=== PATIENT | female | born 1955 | race Caucasian/White ===

== ENCOUNTER → 2020-05-25 | Outpatient (CLI) | payer BC, MEDICARE | END | disposition home or self-care (01) | LOC: LABWHC1 13:52 | PROVIDERS: ATTEND Family Medicine | DX: R05 Cough (principal) | CPT/HCPCS: U0003; C9803 ==

== ENCOUNTER 2023-05-28 12:13 | Inpatient (IN) | payer MEDICARE ==
--- NOTE | 2023-05-28 13:55 | ED ---
SOB HPI - General Chief Complaint: Shortness of Breath Stated Complaint: SOB Time Seen by Provider: 05/28/23 13:01 Source: patient, family, RN notes reviewed Mode of arrival: ambulatory Limitations: no limitations - History of Present Illness Initial Comments: 67-year-old female presents emergency department tingling shortness of breath. Patient states started on Saturday has progressively worsened. She states it's worse when she lays down or she has some exertion. Patient denies any fever, chills or productive cough. She has had mild nasal congestion for 3 weeks. Patient denies any history of CHF denies any leg pain or leg swelling no history of DVT or PE. Patient has a history of diabetes, hypertension hyperlipidemia patient states that she does have some relief if she sits up. - Related Data Allergies Allergy/AdvReac Type Severity Reaction Status Date / Time No Known Allergies Allergy Verified 05/28/23 13:13 Review of Systems ROS Statement: Those systems with pertinent positive or pertinent negative responses have been documented in the HPI. ROS Other: All systems not noted in ROS Statement are negative. Past Medical History Past Medical History: Diabetes Mellitus, Hyperlipidemia, Hypertension History of Any Multi-Drug Resistant Organisms: None Reported Past Surgical History: Cholecystectomy Past Psychological History: No Psychological Hx Reported Smoking Status: Never smoker Past Alcohol Use History: None Reported Past Drug Use History: None Reported General Exam Limitations: no limitations General appearance: alert, in no apparent distress Head exam: Present: atraumatic, normocephalic, normal inspection Eye exam: Present: normal appearance, PERRL, EOMI. Absent: scleral icterus, conjunctival injection, periorbital swelling ENT exam: Present: normal exam, normal oropharynx, mucous membranes moist, TM's normal bilaterally Neck exam: Present: normal inspection, full ROM. Absent: tenderness, meningismus, lymphadenopathy Respiratory exam: Present: rales, decreased breath sounds. Absent: normal lung sounds bilaterally, respiratory distress, wheezes, rhonchi, stridor Cardiovascular Exam: Present: regular rate, normal rhythm, normal heart sounds. Absent: systolic murmur, diastolic murmur, rubs, gallop, clicks Course Vital Signs 05/28/23 05/28/23 13:06 14:15 Temperature 99.1 F Pulse Rate 53 L Respiratory 22 18 Rate Blood Pressure 163/69 O2 Sat by Pulse 85 L Oximetry Medical Decision Making - Medical Decision Making Was pt. sent in by a medical professional or institution (GILLES Marti, CONTENT DEVELOPMENT SPECIALIST, urgent care, hospital, or alf...) When possible be specific @ -No Did you speak to anyone other than the patient for history (EMS, parent, family, police, friend...)? What history was obtained from this source @ -No Did you review nursing and triage notes (agree or disagree)? Why? @ -I reviewed and agree with nursing and triage notes Were old charts reviewed (outside hosp., previous admission, EMS record, old EKG, old radiological studies, urgent care reports/EKG's, alf records)? Report findings @ -No old charts were reviewed Differential Diagnosis (chest pain, altered mental status, abdominal pain women, abdominal pain men, vaginal bleeding, weakness, fever, dyspnea, syncope, headache, dizziness, GI bleed, back pain, seizure, CVA, palpatations, mental health, musculoskeletal)? @ -nDifferential Dyspnea: Coronary syndrome, arrhythmia, tamponade, asthma, COPD, pulmonary embolism, pneumonia, pneumothorax, pulmonary effusion, anaphylaxis, diabetic ketoacidosis, flailed chest, pulmonary contusion, diaphragmatic rupture, anemia, neuromuscular, this is not meant to be an all-inclusive list. e EKG interpreted by me (3pts min.). @ -As above X-rays interpreted by me (1pt min.). @ -Chest x-ray shows pulmonary edema, cardiomegaly CT interpreted by me (1pt min.). @ -CT chest for PE negative for PE shows cardiomegaly, pleural effusions, pulmonary edema U/S interpreted by me (1pt. min.). @ -None done What testing was considered but not performed or refused? (CT, X-rays, U/S, labs)? Why? @ -None What meds were considered but not given or refused? Why? @ -None Did you discuss the management of the patient with other professionals (professionals i.e. GILLES Marti, CONTENT DEVELOPMENT SPECIALIST, lab, RT, psych nurse, social media specialist, semiconductor wafer inspector, teacher, community services officer, supportive employment case manager)? Give summary @ -EMH for admission secondary to pulmonary edema, orthopnea, hypoxia patient's initial pulse ox was 85%. Patient will consult cardiology Was smoking cessation discussed for >3mins.? @ -No Was critical care preformed (if so, how long)? @ -35 Were there social determinants of health that impacted care today? How? (Homelessness, low income, unemployed, alcoholism, drug addiction, transportation, low edu. Level, literacy, decrease access to med. care, custodial, rehab)? @ -No Was there de-escalation of care discussed even if they declined (Discuss DNR or withdrawal of care, Hospice)? DNR status @ -No What co-morbidities impacted this encounter? (DM, HTN, Smoking, COPD, CAD, Cancer, CVA, ARF, Chemo, Hep., AIDS, mental health diagnosis, sleep apnea, morbid obesity)? @ -Hypertension, diabetes Was patient admitted / discharged? Hospital course, mention meds given and route, prescriptions, significant lab abnormalities, going to OR and other pertinent info. @ -Admitted patient presented for orthopnea. Patient found to have pulmonary edema with elevated BMP and pleural effusion. Patient did have initial elevated d-dimer which is negative for PE on CT. Patient's pulse ox was 85% prior to supplemental oxygen. Patient was given Lasix, aspirin was started on heparin for an elevated troponin with cardiology evaluation, every 3 hour troponin. Patient did have echocardiogram ordered. Undiagnosed new problem with uncertain prognosis? @ -No Drug Therapy requiring intensive monitoring for toxicity (Heparin, Nitro, Insulin, Cardizem)? @ -No Were any procedures done? @ -No Diagnosis/symptom? @ -CHF, elevated troponin, hypoxia Acute, or Chronic, or Acute on Chronic? @ -Acute Uncomplicated (without systemic symptoms) or Complicated (systemic symptoms)? @ -Complicated Side effects of treatment? @ -No Exacerbation, Progression, or Severe Exacerbation? @ -No Poses a threat to life or bodily function? How? (Chest pain, [place], [place], pneumonia, PE, COPD, DKA, ARF, appy, cholecystitis, CVA, Diverticulitis, Homicidal, Suicidal, threat to staff... and all critical care pts) @ -yers patient has hypoxia, concern for underlying cardiac disease possible, respiratory arrest - Lab Data Result diagrams: 05/28/23 14:09 05/28/23 14:09 Lab Results 05/28/23 05/28/23 05/28/23 Range/Units 14:09 14:09 14:09 WBC 13.1 H (3.8-10.6) k/uL RBC 4.87 (3.80-5.40) m/uL Hgb 14.2 (11.4-16.0) gm/dL Hct 43.5 (34.0-46.0) % MCV 89.3 (80.0-100.0) fL MCH 29.1 (25.0-35.0) pg MCHC 32.6 (31.0-37.0) g/dL RDW 15.1 (11.5-15.5) % Plt Count 184 (150-450) k/uL MPV 10.8 Neutrophils % 77 % Lymphocytes % 13 % Monocytes % 6 % Eosinophils % 2 % Basophils % 0 % Neutrophils # 10.1 H (1.3-7.7) k/uL Lymphocytes # 1.7 (1.0-4.8) k/uL Monocytes # 0.8 (0-1.0) k/uL Eosinophils # 0.2 (0-0.7) k/uL Basophils # 0.0 (0-0.2) k/uL PT 12.2 (10.0-12.5) sec INR 1.1 (<1.2) APTT 27.3 (22.0-30.0) sec D-Dimer 0.79 H (<0.60) mg/L FEU Sodium 136 L (137-145) mmol/L Potassium 4.2 (3.5-5.1) mmol/L Chloride 101 (98-107) mmol/L Carbon Dioxide 22 (22-30) mmol/L Anion Gap 13 mmol/L BUN 26 H (7-17) mg/dL Creatinine 0.56 (0.52-1.04) mg/dL Est GFR (CKD-EPI)AfAm >90 (>60 ml/min/1.73 sqM) Est GFR (CKD-EPI)NonAf >90 (>60 ml/min/1.73 sqM) Glucose 74 (74-99) mg/dL Calcium 9.1 (8.4-10.2) mg/dL Magnesium 1.5 L (1.6-2.3) mg/dL Total Bilirubin 1.1 (0.2-1.3) mg/dL AST 24 (14-36) U/L ALT 17 (4-34) U/L Alkaline Phosphatase 62 (38-126) U/L Troponin I (0.000-0.034) ng/mL NT-Pro-B Natriuret Pep 5810 pg/mL Total Protein 6.8 (6.3-8.2) g/dL Albumin 3.5 (3.5-5.0) g/dL Coronavirus (PCR) (Not Detectd) 05/28/23 05/28/23 Range/Units 14:09 14:09 WBC (3.8-10.6) k/uL RBC (3.80-5.40) m/uL Hgb (11.4-16.0) gm/dL Hct (34.0-46.0) % MCV (80.0-100.0) fL MCH (25.0-35.0) pg MCHC (31.0-37.0) g/dL RDW (11.5-15.5) % Plt Count (150-450) k/uL MPV Neutrophils % % Lymphocytes % % Monocytes % % Eosinophils % % Basophils % % Neutrophils # (1.3-7.7) k/uL Lymphocytes # (1.0-4.8) k/uL Monocytes # (0-1.0) k/uL Eosinophils # (0-0.7) k/uL Basophils # (0-0.2) k/uL PT (10.0-12.5) sec INR (<1.2) APTT (22.0-30.0) sec D-Dimer (<0.60) mg/L FEU Sodium (137-145) mmol/L Potassium (3.5-5.1) mmol/L Chloride (98-107) mmol/L Carbon Dioxide (22-30) mmol/L Anion Gap mmol/L BUN (7-17) mg/dL Creatinine (0.52-1.04) mg/dL Est GFR (CKD-EPI)AfAm (>60 ml/min/1.73 sqM) Est GFR (CKD-EPI)NonAf (>60 ml/min/1.73 sqM) Glucose (74-99) mg/dL Calcium (8.4-10.2) mg/dL Magnesium (1.6-2.3) mg/dL Total Bilirubin (0.2-1.3) mg/dL AST (14-36) U/L ALT (4-34) U/L Alkaline Phosphatase (38-126) U/L Troponin I 0.058 H* (0.000-0.034) ng/mL NT-Pro-B Natriuret Pep pg/mL Total Protein (6.3-8.2) g/dL Albumin (3.5-5.0) g/dL Coronavirus (PCR) Not Detected (Not Detectd) - EKG Data -: EKG Interpreted by Me EKG Comments: EKG performed at 13:34 A. fib rate of 55 QRS 72 QT/QTC 431/420 Critical Care Time Critical Care Time: Yes Total Critical Care Time: 35 Disposition Clinical Impression: Congestive heart failure, Dyspnea, Elevated troponin Disposition: ADMITTED IP TO THIS HOSP Condition: Fair Referrals: Tomasz Singh DO [Primary Care Provider] - 1-2 days Time of Disposition: 15:39
[2023-05-28 14:22] LABS: Basophils % (A) 0 %; Eosinophils # (A) 0.2 k/uL (0-0.7); Eosinophils % (A) 2 %; HCT 43.5 % (34.0-46.0); HGB 14.2 gm/dL (11.4-16.0); Lymphocytes # (A) 1.7 k/uL (1.0-4.8); Lymphocytes % (A) 13 %; MCH 29.1 pg (25.0-35.0); MCHC 32.6 g/dL (31.0-37.0); MCV 89.3 fL (80.0-100.0); Mean Platelet Volume 10.8; Monocytes # (A) 0.8 k/uL (0-1.0); Monocytes % (A) 6 %; Neutrophils # (A) 10.1 k/uL (1.3-7.7); Neutrophils % (A) 77 %; Platelet Count 184 k/uL (150-450); RBC 4.87 m/uL (3.80-5.40); RDW 15.1 % (11.5-15.5); WBC 13.1 k/uL (3.8-10.6)
--- NOTE | 2023-05-28 14:22 | XR ---
EXAMINATION TYPE: XR chest 2V DATE OF EXAM: 05/28/2023 COMPARISON: NONE HISTORY: Shortness of breath TECHNIQUE: Frontal and lateral views of the chest are obtained. FINDINGS: Scattered senescent parenchymal changes noted. No evidence for infiltrate. No evidence for atelectasis. There is evidence of cardiomegaly with pulmonary venous congestion without overt failure. Mediastinal structures are stable and grossly unremarkable. No evidence for hilar prominence. Degenerative changes dorsal spine. IMPRESSION: 1. There is evidence of cardiomegaly with pulmonary venous congestion without overt failure.
[2023-05-28 14:40] LABS: INR 1.1 (<1.2); Partial Thromboplastin Time 27.3 sec (22.0-30.0); Prothrombin Time 12.2 sec (10.0-12.5)
[2023-05-28 14:48] LABS: ALT 17 U/L (4-34); AST 24 U/L (14-36); African American GFR (CKD) >90 (>60 ml/min/1.73 sqM); Albumin 3.5 g/dL (3.5-5.0); Alkaline Phosphatase 62 U/L (38-126); Anion Gap 13 mmol/L; Blood Urea Nitrogen 26 mg/dL (7-17); Calcium 9.1 mg/dL (8.4-10.2); Carbon Dioxide 22 mmol/L (22-30); Chloride 101 mmol/L (98-107); Glucose 74 mg/dL (74-99); Magnesium 1.5 mg/dL (1.6-2.3); Non-African American GFR(CKD) >90 (>60 ml/min/1.73 sqM); Potassium 4.2 mmol/L (3.5-5.1); Sodium 136 mmol/L (137-145); Total Bilirubin 1.1 mg/dL (0.2-1.3); Total Protein 6.8 g/dL (6.3-8.2)
[2023-05-28 14:57] LABS: NT-Pro-B-Type Natriuretic Pept 5810 pg/mL
[2023-05-28] MEDS ORDERED: HEPARIN SODIUM 1,000 UN/ML (10ML VL) IV PRN (15:04)
[2023-05-28] MEDS ORDERED: HEPARIN SODIUM 1,000 UN/ML (10ML VL) IV ONE (15:04)
[2023-05-28] MEDS ORDERED: ASPIRIN 81 MG PO STA (15:05)
[2023-05-28] MEDS ORDERED: FUROSEMIDE 10 MG/ML 4 ML VIAL IV STA (15:05)
--- NOTE | 2023-05-28 15:31 | CT ---
EXAMINATION TYPE: CT chest angio for PE CT DLP: 575 mGycm, Automated exposure control for dose reduction was used. DATE OF EXAM: 05/28/2023 3:24 PM COMPARISON: Chest radiograph from same day. CLINICAL INDICATION:Female, 67 years old with history of sob; elevated d-dimer TECHNIQUE/CONTRAST: CTA scan of the thorax is performed with IV Contrast, patient injected with 100 mL of Isovue 370, MIP images are created and reviewed these are created on a separate workstation.. FINDINGS: Pulmonary Artery: There is no evidence for a filling defect within the pulmonary vasculature to sugge st acute pulmonary embolism. The pulmonary artery is of normal size. Lungs/Pleura: Mild intralobular septal thickening. No evidence for consolidation or pneumothorax. Tra ce bilateral pleural effusions. Airway: Large airways are patent. Heart: Heart is enlarged for size. There is mitral valve annular cusp patient's. Coronary artery cusp patient's are mild. Vasculature: No evidence of aortic aneurysm. Mediastinum: No gross evidence of adenopathy. Musculoskeletal: Moderate degenerative disc disease changes are present throughout the thoracolumbar spine. Soft Tissues: Unremarkable. Lower neck: No significant findings. Upper Abdomen: Nodular contour to liver. Spleen is within normal limits for size. The gallbladder dianna gically absent.. IMPRESSION: 1. No evidence of pulmonary embolism. 2. Cardiomegaly with trace bilateral pleural effusions an pulmonary vascular prominence. Correlate fo r for congestive heart failure 3. Hepatic cirrhosis.
[2023-05-28] MEDS ORDERED: FUROSEMIDE 10 MG/ML 4 ML VIAL IV SCH (15:45)
[2023-05-28] MEDS: HEPARIN SOD,PORK IN 0.45% NACL 25,000 UNIT in 0.45% NACL 1 250ML.BAG IV SCH (16:13)
[2023-05-28] MEDS ORDERED: DEXTROSE 50% SYRINGE 50 ML IVP PRN ×2 (17:57)
[2023-05-28 18:42] LABS: Glucose,Whole Blood 123 mg/dL (70-110)
[2023-05-28 20:30] LABS: Glucose,Whole Blood 228 mg/dL (70-110)
[2023-05-28] MEDS: ATORVASTATIN 40 MG TAB PO SCH (21:41)
[2023-05-28] MEDS: INSULIN ASPART (NovoLOG) 100 UNIT/ML VIAL SQ SCH (21:41)
[2023-05-29] MEDS: ACETAMINOPHEN TAB 325 MG TAB PO PRN ×2 (05:55→23:51)
[2023-05-29 06:38] LABS: Glucose,Whole Blood 100 mg/dL (70-110)
[2023-05-29] MEDS: INSULIN ASPART (NovoLOG) 100 UNIT/ML VIAL SQ SCH ×7 (06:41→20:43)
[2023-05-29] MEDS: FUROSEMIDE 10 MG/ML 4 ML VIAL IV SCH ×2 (06:50→17:02)
[2023-05-29] MEDS: PARoxetine 20 MG TAB PO SCH (08:48)
[2023-05-29] MEDS: DAPAGLIFLOZIN PROPANEDIOL 10 MG TABLET PO SCH (08:48)
[2023-05-29] MEDS: ASPIRIN 81 MG PO SCH (08:48)
[2023-05-29 08:58] LABS: Basophils % (A) 1 %; Eosinophils # (A) 0.3 k/uL (0-0.7); Eosinophils % (A) 3 %; HCT 42.1 % (34.0-46.0); HGB 13.7 gm/dL (11.4-16.0); Lymphocytes # (A) 1.5 k/uL (1.0-4.8); Lymphocytes % (A) 16 %; MCH 29.3 pg (25.0-35.0); MCHC 32.6 g/dL (31.0-37.0); MCV 89.9 fL (80.0-100.0); Monocytes # (A) 0.6 k/uL (0-1.0); Monocytes % (A) 7 %; Neutrophils # (A) 6.9 k/uL (1.3-7.7); Neutrophils % (A) 72 %; Platelet Count 173 k/uL (150-450); RBC 4.69 m/uL (3.80-5.40); WBC 9.6 k/uL (3.8-10.6)
[2023-05-29] MEDS ORDERED: METOPROLOL SUCCINATE (ER) 50 MG TAB.ER.24H PO SCH (09:00)
[2023-05-29] MEDS ORDERED: NALOXONE 0.4 MG/ML 1 ML VIAL IV PRN (09:10)
[2023-05-29] MEDS ORDERED: ONDANSETRON 4 MG/2 ML VIAL IVP PRN (09:10)
[2023-05-29 09:13] LABS: INR 1.2 (<1.2); Prothrombin Time 12.5 sec (10.0-12.5)
--- NOTE | 2023-05-29 11:21 | P.HPIM ---
History of Present Illness H&P Date: 05/29/23 Chief Complaint: Shortness of breath * 67-year-old lady with past medical history of diabetes mellitus, hypertension, hyperlipidemia presents to the emergency department with difficulty in breathing. Patient had symptom onset for 72 hours prior to presentation. Patient is unable to lay down and also complained of exertional shortness of breath. Patient states she had nasal congestion for 3 weeks. She denies associated fever, chills, cough. * Workup initiated in ER showed CBC which showed WBC of 13.1 hemoglobin of 14.2 platelet count of 184. INR is 1.1, d-dimer 0.79 * Serum chemistry shows sodium 136 potassium 4.2 carbon dioxide 20 to be and 26 creatinine 0.57 blood glucose 228 * Troponin 0.043, N-terminal proBNP 5810 * Chest x-ray shows evidence of cardiomegaly with pulmonary venous congestion * CT chest negative for pulmonary embolism cardiomegaly with pleural effusion * Patient had elevated troponin and serial troponins ordered, EKG obtained showed irregular rhythm with atrial fibrillation * Patient started on heparin drip with consultation from cardiology REVIEW OF SYSTEMS: Shortness of breath, orthopnea CONSTITUTIONAL: No fever, no malaise, no fatigue. HEENT: No recent visual problems or hearing problems. Denied any sore throat. CARDIOVASCULAR: Shortness of breath, orthopnea PULMONARY: Shortness of breath, orthopnea GASTROINTESTINAL: No diarrhea, no nausea, no vomiting, no abdominal pain. NEUROLOGICAL: No headaches, no weakness, no numbness. HEMATOLOGICAL: Denies any bleeding or petechiae. GENITOURINARY: Denies any burning micturition, frequency, or urgency. MUSCULOSKELETAL/RHEUMATOLOGICAL: Denies any joint pain, swelling, or any muscle pain. ENDOCRINE: Denies any polyuria or polydipsia. PHYSICAL EXAMINATION: GENERAL: The patient is alert and oriented x3, HEENT: Pupils are round and equally reacting to light. EOMI. CARDIOVASCULAR: S1 and S2 present. No murmurs, rubs, or gallops. Bilateral leg edema PULMONARY: Chest is clear to auscultation, no wheezing or crackles. ABDOMEN: Soft, nontender, nondistended, normoactive bowel sounds. No palpable organomegaly. MUSCULOSKELETAL: No joint swelling or deformity. EXTREMITIES: No cyanosis, clubbing, or pedal edema. NEUROLOGICAL: Gross neurological examination did not reveal any focal deficits. SKIN: No rashes. Past Medical History Past Medical History: Diabetes Mellitus, Hyperlipidemia, Hypertension History of Any Multi-Drug Resistant Organisms: None Reported Past Surgical History: Cholecystectomy Past Anesthesia/Blood Transfusion Reactions: No Reported Reaction Past Psychological History: No Psychological Hx Reported Smoking Status: Never smoker Past Alcohol Use History: None Reported Past Drug Use History: None Reported - Past Family History Father Family Medical History: Congestive Heart Failure (CHF), Diabetes Mellitus Mother Family Medical History: Congestive Heart Failure (CHF), Diabetes Mellitus Son(s) Family Medical History: Diabetes Mellitus Sister(s) Family Medical History: Diabetes Mellitus Medications and Allergies Home Medications Medication Instructions Recorded Confirmed Type Aspirin EC [Ecotrin Low Dose] 81 mg PO DAILY 05/28/23 05/28/23 History Dapagliflozin Propanediol [Farxiga] 10 mg PO DAILY 05/28/23 05/28/23 History INSULIN ASPART (NovoLOG) [NovoLOG 20 unit SQ ACHS 05/28/23 05/28/23 History (formulary)] Insulin Degludec [Tresiba 140 units SQ HS 05/28/23 05/28/23 History Flextouch U-200 Pen] Liraglutide [Victoza 3-Luca] 1.8 mg SQ DAILY 05/28/23 05/28/23 History Lovastatin [Mevacor] 80 mg PO HS 05/28/23 05/28/23 History Metoprolol Succinate [Toprol XL] 50 mg PO DAILY 05/28/23 05/28/23 History PARoxetine HCL [Paxil] 20 mg PO DAILY 05/28/23 05/28/23 History hydroCHLOROthiazide [Hydrodiuril] 25 mg PO DAILY 05/28/23 05/28/23 History metFORMIN HCL [Glucophage] 1,000 mg PO BID 05/28/23 05/28/23 History Allergies Allergy/AdvReac Type Severity Reaction Status Date / Time No Known Allergies Allergy Verified 05/28/23 15:44 Physical Exam Vitals: Vital Signs Temp Pulse Pulse Resp BP BP Pulse Ox 05/29/23 08:00 98.2 F 53 L 18 159/67 98 05/29/23 04:00 45 L 18 136/70 98 05/29/23 02:00 44 L 16 05/29/23 00:00 44 L 16 152/79 98 05/28/23 20:00 98.1 F 51 L 20 123/61 95 05/28/23 17:35 50 L 18 106/61 97 05/28/23 14:15 18 05/28/23 13:06 99.1 F 53 L 22 163/69 85 L Intake and Output 05/28/23 05/29/23 05/29/23 22:59 06:59 14:59 Output Total 850 Balance -850 Output: Urine 850 Other: Voiding Method Toilet Toilet Toilet # Voids 1 Weight 94.801 kg 95 kg Results CBC & Chem 7: 05/29/23 08:27 05/28/23 14:09 Labs: Abnormal Lab Results - Last 24 Hours (Table) 05/28/23 05/28/23 05/28/23 Range/Units 14:09 14:09 14:09 WBC 13.1 H (3.8-10.6) k/uL Neutrophils # 10.1 H (1.3-7.7) k/uL APTT (22.0-30.0) sec D-Dimer 0.79 H (<0.60) mg/L FEU Sodium 136 L (137-145) mmol/L BUN 26 H (7-17) mg/dL POC Glucose (mg/dL) (70-110) mg/dL Magnesium 1.5 L (1.6-2.3) mg/dL Troponin I (0.000-0.034) ng/mL 05/28/23 05/28/23 05/28/23 Range/Units 14:09 18:31 18:38 WBC (3.8-10.6) k/uL Neutrophils # (1.3-7.7) k/uL APTT (22.0-30.0) sec D-Dimer (<0.60) mg/L FEU Sodium (137-145) mmol/L BUN (7-17) mg/dL POC Glucose (mg/dL) 123 H (70-110) mg/dL Magnesium (1.6-2.3) mg/dL Troponin I 0.058 H* 0.052 H* (0.000-0.034) ng/mL 05/28/23 05/28/23 05/28/23 Range/Units 20:28 20:51 20:51 WBC (3.8-10.6) k/uL Neutrophils # (1.3-7.7) k/uL APTT 47.1 H (22.0-30.0) sec D-Dimer (<0.60) mg/L FEU Sodium (137-145) mmol/L BUN (7-17) mg/dL POC Glucose (mg/dL) 228 H (70-110) mg/dL Magnesium (1.6-2.3) mg/dL Troponin I 0.043 H* (0.000-0.034) ng/mL Thrombosis Risk Factor Assmnt - Choose All That Apply Any of the Below Risk Factors Present?: Yes Each Factor Represents 1 point: Obesity (BMI >25) Other Risk Factors: Yes Each Risk Factor Represents 2 Points: Age 61-74 years Other congenital or acquired thrombophilia - If yes, enter type in comment: No Thrombosis Risk Factor Assessment Total Risk Factor Score: 3 Thrombosis Risk Factor Assessment Level: Moderate Risk Assessment and Plan Assessment: Assessment and plan Acute onset congestive heart failure Non-ST elevated MA Atrial fibrillation new onset Diabetes mellitus type 2 Hypertension Hyperlipidemia * In regards to acute congestive heart failure echocardiogram ordered, continue patient on IV Lasix continue to monitor intake and output, cardiology consulted serial troponins ordered * In regards to elevated troponin, continue aspirin, Lipitor, IV heparin cardiology consulted echocardiogram ordered * In regards to diabetes mellitus Accu-Cheks before meals at bedtime continue patient on correctional insulin monitor for hypoglycemia * In regards to hypertension continue metoprolol * In regards to new onset atrial fibrillation, continue telemetry monitoring will appreciate input from cardiology continue patient on IV heparin * CODE STATUS is full code
[2023-05-29 12:29] LABS: Glucose,Whole Blood 155 mg/dL (70-110)
--- NOTE | 2023-05-29 12:43 | P.CRDCN ---
History of Present Illness Consult date: 05/29/23 Consult reason: congestive heart failure (Abnormal EKG) History of present illness: History of present illness: This is a 67 year old female with no previous cardiac history, does not follow with a cork compounder. She has a past medical history of diabetes, hypertension, hyperlipidemia. She denies any history of lung problems are COPD. Patient states that she developed a breathing issue that started on Saturday especially when she lays down. On Saturday she noticed that she was feeling lightheaded and has not had that feeling before. She saw her primary care physician on Saturday and was instructed to come in the hospital. She has never had this problem before. She denies any new medications. She denies history of heart failure or any arrhythmias. She states that she occasionally gets ankle swelling and is usually able to lay flat in bed. She has been started on IV Lasix and feels that she is better today and she has been urinating quite a bit. States that she is almost back to normal. Patient has been started on a heparin drip and IV Lasix. Telemetry shows heart rate in the 30s and 40s. Patient denies having stress test done in the past. EKG sinus rhythm second degree block most likely type II, possibly type I Chest x-ray: Cardiomegaly with pulmonary venous congestion without overt failure. CTA of the chest revealed no pulmonary embolism. Cardiomegaly with trace bilateral pleural effusions and pulmonary vascular prominence. Hepatic cirrhosis. Initial WBC 13.1 on 9.6, hemoglobin 13.7, platelet count 173. INR 1.2. D-dimer 0.79. Electrolytes and renal function unremarkable. Troponins 0.058, 0.052, 0.043 and 0.027. Home cardiac medications: aspirin 81 mg daily, Farxiga 10 mg daily, hydrochlorothiazide 25 mg daily, lovastatin 80 mg at bedtime, Toprol-XL 50 mg daily Review Of Systems: At the time of my evaluation: Constitutional: No fever, no chills. No weakness, fatigue or lethargy. EENT: No headache. No dizziness. Lungs: No shortness of breath, cough, no sputum production. No wheezing. Cardiovascular: No chest pain, no lower extremity edema. No palpitations. No paroxysmal nocturnal dyspnea. No orthopnea. No lightheadedness or dizziness. No syncopal episodes. Abdominal: No abdominal pain. No nausea, vomiting. No diarrhea. No constipation. No bloody or tarry stools. Genitourinary: No dysuria.. No urinary retention. Musculoskeletal: No myalgias. No muscle weakness, no frequent falls. No back pain. No neck pain. Integumentary: No wounds. No rash. No unusual bruising. Neurologic: No aphasia. No facial droop. No change in mentation. No head injury. No headache. Physical examination: Gen: This is a [ ] VS: reviewed HEENT: Head is atraumatic, normocephalic. Pupils equal, round. Sclerae is anicteric. NECK: Supple. No JVD. . LUNGS: Clear to auscultation. No wheezes or rhonchi. No intercostal retractions. HEART: Regular rate and rhythm. No murmur. ABDOMEN: Soft No tenderness. EXTREMITIES: No pedal edema. No calf tenderness. NEUROLOGICAL: Patient is awake, alert and oriented x3. Assessment: Acute heart failure Second-degree heart block likely type II, possible type I Elevated troponins, rule out non-ST GA Hypertension Hyperlipidemia Diabetes Plan: Discontinue beta adalid Continue IV Lasix Monitor I&O, daily weights, electrolytes and renal function Continue heparin drip Obtain 2-D echocardiogram and Doppler study to assess cardiac structure and f unction Likely plan for cardiac catheterization or stress testing depending on results of echocardiogram Further recommendations to follow based upon clinical course Thank you kindly for this consultation. Nurse practitioner note has been reviewed, I agree with documented findings and plan of care. Patient was seen and examined. Past Medical History Past Medical History: Diabetes Mellitus, Hyperlipidemia, Hypertension History of Any Multi-Drug Resistant Organisms: None Reported Past Surgical History: Cholecystectomy Past Anesthesia/Blood Transfusion Reactions: No Reported Reaction Past Psychological History: No Psychological Hx Reported Smoking Status: Never smoker Past Alcohol Use History: None Reported Past Drug Use History: None Reported - Past Family History Father Family Medical History: Congestive Heart Failure (CHF), Diabetes Mellitus Mother Family Medical History: Congestive Heart Failure (CHF), Diabetes Mellitus Son(s) Family Medical History: Diabetes Mellitus Sister(s) Family Medical History: Diabetes Mellitus Medications and Allergies Home Medications Medication Instructions Recorded Confirmed Type Aspirin EC [Ecotrin Low Dose] 81 mg PO DAILY 05/28/23 05/28/23 History Dapagliflozin Propanediol [Farxiga] 10 mg PO DAILY 05/28/23 05/28/23 History INSULIN ASPART (NovoLOG) [NovoLOG 20 unit SQ ACHS 05/28/23 05/28/23 History (formulary)] Insulin Degludec [Tresiba 140 units SQ HS 05/28/23 05/28/23 History Flextouch U-200 Pen] Liraglutide [Victoza 3-Luca] 1.8 mg SQ DAILY 05/28/23 05/28/23 History Lovastatin [Mevacor] 80 mg PO HS 05/28/23 05/28/23 History Metoprolol Succinate [Toprol XL] 50 mg PO DAILY 05/28/23 05/28/23 History PARoxetine HCL [Paxil] 20 mg PO DAILY 05/28/23 05/28/23 History hydroCHLOROthiazide [Hydrodiuril] 25 mg PO DAILY 05/28/23 05/28/23 History metFORMIN HCL [Glucophage] 1,000 mg PO BID 05/28/23 05/28/23 History Allergies Allergy/AdvReac Type Severity Reaction Status Date / Time No Known Allergies Allergy Verified 05/28/23 15:44 Physical Exam Vitals: Vital Signs Temp Pulse Pulse Resp BP BP Pulse Ox 05/29/23 09:49 97 05/29/23 08:00 98.2 F 53 L 18 159/67 98 05/29/23 04:00 45 L 18 136/70 98 05/29/23 02:00 44 L 16 05/29/23 00:00 44 L 16 152/79 98 05/28/23 20:00 98.1 F 51 L 20 123/61 95 05/28/23 17:35 50 L 18 106/61 97 05/28/23 14:15 18 05/28/23 13:06 99.1 F 53 L 22 163/69 85 L Intake and Output 05/28/23 05/29/23 05/29/23 22:59 06:59 14:59 Output Total 850 Balance -850 Output: Urine 850 Other: Voiding Method Toilet Toilet Toilet # Voids 1 Weight 94.801 kg 95 kg Results 05/29/23 08:27 05/28/23 14:09 Cardiac Enzymes 05/28/23 05/28/23 05/28/23 Range/Units 14:09 14:09 18:31 AST 24 (14-36) U/L Troponin I 0.058 H* 0.052 H* (0.000-0.034) ng/mL 05/28/23 Range/Units 20:51 AST (14-36) U/L Troponin I 0.043 H* (0.000-0.034) ng/mL Coagulation 05/28/23 05/28/23 05/29/23 Range/Units 14:09 20:51 08:27 PT 12.2 12.5 (10.0-12.5) sec APTT 27.3 47.1 H (22.0-30.0) sec CBC 05/28/23 05/29/23 Range/Units 14:09 08:27 WBC 13.1 H 9.6 (3.8-10.6) k/uL RBC 4.87 4.69 (3.80-5.40) m/uL Hgb 14.2 13.7 (11.4-16.0) gm/dL Hct 43.5 42.1 (34.0-46.0) % Plt Count 184 173 (150-450) k/uL Comprehensive Metabolic Panel 05/28/23 Range/Units 14:09 Sodium 136 L (137-145) mmol/L Potassium 4.2 (3.5-5.1) mmol/L Chloride 101 (98-107) mmol/L Carbon Dioxide 22 (22-30) mmol/L BUN 26 H (7-17) mg/dL Creatinine 0.56 (0.52-1.04) mg/dL Glucose 74 (74-99) mg/dL Calcium 9.1 (8.4-10.2) mg/dL AST 24 (14-36) U/L ALT 17 (4-34) U/L Alkaline Phosphatase 62 (38-126) U/L Total Protein 6.8 (6.3-8.2) g/dL Albumin 3.5 (3.5-5.0) g/dL Current Medications Generic Name Dose Route Start Last Admin Trade Name Freq PRN Reason Stop Dose Admin Acetaminophen 650 mg 05/29/23 05:49 05/29/23 05:55 Acetaminophen Tab 325 Mg Tab PO 650 mg Q6HR PRN Administration Fever and/ or Mild Pain Aspirin 81 mg 05/29/23 09:00 05/29/23 08:48 Aspirin 81 Mg PO 81 mg DAILY ISAÍAS Administration Atorvastatin Calcium 40 mg 05/28/23 21:00 05/28/23 21:41 Atorvastatin 40 Mg Tab PO 40 mg HS [facility] Administration Dapagliflozin 10 mg 05/29/23 09:00 05/29/23 08:48 Dapagliflozin Propanediol 10 Mg Tablet PO 10 mg DAILY ISAÍAS Administration Dextrose/Water 25 ml 05/28/23 17:57 Dextrose 50% Syringe 50 Ml IVP PER PROTOCOL PRN Hypoglycemia Protocol Dextrose/Water 50 ml 05/28/23 17:57 Dextrose 50% Syringe 50 Ml IVP PER PROTOCOL PRN Hypoglycemia Protocol Furosemide 40 mg 05/29/23 06:00 05/29/23 06:50 Furosemide 10 Mg/Ml 4 Ml Vial IV 40 mg Q12H ISAÍAS Administration Heparin Sodium (Porcine) 0 unit 05/28/23 15:04 Heparin Sodium 1,000 Un/Ml (10ml Vl) IV PER PROTOCOL PRN Low PTT Protocol Heparin Sodium/Sodium Chloride 250 mls @ 11.376 mls/hr 05/28/23 15:15 05/28/23 16:13 25,000 unit/ Sodium Chloride IV 12 units/kg/hr .[id number] ISAÍAS 11.376 mls/hr Administration Protocol 12 UNITS/KG/HR Insulin Aspart 0 unit 05/28/23 21:00 05/29/23 06:41 Insulin Aspart (Novolog) 100 Unit/Ml Vial SQ Not Given [facility] Protocol Insulin Aspart 20 unit 05/29/23 12:30 Insulin Aspart (Novolog) 100 Unit/Ml Vial SQ [facility] Insulin Detemir 80 unit 05/29/23 21:00 Insulin Detemir (Levemir) 100 Unit/Ml Syr SQ [facility] Metformin HCl 1,000 mg 05/29/23 17:30 Metformin 500 Mg Tab PO BID-W/MEALS [facility] Metoprolol Succinate 50 mg 05/29/23 09:00 05/29/23 08:48 Metoprolol Succinate (Er) 50 Mg Tab.Er.24h PO 50 mg DAILY [facility] Administration Naloxone HCl 0.2 mg 05/29/23 09:10 Naloxone 0.4 Mg/Ml 1 Ml Vial IV Q2M PRN Opioid Reversal Ondansetron HCl 4 mg 05/29/23 09:10 Ondansetron 4 Mg/2 Ml Vial IVP Q8HR PRN Nausea And Vomiting Paroxetine HCl 20 mg 05/29/23 09:00 05/29/23 08:48 Paroxetine 20 Mg Tab PO 20 mg DAILY ISAÍAS Administration Intake and Output 05/28/23 05/29/23 05/29/23 22:59 06:59 14:59 Output Total 850 Balance -850 Output: Urine 850 Other: Voiding Method Toilet Toilet Toilet # Voids 1 Weight 94.801 kg 95 kg 05/29/23 08:27 05/28/23 14:09
[2023-05-29] MEDS: HEPARIN SOD,PORK IN 0.45% NACL 25,000 UNIT in 0.45% NACL 1 250ML.BAG IV SCH ×2 (13:22→20:43)
[2023-05-29 16:08] LABS: Glucose,Whole Blood 142 mg/dL (70-110)
[2023-05-29] MEDS: metFORMIN 500 MG TAB PO SCH (16:54)
[2023-05-29 20:23] LABS: Glucose,Whole Blood 133 mg/dL (70-110)
[2023-05-29] MEDS ORDERED: TEMAZEPAM 7.5 MG CAP PO PRN (20:29)
[2023-05-29] MEDS: INSULIN DETEMIR (LEVEMIR) 100 UNIT/ML SYR SQ SCH (20:42)
[2023-05-29] MEDS: ATORVASTATIN 40 MG TAB PO SCH (20:43)
[2023-05-29] MEDS ORDERED: NON FORMULARY DRUG (Lovastatin 40 MG Tab) PO SCH (21:00)
[2023-05-30 02:39] LABS: HCT 43.4 % (34.0-46.0); HGB 14.3 gm/dL (11.4-16.0); MCH 29.6 pg (25.0-35.0); MCHC 32.9 g/dL (31.0-37.0); Mean Platelet Volume 10.4; Platelet Count 208 k/uL (150-450); RBC 4.82 m/uL (3.80-5.40); WBC 11.7 k/uL (3.8-10.6)
[2023-05-30 03:09] LABS: Glucose,Whole Blood 71 mg/dL (70-110)
[2023-05-30 03:20] LABS: NT-Pro-B-Type Natriuretic Pept 1190 pg/mL
[2023-05-30 03:32] LABS: African American GFR (CKD) >90 (>60 ml/min/1.73 sqM); Anion Gap 10 mmol/L; Blood Urea Nitrogen 32 mg/dL (7-17); C Reactive Protein 8.4 mg/dL (<1.0); Carbon Dioxide 29 mmol/L (22-30); Chloride 98 mmol/L (98-107); Glucose 60 mg/dL (74-99); Non-African American GFR(CKD) >90 (>60 ml/min/1.73 sqM); Potassium 3.7 mmol/L (3.5-5.1); Sodium 137 mmol/L (137-145)
[2023-05-30 07:04] LABS: Glucose,Whole Blood 124 mg/dL (70-110)
[2023-05-30] MEDS: FUROSEMIDE 10 MG/ML 4 ML VIAL IV SCH ×2 (07:05→17:17)
[2023-05-30] MEDS: metFORMIN 500 MG TAB PO SCH ×2 (07:05→15:45)
[2023-05-30] MEDS: INSULIN ASPART (NovoLOG) 100 UNIT/ML VIAL SQ SCH ×8 (07:05→21:03)
[2023-05-30] MEDS: ASPIRIN 81 MG PO SCH (09:32)
[2023-05-30] MEDS: DAPAGLIFLOZIN PROPANEDIOL 10 MG TABLET PO SCH (09:32)
[2023-05-30] MEDS: PARoxetine 20 MG TAB PO SCH (09:32)
[2023-05-30 11:21] LABS: Glucose,Whole Blood 137 mg/dL (70-110)
--- NOTE | 2023-05-30 11:53 | P.PN ---
Subjective Progress Note Date: 05/30/23 * 67-year-old lady with past medical history of diabetes mellitus, hypertension, hyperlipidemia presents to the emergency department with difficulty in breathing. Patient had symptom onset for 72 hours prior to presentation. Patient is unable to lay down and also complained of exertional shortness of breath. Patient states she had nasal congestion for 3 weeks. She denies associated fever, chills, cough. * Workup initiated in ER showed CBC which showed WBC of 13.1 hemoglobin of 14.2 platelet count of 184. INR is 1.1, d-dimer 0.79 * Serum chemistry shows sodium 136 potassium 4.2 carbon dioxide 20 to be and 26 creatinine 0.57 blood glucose 228 * Troponin 0.043, N-terminal proBNP 5810 * Chest x-ray shows evidence of cardiomegaly with pulmonary venous congestion * CT chest negative for pulmonary embolism cardiomegaly with pleural effusion * Patient had elevated troponin and serial troponins ordered, EKG obtained showed irregular rhythm with atrial fibrillation * Patient started on heparin drip with consultation from cardiology * 05/30/23: Patient seen and evaluated bedside, patient's her breathing has improved, on oxygen through nasal cannula, patient on 2 L of oxygen, noted to have bradycardia however asymptomatic. Serum chemistry within normal limits. HbA1c 8.6 CRP elevated N-terminal proBNP elevated. Continue patient on heparin drip, Objective - Vital Signs Vital signs: Vital Signs Temp 97.4 F L 05/30/23 08:00 Pulse 57 L 05/30/23 08:00 Resp 17 05/30/23 08:00 BP 159/65 05/30/23 08:00 Pulse Ox 98 05/30/23 08:00 FiO2 Intake & Output 05/29/23 05/30/23 05/30/23 18:59 06:59 18:59 Intake Total 790 78.494 Output Total 900 800 Balance -110 -721.506 Weight 92.1 kg Intake: Intake, IV Titration 250 78.494 Amount Heparin Sod,Pork in 0.45% 250 78.494 NaCl 25,000 unit In 0.45 % NaCl 1 250ml.bag @ 12 UNITS/KG/HR 11.376 mls/hr IV .[id number] [facility] Rx#: [id number] Oral 540 Output: Urine 900 800 Other: Voiding Method Toilet Toilet Toilet # Voids 1 2 # Bowel Movements 1 1 - Exam PHYSICAL EXAMINATION: GENERAL: The patient is alert and oriented x3,nasal cannula in place HEENT: Pupils are round and equally reacting to light. EOMI. CARDIOVASCULAR: S1 and S2 present. No murmurs, rubs, or gallops. Bilateral leg edema, bradycardia PULMONARY: Decreased breath sounds bilaterally, lower extremity edema ABDOMEN: Soft, nontender, nondistended, normoactive bowel sounds. No palpable organomegaly. MUSCULOSKELETAL: No joint swelling or deformity. EXTREMITIES: No cyanosis, clubbing, or pedal edema. NEUROLOGICAL: Gross neurological examination did not reveal any focal deficits. SKIN: No rashes. - Labs CBC & Chem 7: 05/30/23 02:27 05/30/23 02:27 Labs: Abnormal Lab Results - Last 24 Hours (Table) 05/29/23 05/29/23 05/29/23 Range/Units 12:28 16:07 18:09 WBC (3.8-10.6) k/uL APTT 35.6 H (22.0-30.0) sec BUN (7-17) mg/dL Glucose (74-99) mg/dL POC Glucose (mg/dL) 155 H 142 H (70-110) mg/dL Hemoglobin A1c (<=6.0) % C-Reactive Protein (<1.0) mg/dL 05/29/23 05/30/23 05/30/23 Range/Units 20:22 02:27 02:27 WBC 11.7 H (3.8-10.6) k/uL APTT (22.0-30.0) sec BUN (7-17) mg/dL Glucose (74-99) mg/dL POC Glucose (mg/dL) 133 H (70-110) mg/dL Hemoglobin A1c 8.6 H (<=6.0) % C-Reactive Protein (<1.0) mg/dL 05/30/23 05/30/23 05/30/23 Range/Units 02:27 02:27 07:02 WBC (3.8-10.6) k/uL APTT 41.1 H (22.0-30.0) sec BUN 32 H (7-17) mg/dL Glucose 60 L (74-99) mg/dL POC Glucose (mg/dL) 124 H (70-110) mg/dL Hemoglobin A1c (<=6.0) % C-Reactive Protein 8.4 H (<1.0) mg/dL 05/30/23 Range/Units 11:20 WBC (3.8-10.6) k/uL APTT (22.0-30.0) sec BUN (7-17) mg/dL Glucose (74-99) mg/dL POC Glucose (mg/dL) 137 H (70-110) mg/dL Hemoglobin A1c (<=6.0) % C-Reactive Protein (<1.0) mg/dL Assessment and Plan Assessment: Assessment and plan Acute onset congestive heart failure Non-ST elevated GA Atrial fibrillation new onset Diabetes mellitus type 2 Hypertension Hyperlipidemia * In regards to acute congestive heart failure echocardiogram ordered pending , continue patient on IV Lasix continue to monitor intake and output, cardiology consulted serial troponins ordered * In regards to elevated troponin, continue aspirin, Lipitor, IV heparin cardiology consulted echocardiogram ordered * In regards to diabetes mellitus Accu-Cheks before meals at bedtime continue patient on correctional insulin monitor for hypoglycemia * In regards to hypertension , metoprolol discontinued secondary to [place] Cardia, started on amlodipine * In regards to new onset atrial fibrillation, continue telemetry monitoring wi ll appreciate input from cardiology continue patient on IV heparin * CODE STATUS is full code
--- NOTE | 2023-05-30 12:05 | CA ---
Transthoracic Echo Report Name: Nichelle Brooks Age: 67 Gender: F : 1955 Exam Date: 05/29/2023 11:31 Exam Location: [place] [facility] Ht (in): 62 Wt (lb): 209 Ordering Physician: Francisco Nguyễn Attending/Referring Phys: [id number], Gopi [employer] Tm Meg Procedure CPT: Indications: Heart failure Cardiac Hx: Technical Quality: Technically difficult study Contrast 1: Lumason Total Dose (mL): Contrast 2: Total Dose (mL): MEASUREMENTS (Male / Female) Normal Values 2D ECHO LVOT Diameter 2.0 cm Aortic Root Diameter 2.6 cm LA Systolic Diameter LX 3.2 cm 3.0 - 4.0 / 2.7 - 3.8 cm LV Diastolic Volume MOD BP 51.6 cm??? 67 - 155 / 56 - 104 cm??? LV Systolic Volume MOD BP 25.5 cm??? 22 - 58 / 19 - 49 cm??? LV Ejection Fraction MOD BP 50.6 % >= 55 % LV Cardiac Index MOD BP 501.3 cm???/min???m??? LV Diastolic Volume MOD 4C 66.6 cm??? LV Systolic Volume MOD 4C 41.3 cm??? LV Ejection Fraction MOD 4C 38.0 % LV Cardiac Index MOD 4C 484.9 cm???/min???m??? LV Diastolic Length 4C 6.8 cm LV Systolic Length 4C 6.7 cm LV Diastolic Volume MOD 2C 34.4 cm??? LV Systolic Volume MOD 2C 12.2 cm??? LV Ejection Fraction MOD 2C 64.6 % LV Cardiac Index MOD 2C 426.1 cm???/min???m??? LV Diastolic Length 2C 5.8 cm LV Systolic Length 2C 5.1 cm LA Volume 62.1 cm??? 18 - 58 / 22 - 52 cm??? LA Volume Index 29.8 cm???/m??? 16 - 28 cm???/m??? Ascending Aorta Diameter 3.5 cm DOPPLER AV Peak Velocity 285.2 cm/s AV Peak Gradient 32.5 mmHg AV Mean Velocity 228.2 cm/s AV Mean Gradient 22.2 mmHg AV Velocity Time Integral 74.7 cm LVOT Peak Velocity 126.2 cm/s LVOT Peak Gradient 6.4 mmHg LVOT Velocity Time Integral 34.0 cm LVOT Stroke Volume 110.0 cm??? LVOT Stroke Volume Index 56.5 ml/m??? LVOT Cardiac Index 2109.8 cm???/min???m??? AV Area Cont Eq vti 1.5 cm??? AV Area Cont Eq pk 1.4 cm??? MV Peak Velocity 164.4 cm/s MV Peak Gradient 10.8 mmHg MV Mean Velocity 86.8 cm/s MV Mean Gradient 3.8 mmHg MV Velocity Time Integral 61.8 cm MR Peak Velocity 358.2 cm/s MR Peak Gradient 51.3 mmHg Mitral E Point Velocity 144.7 cm/s Mitral A Point Velocity 146.6 cm/s Mitral E to A Ratio 1.0 MV Deceleration Time 312.0 ms MV E' Velocity 7.6 cm/s Mitral E to MV E' Ratio 18.9 TR Peak Velocity 241.6 cm/s TR Peak Gradient 23.4 mmHg Right Ventricular Systolic Press 28.4 mmHg PV Peak Velocity 143.2 cm/s PV Peak Gradient 8.2 mmHg FINDINGS Left Ventricle Normal LV size and wall thickness. Left ventricular ejection fraction is estimated at 55 %-60%. Normal global LV systolic function. No obvious regional wall motion abnormality. Right Ventricle Normal right ventricular size. Right Atrium Normal right atrial size. Left Atrium Mildly increased left atrial volume. Mildly increased left atrial area. LA volume index= 32ml/m2 Mitral Valve Moderate mitral annular calcification. MV area by VTI= 1.6cm2. Mild MR. Aortic Valve Aortic valve not well visualized. At least mild AV calcification. No aortic valve stenosis or regurgitation. Tricuspid Valve Tricuspid valve not well visualized. Pulmonic Valve Pulmonic valve not well visualized. No pulmonic regurgitation. Pericardium Prominent epicardial fat Aorta Normal size aortic root. CONCLUSIONS Left ventricular ejection fraction is estimated at 55 %. Normal global LV systolic function. No obvious regional wall motion abnormality. Polyvalvular calcification No pericardial effusion.Prominent epicardial fat Previewed by: Dr Shay Darling (Electronically Signed) Final Date: 30 May 2023 12:04
[2023-05-30] MEDS: amLODIPine 5 MG TAB PO SCH (12:20)
--- NOTE | 2023-05-30 13:21 | P.PN ---
Subjective History of present illness: This is a 67 year old female with no previous cardiac history, does not follow with a urologic surgeon. She has a past medical history of diabetes, hypertension, hyperlipidemia. She denies any history of lung problems are COPD. Patient states that she developed a breathing issue that started on Saturday especially when she lays down. On Saturday she noticed that she was feeling lightheaded and has not had that feeling before. She saw her primary care physician on Saturday and was instructed to come in the hospital. She has never had this problem before. She denies any new medications. She denies history of heart failure or any arrhythmias. She states that she occasionally gets ankle swelling and is usually able to lay flat in bed. She has been started on IV Lasix and feels that she is better today and she has been urinating quite a bit. States that she is almost back to normal. Patient has been started on a heparin drip and IV Lasix. Telemetry shows heart rate in the 30s and 40s. Patient denies having stress test done in the past. EKG sinus rhythm second degree block most likely type II, possibly type I Chest x-ray: Cardiomegaly with pulmonary venous congestion without overt failure. CTA of the chest revealed no pulmonary embolism. Cardiomegaly with trace bilateral pleural effusions and pulmonary vascular prominence. Hepatic cirrhosis. Initial WBC 13.1 on 9.6, hemoglobin 13.7, platelet count 173. INR 1.2. D-dimer 0.79. Electrolytes and renal function unremarkable. Troponins 0.058, 0.052, 0.043 and 0.027. Home cardiac medications: aspirin 81 mg daily, Farxiga 10 mg daily, hydrochlor othiazide 25 mg daily, lovastatin 80 mg at bedtime, Toprol-XL 50 mg daily 05/30 Patient seen and examined. Patient states her breathing is somewhat better. Metoprolol has been held and heart rates mildly improved more in the 50s to 60s. No evidence of more significant higher degree AV block or third-degree AV block or significant pauses. Review Of Systems: At the time of my evaluation: Constitutional: No fever, no chills. No weakness, fatigue or lethargy. EENT: No headache. No dizziness. Lungs: No shortness of breath, cough, no sputum production. No wheezing. Cardiovascular: No chest pain, no lower extremity edema. No palpitations. No paroxysmal nocturnal dyspnea. No orthopnea. No lightheadedness or dizziness. No syncopal episodes. Abdominal: No abdominal pain. No nausea, vomiting. No diarrhea. No constipation. No bloody or tarry stools. Genitourinary: No dysuria.. No urinary retention. Musculoskeletal: No myalgias. No muscle weakness, no frequent falls. No back pain. No neck pain. Integumentary: No wounds. No rash. No unusual bruising. Neurologic: No aphasia. No facial droop. No change in mentation. No head injury. No headache. Physical examination: Gen: This is a 67 yo female VS: reviewed HEENT: Head is atraumatic, normocephalic. Pupils equal, round. Sclerae is anicteric. NECK: Supple. No JVD. . LUNGS: Clear to auscultation. No wheezes or rhonchi. No intercostal retractions. HEART: Regular rate and rhythm. No murmur. ABDOMEN: Soft No tenderness. EXTREMITIES: No pedal edema. No calf tenderness. NEUROLOGICAL: Patient is awake, alert and oriented x3. Assessment: Acute heart failure with preserved EF Second-degree heart block likely type II, possible type I Elevated troponins, rule out non-ST PR Hypertension Hyperlipidemia Diabetes Plan: Discontinue beta adalid Continue IV Lasix Monitor I&O, daily weights, electrolytes and renal function Patient feeling better and much of her symptoms appear related to heart failure however does have mildly elevated troponins, coronary artery calcifications noted on CT and multiple risk factors. Unable to perform Lexiscan stress test secondary to concern of high degree AV block. Septation up for heart catheterization tomorrow for definitive diagnosis. Likely if no significant obstructive disease, DC tomorrow. Objective - Vital Signs Vital signs: Vital Signs Temp 97.4 F L 05/30/23 08:00 Pulse 57 L 05/30/23 08:00 Resp 17 05/30/23 08:00 BP 159/65 05/30/23 08:00 Pulse Ox 100 05/30/23 12:27 FiO2 Intake & Output 05/29/23 05/30/23 05/30/23 18:59 06:59 18:59 Intake Total 790 78.494 Output Total 900 800 Balance -110 -721.506 Weight 92.1 kg Intake: Intake, IV Titration 250 78.494 Amount Heparin Sod,Pork in 0.45% 250 78.494 NaCl 25,000 unit In 0.45 % NaCl 1 250ml.bag @ 12 UNITS/KG/HR 11.376 mls/hr IV .[id number] [facility] Rx#: [id number] Oral 540 Output: Urine 900 800 Other: Voiding Method Toilet Toilet Toilet # Voids 1 2 # Bowel Movements 1 1 - Labs CBC & Chem 7: 05/30/23 02:27 05/30/23 02:27 Labs: Abnormal Lab Results - Last 24 Hours (Table) 05/29/23 05/29/23 05/29/23 Range/Units 16:07 18:09 20:22 WBC (3.8-10.6) k/uL APTT 35.6 H (22.0-30.0) sec BUN (7-17) mg/dL Glucose (74-99) mg/dL POC Glucose (mg/dL) 142 H 133 H (70-110) mg/dL Hemoglobin A1c (<=6.0) % C-Reactive Protein (<1.0) mg/dL 05/30/23 05/30/23 05/30/23 Range/Units 02:27 02:27 02:27 WBC 11.7 H (3.8-10.6) k/uL APTT (22.0-30.0) sec BUN 32 H (7-17) mg/dL Glucose 60 L (74-99) mg/dL POC Glucose (mg/dL) (70-110) mg/dL Hemoglobin A1c 8.6 H (<=6.0) % C-Reactive Protein 8.4 H (<1.0) mg/dL 05/30/23 05/30/23 05/30/23 Range/Units 02: 07:02 11:20 WBC (3.8-10.6) k/uL APTT 41.1 H (22.0-30.0) sec BUN (7-17) mg/dL Glucose (74-99) mg/dL POC Glucose (mg/dL) 124 H 137 H (70-110) mg/dL Hemoglobin A1c (<=6.0) % C-Reactive Protein (<1.0) mg/dL
[2023-05-30 16:30] LABS: Glucose,Whole Blood 135 mg/dL (70-110)
[2023-05-30 20:44] LABS: Glucose,Whole Blood 183 mg/dL (70-110)
[2023-05-30] MEDS: ATORVASTATIN 40 MG TAB PO SCH (21:02)
[2023-05-30] MEDS: INSULIN DETEMIR (LEVEMIR) 100 UNIT/ML SYR SQ SCH (21:02)
[2023-05-30] MEDS: ACETAMINOPHEN TAB 325 MG TAB PO PRN (22:18)
[2023-05-31] MEDS: INSULIN ASPART (NovoLOG) 100 UNIT/ML VIAL SQ SCH ×8 (05:39→20:10)
[2023-05-31] MEDS: metFORMIN 500 MG TAB PO SCH ×2 (05:40→15:05)
[2023-05-31 05:47] LABS: Glucose,Whole Blood 104 mg/dL (70-110)
[2023-05-31] MEDS: FUROSEMIDE 10 MG/ML 4 ML VIAL IV SCH ×2 (06:15→17:40)
[2023-05-31] MEDS: ACETAMINOPHEN TAB 325 MG TAB PO PRN ×2 (06:15→22:05)
[2023-05-31] MEDS ORDERED: HEPARIN SODIUM,PORCINE 10,000 UNIT in SODIUM CHLORIDE 0.9% 1,000 ML IRRIGATION PRN (07:00)
[2023-05-31] MEDS ORDERED: HEPARIN SODIUM,PORCINE (1 ML) 2,500 UNIT in SODIUM CHLORIDE 0.9% 250 ML IRRIGATION PRN (07:00)
[2023-05-31] MEDS ORDERED: ASPIRIN 325 MG TAB PO STA (07:32)
[2023-05-31] MEDS: ASPIRIN 81 MG PO SCH (07:33)
[2023-05-31] MEDS ORDERED: ATORVASTATIN 80 MG TAB PO STA (07:48)
[2023-05-31 08:12] LABS: HGB 15.3 gm/dL (11.4-16.0); MCH 29.4 pg (25.0-35.0); MCHC 32.4 g/dL (31.0-37.0); MCV 90.6 fL (80.0-100.0); Mean Platelet Volume 9.6; Platelet Count 205 k/uL (150-450); RBC 5.19 m/uL (3.80-5.40); RDW 14.7 % (11.5-15.5); WBC 7.4 k/uL (3.8-10.6)
[2023-05-31 08:42] LABS: African American GFR (CKD) >90 (>60 ml/min/1.73 sqM); Anion Gap 12 mmol/L; Blood Urea Nitrogen 25 mg/dL (7-17); Calcium 9.7 mg/dL (8.4-10.2); Carbon Dioxide 31 mmol/L (22-30); Chloride 98 mmol/L (98-107); Glucose 116 mg/dL (74-99); Non-African American GFR(CKD) >90 (>60 ml/min/1.73 sqM); Potassium 4.6 mmol/L (3.5-5.1); Sodium 141 mmol/L (137-145)
[2023-05-31] MEDS: amLODIPine 5 MG TAB PO SCH (09:09)
[2023-05-31] MEDS: DAPAGLIFLOZIN PROPANEDIOL 10 MG TABLET PO SCH (09:09)
[2023-05-31] MEDS: PARoxetine 20 MG TAB PO SCH (09:10)
--- NOTE | 2023-05-31 11:13 | P.PN ---
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 She has a past medical history of diabetes, hypertension, hyperlipidemia. She denies any history of lung problems are COPD. Patient states that she developed a breathing issue that started on Saturday especially when she lays down. On Saturday she noticed that she was feeling lightheaded and has not had that feeling before. She saw her primary care physician on Saturday and was instructed to come in the hospital. She has never had this problem before. She denies any new medications. She denies history of heart failure or any arrhythmias. She states that she occasionally gets ankle swelling and is usually able to lay flat in bed. She has been started on IV Lasix and feels that she is better today and she has been urinating quite a bit. States that she is almost back to normal. Patient has been started on a heparin drip and IV Lasix. Telemetry shows heart rate in the 30s and 40s. Patient denies having stress test done in the past. EKG sinus rhythm second degree block most likely type II, possibly type I Chest x-ray: Cardiomegaly with pulmonary venous congestion without overt failure. CTA of the chest revealed no pulmonary embolism. Cardiomegaly with trace bilateral pleural effusions and pulmonary vascular prominence. Hepatic cirrhosis. Initial WBC 13.1 on 9.6, hemoglobin 13.7, platelet count 173. INR 1.2. D-dimer 0.79. Electrolytes and renal function unremarkable. Troponins 0.058, 0.052, 0.043 and 0.027. Home cardiac medications: aspirin 81 mg daily, Farxiga 10 mg daily, hydrochlorothiazide 25 mg daily, lovastatin 80 mg at bedtime, Toprol-XL 50 mg daily 05/30 Patient seen and examined. Patient states her breathing is somewhat better. Metoprolol has been held and heart rates mildly improved more in the 50s to 60s. No evidence of more significant higher degree AV block or third-degree AV block or significant pauses. 05/31 Patient is scheduled for cardiac catheterization today. No chest pain or shortness of breath. Heart rate has been running in the 50s and 60s while off beta adalid. Blood pressure 144/69 and she is been started on amlodipine. Pulse ox 90% on room air. Repeat blood work reveals BUN 25 creatinine 0.56. Patient has been continued on IV Lasix 40 mg every 12 hours. Patient is in negative balance of 831 mL cyst. Weight is down 1 kg from yesterday. Echocardiogram reveals EF of 55%, no obvious regional wall motion abnormality, probably valvular calcification, no pericardial effusion. Physical examination: Gen: This is a 67 yo female resting on the edge of the bed and appears to be in no acute distress. VS: reviewed HEENT: Head is atraumatic, normocephalic. Pupils equal, round. Sclerae is anicteric. NECK: Supple. No JVD. LUNGS: Clear to auscultation. No wheezes or rhonchi. No intercostal ret ractions. HEART: Regular rate and rhythm. No murmur. ABDOMEN: Soft No tenderness. EXTREMITIES: No pedal edema. No calf tenderness. NEUROLOGICAL: Patient is awake, alert and oriented x3. Assessment: Acute heart failure with preserved EF Second-degree heart block likely type II, possible type I Acute non-ST [place] Hypertension Hyperlipidemia Diabetes Plan: Continue to hold beta adalid Continue IV Lasix Monitor I&O, daily weights, electrolytes and renal function Cardiac catheterization today with Dr. Taylor. If no significant obstructive disease, DC home later today. Nurse practitioner note has been reviewed, I agree with the documented findings and plan of care. Patient was seen and examined. Objective - Vital Signs Vital signs: Vital Signs Temp 98.1 F 05/31/23 08:15 Pulse 60 05/31/23 09:36 Resp 16 05/31/23 09:36 BP 144/69 05/31/23 08:15 Pulse Ox 98 05/31/23 08:29 FiO2 21 05/31/23 08:29 Intake & Output 05/30/23 05/31/23 05/31/23 18:59 06:59 18:59 Intake Total 240 Balance 240 Weight 91.2 kg Intake: Oral 240 Other: Voiding Method Toilet Toilet Toilet # Voids 1 3 1 # Bowel Movements 1 - Labs CBC & Chem 7: 05/31/23 07:47 05/31/23 07:47 Labs: Abnormal Lab Results - Last 24 Hours (Table) 05/30/23 05/30/23 05/30/23 Range/Units 11:20 15:33 16:27 Hct (34.0-46.0) % APTT 47.1 H (22.0-30.0) sec Carbon Dioxide (22-30) mmol/L BUN (7-17) mg/dL Glucose (74-99) mg/dL POC Glucose (mg/dL) 137 H 135 H (70-110) mg/dL 05/30/23 05/31/23 05/31/23 Range/Units 20:43 07:47 07:47 Hct 47.0 H (34.0-46.0) % APTT 55.3 H (22.0-30.0) sec Carbon Dioxide (22-30) mmol/L BUN (7-17) mg/dL Glucose (74-99) mg/dL POC Glucose (mg/dL) 183 H (70-110) mg/dL 05/31/23 Range/Units 07:47 Hct (34.0-46.0) % APTT (22.0-30.0) sec Carbon Dioxide 31 H (22-30) mmol/L BUN 25 H (7-17) mg/dL Glucose 116 H (74-99) mg/dL POC Glucose (mg/dL) (70-110) mg/dL
[2023-05-31] MEDS ORDERED: VERAPAMIL 2.5 MG/ML 2 ML AMP ONE (12:11)
[2023-05-31] MEDS ORDERED: HEPARIN SODIUM 1,000 UN/ML (10ML VL) ONE (12:11)
[2023-05-31] MEDS ORDERED: fentaNYL (PF) 50 MCG/ML 2 ML AMP ONE (12:11)
[2023-05-31] MEDS ORDERED: IV FLUID CONTINUATION 1,000 ML IV ONE (12:30)
[2023-05-31] MEDS ORDERED: MIDAZOLAM 2 MG/2 ML VIAL IVP ONE (12:35)
[2023-05-31] MEDS ORDERED: fentaNYL (PF) 50 MCG/ML 2 ML AMP IVP ONE (12:35)
[2023-05-31] MEDS ORDERED: LIDOCAINE 1% INJ 10MG/ML (20 ML MDV) SQ ONE (12:39)
[2023-05-31] MEDS ORDERED: VERAPAMIL SYRINGE (5 MG/10 ML) INTRAARTER ONE (12:40)
[2023-05-31] MEDS ORDERED: HEPARIN SODIUM 1,000 UN/ML (10ML VL) IV ONE (12:42)
[2023-05-31] MEDS ORDERED: IOPAMIDOL-370 100ML BTL INJ ONE ×2 (13:12)
--- NOTE | 2023-05-31 13:17 | P.CARDCATH ---
Description of Procedure: PROCEDURES PERFORMED: Left heart catheterization, bilateral coronary angiography, ultrasound guided arterial access INDICATION: Non-STEMI CONSENT:I have discussed the risks, benefits and alternative therapies for the above-mentioned procedure and for both sedation/analgesia as well as necessary blood product administration, if indicated, as they pertain to this patient. The patient has indicated understanding and acceptance of the risks and procedures discussed. PROCEDURE: After the risks, benefits and alternatives of the above mentioned procedure explained in detail with the patient, informed consent was obtained. Patient was taken to the catheterization lab and prepped and draped in usual fashion. Ultrasound guidance was used to assess for arterial access. 1% lidocaine was used to anesthetize the right radial artery. A 6-Citizen [place] sheath was placed in the right radial artery using modified Seldinger technique and ul trasound guidance. Left coronary angiography was performed with a 5-Citizen [place] JL 3.5 catheter. Right coronary angiography was extremely difficult with dilated aortic root and aortic stenosis jet prohibiting proper placement of F45, AR 2, AL-1. Additionally noted to be anterior takeoff and difficult to engage and therefore is 0.014 BMW wire was advanced into the proximal portion and guideline or used to extend and shoots right coronary angiography in multiple views.. A 5-Citizen [place] FR5 catheter was inserted into the left ventricle and pressure measurements were obtained. The right radial sheath was removed and a TR band was placed with hemostasis achieved. The patient tolerated the procedure well. Patient was transported back to the post catheterization holding area in stable condition. Conscious Sedation: Patient was monitored under the direct supervision of myself for conscious sedation using Versed and fentanyl for a total duration of 36 minutes HEMODYNAMICS: Aorta: 143/82 LV: 197/2, LVEDP 21, peak to peak gradient of 32 and mean gradient of 30 mmHg SELECTIVE CORONARY ARTERIOGRAPHY: LEFT MAIN: The left main is a large caliber vessel which bifurcates into the LAD and circumflex. There is no significant stenosis. LEFT ANTERIOR DESCENDING CORONARY ARTERY: LAD is a large caliber vessel which wraps around to the apex. There is mild mid to distal 20-30% stenosis and otherwise normal. LEFT CIRCUMFLEX CORONARY ARTERY: Left circumflex is a moderate caliber vessel without significant stenosis. RIGHT CORONARY ARTERY: The right coronary artery is a large caliber vessel which gives off a PDA and PLV branch and is the dominant vessel. There is no significant stenosis. FINAL IMPRESSION: 1. Relatively normal coronary arteries other than mild mid to distal LAD 20-30% stenosis 2. Mildly elevated left sided filling pressures 3. Moderate aortic stenosis with mean gradient 30 mmHg PLAN: 1. Aggressive risk factor modification per most recent ACC/AHA guidelines. 2. Follow-up in the office in 1-2 weeks.
[2023-05-31] MEDS: HEPARIN SOD,PORK IN 0.45% NACL 25,000 UNIT in 0.45% NACL 1 250ML.BAG IV SCH (13:47)
--- NOTE | 2023-05-31 14:15 | P.PN ---
Subjective Progress Note Date: 05/31/23 67-year-old lady with past medical history of diabetes mellitus, hypertension, hyperlipidemia presents to the emergency department with difficulty in breathing. Patient had symptom onset for 72 hours prior to presentation. Patient is unable to lay down and also complained of exertional shortness of breath. Patient states she had nasal congestion for 3 weeks. She denies associated fever, chills, cough. * Workup initiated in ER showed CBC which showed WBC of 13.1 hemoglobin of 14.2 platelet count of 184. INR is 1.1, d-dimer 0.79 * Serum chemistry shows sodium 136 potassium 4.2 carbon dioxide 20 to be and 26 creatinine 0.57 blood glucose 228 * Troponin 0.043, N-terminal proBNP 5810 * Chest x-ray shows evidence of cardiomegaly with pulmonary venous congestion * CT chest negative for pulmonary embolism cardiomegaly with pleural effusion * Patient had elevated troponin and serial troponins ordered, EKG obtained showed irregular rhythm with atrial fibrillation * Patient started on heparin drip with consultation from cardiology * 05/30/23: Patient seen and evaluated bedside, patient's her breathing has improved, on oxygen through nasal cannula, patient on 2 L of oxygen, noted to have bradycardia however asymptomatic. Serum chemistry within normal limits. HbA1c 8.6 CRP elevated N-terminal proBNP elevated. Continue patient on heparin drip, 05/31. Patient seen and examined. Currently nothing by mouth going for cardiac cath today. Lab work done this morning WBC 7.4, hemoglobin 15.3, platel et count 205. REVIEW OF SYSTEMS: CONSTITUTIONAL: No fever, no malaise,. CARDIOVASCULAR: No chest pain, no palpitations, no syncope. PULMONARY: No shortness of breath, no cough, GASTROINTESTINAL: No diarrhea, no nausea, no vomiting, no abdominal pain. NEUROLOGICAL: No headaches, no weakness, PHYSICAL EXAMINATION: GENERAL: The patient is alert and oriented x3, not in any acute distress. Well developed, well nourished. HEENT: Pupils are round and equally reacting to light. EOMI. No scleral icterus. No conjunctival pallor. Normocephalic, atraumatic. No pharyngeal erythema. No thyromegaly. CARDIOVASCULAR: S1 and S2 present. No murmurs, rubs, or gallops. PULMONARY: Chest is clear to auscultation, no wheezing or crackles. ABDOMEN: Soft, nontender, nondistended, normoactive bowel sounds. No palpable organomegaly. MUSCULOSKELETAL: No joint swelling or deformity. EXTREMITIES: No cyanosis, clubbing, or pedal edema. NEUROLOGICAL: Gross neurological examination did not reveal any focal deficits. SKIN: No rashes. Assessment and plan Acute heart failure with preserved EF Second-degree heart block likely type II, possible type I Elevated troponins, rule out non-ST [place] Diabetes mellitus type 2 Hypertension Hyperlipidemia * In regards to acute congestive heart failure , continue IV Lasix, started and O's, daily weights, cardiology following * Regards to second degree heart block, hold beta blockers * In regards to elevated troponin, continue aspirin, Lipitor, IV heparin, nothing by mouth for cardiac cath today * In regards to diabetes mellitus Accu-Cheks before meals at bedtime continue patient on correctional insulin monitor for hypoglycemia * In regards to hypertension , metoprolol discontinued secondary to bradycardia, continue amlodipine * In regards to new onset atrial fibrillation, continue telemetry monitoring will appreciate input from cardiology continue patient on IV heparin * Labs and medication were reviewed.. Continue same treatment. Continue with symptomatic treatment. Resume home medication. Monitor labs and vitals. DVT and GI prophylaxis. Further recommendations as per clinical course of the patient Dictation was produced using [employer] dictation software. please excuse any grammatical, word or spelling errors. Objective - Vital Signs Vital signs: Vital Signs Temp 98.1 F 05/31/23 08:15 Pulse 60 05/31/23 09:36 Resp 16 05/31/23 09:36 BP 144/69 05/31/23 08:15 Pulse Ox 98 05/31/23 08:29 FiO2 21 05/31/23 08:29 Intake & Output 05/30/23 05/31/23 05/31/23 18:59 06:59 18:59 Intake Total 240 Balance 240 Weight 91.2 kg Intake: Oral 240 Other: Voiding Method Toilet Toilet Toilet # Voids 1 3 1 # Bowel Movements 1 - Labs CBC & Chem 7: 05/31/23 07:47 05/31/23 07:47 Labs: Abnormal Lab Results - Last 24 Hours (Table) 05/30/23 05/30/23 05/30/23 Range/Units 15:33 16:27 20:43 Hct (34.0-46.0) % APTT 47.1 H (22.0-30.0) sec Carbon Dioxide (22-30) mmol/L BUN (7-17) mg/dL Glucose (74-99) mg/dL POC Glucose (mg/dL) 135 H 183 H (70-110) mg/dL 05/31/23 05/31/23 05/31/23 Range/Units 07:47 07:47 07:47 Hct 47.0 H (34.0-46.0) % APTT 55.3 H (22.0-30.0) sec Carbon Dioxide 31 H (22-30) mmol/L BUN 25 H (7-17) mg/dL Glucose 116 H (74-99) mg/dL POC Glucose (mg/dL) (70-110) mg/dL
[2023-05-31 14:20] LABS: Glucose,Whole Blood 155 mg/dL (70-110)
[2023-05-31 16:30] LABS: Glucose,Whole Blood 134 mg/dL (70-110)
[2023-05-31 19:33] LABS: Glucose,Whole Blood 153 mg/dL (70-110)
[2023-05-31] MEDS: ATORVASTATIN 40 MG TAB PO SCH (20:10)
[2023-05-31] MEDS: INSULIN DETEMIR (LEVEMIR) 100 UNIT/ML SYR SQ SCH (20:10)
[2023-06-01 05:59] LABS: Glucose,Whole Blood 201 mg/dL (70-110)
[2023-06-01] MEDS: INSULIN ASPART (NovoLOG) 100 UNIT/ML VIAL SQ SCH ×4 (06:34→12:18)
[2023-06-01] MEDS: FUROSEMIDE 10 MG/ML 4 ML VIAL IV SCH (06:34)
[2023-06-01] MEDS: HEPARIN SOD,PORK IN 0.45% NACL 25,000 UNIT in 0.45% NACL 1 250ML.BAG IV SCH (06:34)
[2023-06-01] MEDS: metFORMIN 500 MG TAB PO SCH (06:35)
[2023-06-01] MEDS: amLODIPine 5 MG TAB PO SCH (09:28)
[2023-06-01] MEDS: DAPAGLIFLOZIN PROPANEDIOL 10 MG TABLET PO SCH (09:28)
[2023-06-01] MEDS: PARoxetine 20 MG TAB PO SCH (09:28)
[2023-06-01] MEDS: ASPIRIN 81 MG PO SCH (09:28)
[2023-06-01 10:41] VITALS: RESP 17
[2023-06-01 11:53] LABS: Glucose,Whole Blood 163 mg/dL (70-110)
--- NOTE | 2023-06-01 12:03 | P.PN ---
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 She has a past medical history of diabetes, hypertension, hyperlipidemia. She denies any history of lung problems are COPD. Patient states that she developed a breathing issue that started on Saturday especially when she lays down. On Saturday she noticed that she was feeling lightheaded and has not had that feeling before. She saw her primary care physician on Saturday and was instructed to come in the hospital. She has never had this problem before. She denies any new medications. She denies history of heart failure or any arrhythmias. She states that she occasionally gets ankle swelling and is usually able to lay flat in bed. She has been started on IV Lasix and feels that she is better today and she has been urinating quite a bit. States that she is almost back to normal. Patient has been started on a heparin drip and IV Lasix. Telemetry shows heart rate in the 30s and 40s. Patient denies having stress test done in the past. EKG sinus rhythm second degree block most likely type II, possibly type I Chest x-ray: Cardiomegaly with pulmonary venous congestion without overt failure. CTA of the chest revealed no pulmonary embolism. Cardiomegaly with trace bilateral pleural effusions and pulmonary vascular prominence. Hepatic cirrhosis. Initial WBC 13.1 on 9.6, hemoglobin 13.7, platelet count 173. INR 1.2. D-dimer 0.79. Electrolytes and renal function unremarkable. Troponins 0.058, 0.052, 0.043 and 0.027. Home cardiac medications: aspirin 81 mg daily, Farxiga 10 mg daily, hydrochlorothiazide 25 mg daily, lovastatin 80 mg at bedtime, Toprol-XL 50 mg daily 05/30 Patient seen and examined. Patient states her breathing is somewhat better. Metoprolol has been held and heart rates mildly improved more in the 50s to 60s. No evidence of more significant higher degree AV block or third-degree AV block or significant pauses. 05/31 Patient is scheduled for cardiac catheterization today. No chest pain or shortness of breath. Heart rate has been running in the 50s and 60s while off beta adalid. Blood pressure 144/69 and she is been started on amlodipine. Pulse ox 90% on room air. Repeat blood work reveals BUN 25 creatinine 0.56. Patient has been continued on IV Lasix 40 mg every 12 hours. Patient is in negative balance of 831 mL cyst. Weight is down 1 kg from yesterday. Echocardiogram reveals EF of 55%, no obvious regional wall motion abnormality, probably valvular calcification, no pericardial effusion. 06/01 EKG G reviewed which revealed sinus with PACs. No need for pacemaker at this time. Patient states that she feels great. She has been urinating a lot. Yesterday, patient underwent LHC with Dr. Taylor that revealed relatively normal coronary arteries with mild mid to distal LAD 20-30% stenosis, mildly el evated left sided filling pressures, moderate aortic stenosis with mean gradient 30 mmHg. Plan for aggressive risk factor modification and follow-up in the office in 1-2 weeks. Physical examination: Gen: This is a 67 yo female resting on the edge of the bed and appears to be in no acute distress. VS: reviewed HEENT: Head is atraumatic, normocephalic. Pupils equal, round. Sclerae is anicteric. NECK: Supple. No JVD. LUNGS: Clear to auscultation. No wheezes or rhonchi. No intercostal retracti ons. HEART: Regular rate and rhythm. No murmur. ABDOMEN: Soft No tenderness. EXTREMITIES: No pedal edema. No calf tenderness. NEUROLOGICAL: Patient is awake, alert and oriented x3. Assessment: Acute heart failure with preserved EF Second-degree heart block likely type II, possible type I Acute non-ST [place] Hypertension Hyperlipidemia Diabetes Moderate aortic stenosis Plan: Continue to hold beta adalid IV Lasix may be discontinued and patient resumed back on hydrochlorothiazide Patient is cleared for discharge from cardiology and may follow-up in the office with Dr. Taylor in 1-2 weeks. Nurse practitioner note has been reviewed, I agree with the documented findings and plan of care. Patient was seen and examined. Objective - Vital Signs Vital signs: Vital Signs Temp 98.3 F 06/01/23 08:15 Pulse 55 L 06/01/23 08:15 Resp 17 06/01/23 08:15 BP 122/52 06/01/23 08:15 Pulse Ox 98 06/01/23 08:15 FiO2 21 05/31/23 08:29 Intake & Output 05/31/23 06/01/23 06/01/23 18:59 06:59 18:59 Intake Total 221.506 118 Balance 221.506 118 Weight 91.4 kg Intake: IV 50 Intake, IV Titration 171.506 Amount Heparin Sod,Pork in 0.45% 171.506 NaCl 25,000 unit In 0.45 % NaCl 1 250ml.bag @ 12 UNITS/KG/HR 11.376 mls/hr IV .[id number] [facility] Rx#: [id number] Oral 118 Other: Voiding Method Toilet Toilet Toilet # Voids 1 - Labs CBC & Chem 7: 05/31/23 07:47 05/31/23 07:47 Labs: Abnormal Lab Results - Last 24 Hours (Table) 05/31/23 05/31/23 05/31/23 Range/Units 14:18 16:28 19:31 POC Glucose (mg/dL) 155 H 134 H 153 H (70-110) mg/dL 06/01/23 Range/Units 05:57 POC Glucose (mg/dL) 201 H (70-110) mg/dL
[2023-06-01 12:15] VITALS: BP 136/74; PULSE 71; TEMP 97.7
--- NOTE | 2023-06-01 12:59 | P.DS ---
Providers Date of admission: 05/28/23 16:17 Expected date of discharge: 06/01/23 Attending physician: Rona Melgoza Consults: 05/28/23 15:39 Consult Physician Routine Consulting Provider: Varun Taylor Consult Reason/Comments: CHF, abnormal EKG Do you want consulting provider notified?: Yes Primary care physician: Tomasz [facility] Course: Discharge diagnoses; Acute heart failure with preserved EF Second-degree heart block likely type II, possible type I Elevated troponins, rule out non-ST [place] Diabetes mellitus type 2 Hypertension Hyperlipidemia Hospital course; 67-year-old lady with past medical history of diabetes mellitus, hypertension, hyperlipidemia presents to the emergency department with difficulty in breathing. Patient had symptom onset for 72 hours prior to presentation. Patient is unable to lay down and also complained of exertional shortness of breath. Patient states she had nasal congestion for 3 weeks. She denies associated fever, chills, cough. * Workup initiated in ER showed CBC which showed WBC of 13.1 hemoglobin of 14.2 platelet count of 184. INR is 1.1, d-dimer 0.79 * Serum chemistry shows sodium 136 potassium 4.2 carbon dioxide 20 to be and 26 creatinine 0.57 blood glucose 228 * Troponin 0.043, N-terminal proBNP 5810 * Chest x-ray shows evidence of cardiomegaly with pulmonary venous congestion * CT chest negative for pulmonary embolism cardiomegaly with pleural effusion * Patient had elevated troponin and serial troponins ordered, EKG obtained showed irregular rhythm with atrial fibrillation * Patient started on heparin drip with consultation from cardiology * 05/30/23: Patient seen and evaluated bedside, patient's her breathing has improved, on oxygen through nasal cannula, patient on 2 L of oxygen, noted to have bradycardia however asymptomatic. Serum chemistry within normal limits. HbA1c 8.6 CRP elevated N-terminal proBNP elevated. Continue patient on heparin drip, 05/31. Patient seen and examined. Currently nothing by mouth going for cardiac cath today. Lab work done this morning WBC 7.4, hemoglobin 15.3, platelet count 205. 06/01. Patient seen and examined. Cardiac cath done showed normal coronary arteries with mild mid to distal LAD 20-30% stenosis, mildly elevated left sided filling pressures, moderate aortic stenosis with mean gradient 30 mmHg. Plan for aggressive risk factor modification and outpatient follow-up with cardiology. Cardiology recommended discontinuing Lasix and resuming HCTZ at discharge. Continue to hold beta blockers PHYSICAL EXAMINATION: GENERAL: The patient is alert and oriented x3, not in any acute distress. Well developed, well nourished. HEENT: Pupils are round and equally reacting to light. EOMI. No scleral icterus. No conjunctival pallor. Normocephalic, atraumatic. No pharyngeal erythema. No thyromegaly. CARDIOVASCULAR: S1 and S2 present. No murmurs, rubs, or gallops. PULMONARY: Chest is clear to auscultation, no wheezing or crackles. ABDOMEN: Soft, nontender, nondistended, normoactive bowel sounds. No palpable organomegaly. MUSCULOSKELETAL: No joint swelling or deformity. EXTREMITIES: No cyanosis, clubbing, or pedal edema. NEUROLOGICAL: Gross neurological examination did not reveal any focal deficits. SKIN: No rashes. Dictation was produced using [employer] dictation software. please excuse any grammatical, word or spelling errors. Patient Condition at Discharge: Fair Plan - Discharge Summary Discharge Rx Participant: Yes New Discharge Prescriptions: New amLODIPine [Norvasc] 5 mg PO DAILY 30 Days #30 tab Continue metFORMIN HCL [Glucophage] 1,000 mg PO BID Insulin Degludec [Tresiba Flextouch U-200 Pen] 140 units SQ HS INSULIN ASPART (NovoLOG) [NovoLOG (formulary)] 20 unit SQ ACHS Dapagliflozin Propanediol [Farxiga] 10 mg PO DAILY Aspirin EC [Ecotrin Low Dose] 81 mg PO DAILY PARoxetine HCL [Paxil] 20 mg PO DAILY hydroCHLOROthiazide [Hydrodiuril] 25 mg PO DAILY Liraglutide [Victoza 3-Luca] 1.8 mg SQ DAILY Lovastatin [Mevacor] 80 mg PO HS Discontinued Metoprolol Succinate [Toprol XL] 50 mg PO DAILY Discharge Medication List Aspirin EC [Ecotrin Low Dose] 81 mg PO DAILY 05/28/23 [History] Dapagliflozin Propanediol [Farxiga] 10 mg PO DAILY 05/28/23 [History] INSULIN ASPART (NovoLOG) [NovoLOG (formulary)] 20 unit SQ ACHS 05/28/23 [History] Insulin Degludec [Tresiba Flextouch U-200 Pen] 140 units SQ HS 05/28/23 [History] Liraglutide [Victoza 3-Luca] 1.8 mg SQ DAILY 05/28/23 [History] Lovastatin [Mevacor] 80 mg PO HS 05/28/23 [History] PARoxetine HCL [Paxil] 20 mg PO DAILY 05/28/23 [History] hydroCHLOROthiazide [Hydrodiuril] 25 mg PO DAILY 05/28/23 [History] metFORMIN HCL [Glucophage] 1,000 mg PO BID 05/28/23 [History] amLODIPine [Norvasc] 5 mg PO DAILY 30 Days #30 tab 06/01/23 [Rx] Follow up Appointment(s)/Referral(s): Varun Taylor DO [STAFF PHYSICIAN] - 2 Weeks Tomasz Singh DO [Primary Care Provider] - 1-2 days Patient Instructions/Handouts: Heart Failure (DC), After Radial Heart Catheterization (GEN) Activity/Diet/Wound Care/Special Instructions: hold metformin for another 24 hours Discharge Disposition: HOME SELF-CARE
== END 2023-06-01 14:02 | disposition home or self-care (01) | DRG 280 ==
LOC: EC 12:13 → 3SCARD 16:17
PROVIDERS: ADMIT Hospitalist; ATTEND Hospitalist
PROC: 4A023N7 Measurement of Cardiac Sampling and Pressure, Left Heart, Percutaneous Approach (ICD-10-PCS; principal; 2023-05-31 07:30)
PROC: B2111ZZ Fluoroscopy of Multiple Coronary Arteries using Low Osmolar Contrast (ICD-10-PCS; principal; 2023-05-31 07:30)
DX: I21.4 Non-ST elevation (NSTEMI) myocardial infarction (principal); I50.31 Acute diastolic (congestive) heart failure; I25.10 Atherosclerotic heart disease of native coronary artery without angina pectoris; E78.5 Hyperlipidemia, unspecified; I44.1 Atrioventricular block, second degree; I48.91 Unspecified atrial fibrillation; E11.9 Type 2 diabetes mellitus without complications; Z20.822 Contact with and (suspected) exposure to COVID-19; Z79.01 Long term (current) use of anticoagulants; I11.0 Hypertensive heart disease with heart failure; I35.0 Nonrheumatic aortic (valve) stenosis; K74.60 Unspecified cirrhosis of liver; Z79.82 Long term (current) use of aspirin; Z79.4 Long term (current) use of insulin; Z79.84 Long term (current) use of oral hypoglycemic drugs; Z79.899 Other long term (current) drug therapy; Z82.49 Family history of ischemic heart disease and other diseases of the circulatory system
CPT/HCPCS: 36415; 71046; 71275; 76937; 80048; 80053; 83036; 83735; 83880; 84484; 85025; 85027; 85379; 85610; 85730; 86140; 87635; 93005; 93306; 93458; 94760; 96361; 96374; 96375; 99291

== ENCOUNTER 2024-10-01 12:15 | Observation (INO) | payer MEDICARE ==
--- NOTE | 2024-10-01 12:32 | ED ---
Weakness HPI - General Source: patient, RN notes reviewed Mode of arrival: wheelchair Limitations: no limitations <Gilda Salas - Last Filed: 10/01/24 12:31> - General Source: patient, family, RN notes reviewed Mode of arrival: wheelchair Limitations: no limitations <Bryce Trevino - Last Filed: 10/01/24 17:57> - General Chief complaint: Weakness Stated complaint: Weakness Time Seen by Provider: 10/01/24 12:31 - History of Present Illness Initial comments: Quick note: 69-year-old female presented to the ER for evaluation of weakness. Patient states since Saturday her arms and legs have felt "weak". Patient states yesterday she tried to ambulate a short distance without her walker and accidentally fell as she lost her footing. She denies head injury or loss of consciousness. Patient states she has been extremely sweaty all night long. No known fevers. No chest pain or shortness of breath. (Gilda Salas) Patient is a 69-year-old female present to the emergency department with concern for general weakness. Onset of symptoms was a couple days ago. Patient did have a fall yesterday without injury. No head injury. No loss of consciousness. No syncope. Patient states she has weakness that is general, not isolated to any area. No confusion or speech problems. No history of similar symptoms previously. Patient has mild cough however that is chronic. (Bryce Trevino) - Related Data Home Medications Medication Instructions Recorded Confirmed Aspirin EC [Ecotrin Low Dose] 81 mg PO DAILY 05/28/23 05/28/23 Dapagliflozin Propanediol [Farxiga] 10 mg PO DAILY 05/28/23 05/28/23 INSULIN ASPART (NovoLOG) [NovoLOG 20 unit SQ [facility] 05/28/23 05/28/23 (formulary)] Insulin Degludec [Tresiba 140 units SQ HS 05/28/23 05/28/23 Flextouch U-200 Pen] Liraglutide [Victoza 3-Luca] 1.8 mg SQ DAILY 05/28/23 05/28/23 Lovastatin [Mevacor] 80 mg PO HS 05/28/23 05/28/23 PARoxetine HCL [Paxil] 20 mg PO DAILY 05/28/23 05/28/23 hydroCHLOROthiazide [Hydrodiuril] 25 mg PO DAILY 05/28/23 05/28/23 metFORMIN HCL [Glucophage] 1,000 mg PO BID 05/28/23 05/28/23 Previous Rx's Medication Instructions Recorded amLODIPine [Norvasc] 5 mg PO DAILY 30 Days #30 tab 06/01/23 Allergies Allergy/AdvReac Type Severity Reaction Status Date / Time No Known Allergies Allergy Verified 10/01/24 12:25 Review of Systems ROS Other: All systems not noted in ROS Statement are negative. <Gilda Salas - Last Filed: 10/01/24 12:31> ROS Other: All systems not noted in ROS Statement are negative. Constitutional: Denies: fever Eyes: Denies: eye pain Respiratory: Reports: as per HPI. Denies: dyspnea Cardiovascular: Denies: chest pain Endocrine: Reports: fatigue Gastrointestinal: Denies: abdominal pain Genitourinary: Denies: dysuria Musculoskeletal: Denies: back pain Skin: Denies: rash Neurological: Reports: as per HPI, weakness. Denies: headache, confusion <Bryce Trevino - Last Filed: 10/01/24 17:57> ROS Statement: Those systems with pertinent positive or pertinent negative responses have been documented in the HPI. Past Medical History Past Medical History: Diabetes Mellitus, Hyperlipidemia, Hypertension History of Any Multi-Drug Resistant Organisms: None Reported Past Surgical History: Cholecystectomy Past Anesthesia/Blood Transfusion Reactions: No Reported Reaction Past Psychological History: No Psychological Hx Reported Smoking Status: Never smoker Past Alcohol Use History: None Reported Past Drug Use History: None Reported - Past Family History Father Family Medical History: Congestive Heart Failure (CHF), Diabetes Mellitus Mother Family Medical History: Congestive Heart Failure (CHF), Diabetes Mellitus Son(s) Family Medical History: Diabetes Mellitus Sister(s) Family Medical History: Diabetes Mellitus <Gilda Salas - Last Filed: 10/01/24 12:31> General Exam Limitations: no limitations <Gilda Salas - Last Filed: 10/01/24 12:31> Limitations: no limitations General appearance: alert, in no apparent distress Head exam: Present: atraumatic Eye exam: Present: normal appearance, PERRL, EOMI Neck exam: Present: normal inspection Respiratory exam: Present: normal lung sounds bilaterally Cardiovascular Exam: Present: regular rate, normal rhythm, systolic murmur (Patient states chronic) GI/Abdominal exam: Present: soft. Absent: tenderness Extremities exam: Present: normal inspection. Absent: pedal edema, calf tenderness Neurological exam: Present: alert, oriented X3, CN II-XII intact. Absent: motor sensory deficit Expanded Neurological exam: Present: protecting the airway Speech: Present: fluid speech Cranial nerves: EOM's Intact: Normal Motor strength exam: RUE: 5, LUE: 5, RLE: 5, LLE: 5 Eye Response: (4) open spontaneously Motor Response: (6) obeys commands Verbal Response: (5) oriented Psychiatric exam: Present: normal affect, normal mood Skin exam: Present: normal color <Bryce Trevino - Last Filed: 10/01/24 17:57> - General Exam Comments Initial Comments: Visual Physical Exam Vital signs reviewed General: Well-appearing, nontoxic, no acute distress. Head: Normocephalic, atraumatic Eyes: PERRLA, EOMI ENT: Airway patent Chest: Nonlabored breathing Skin: No visual rash, normal skin tone, abrasions to bilateral elbows Neuro: Alert and oriented 3 Musculoskeletal: No gross abnormalities (Gilda Salas) Course Vital Signs 10/01/24 10/01/24 10/01/24 12:22 14:46 14:52 Temperature 97.9 F Pulse Rate 104 H 86 Pulse Rate [ 72 Radial] Respiratory 18 18 Rate Blood Pressure 162/71 138/72 O2 Sat by Pulse 97 95 Oximetry EKG Findings - EKG Results: EKG: interpreted by ERMD (Heart rate 100. Left axis. LVH criteria. Q wave V1 V2.) <Bryce Trevino - Last Filed: 10/01/24 17:57> Medical Decision Making <Gilda Salas - Last Filed: 10/01/24 12:31> - Lab Data Result diagrams: 10/01/24 12:30 10/01/24 12:30 <Bryce Trevino - Last Filed: 10/01/24 17:57> - Medical Decision Making I performed the quick note portion of this chart. Electronically signed by Gilda Salas PA-C (Gilda Salas) Was pt. sent in by a medical professional or institution (GILLES Marti, FINGER GRIP MACHINE OPERATOR, urgent care, hospital, or penitentiary...) When possible be specific @ -No Did you speak to anyone other than the patient for history (EMS, parent, family, police, friend...)? What history was obtained from this source @ -Family is present and also expresses concerns regarding patient's general weakness Did you review nursing and triage notes (agree or disagree)? Why? @ -I reviewed and agree with nursing and triage notes Were old charts reviewed (outside hosp., previous admission, EMS record, old EKG, old radiological studies, urgent care reports/EKG's, penitentiary records)? Report findings @ -No old charts were reviewed Differential Diagnosis (chest pain, altered mental status, abdominal pain women, abdominal pain men, vaginal bleeding, weakness, fever, dyspnea, syncope, headache, dizziness, GI bleed, back pain, seizure, CVA, palpatations, mental health, musculoskeletal)? @ -Differential Weakness: Hypoglycemia, shock, sepsis, hyponatremia, anemia, infection, LA, ETOH, adverse medicine reaction, overdose, stroke, this is not meant to be an all-inclusive list. EKG interpreted by me (3pts min.). @ -As above X-rays interpreted by me (1pt min.). @ -Chest x-ray shows no acute process CT interpreted by me (1pt min.). @ -CT scan of the brain without acute abnormality U/S interpreted by me (1pt. min.). @ -None done What testing was considered but not performed or refused? (CT, X-rays, U/S, la bs)? Why? @ -None What meds were considered but not given or refused? Why? @ -None Did you discuss the management of the patient with other professionals (professionals i.e. , PA, FINGER GRIP MACHINE OPERATOR, lab, RT, psych nurse, social services technician, paint line production supervisor, teacher, chief contract officer, nurse outreach case manager)? Give summary @ -Case was discussed with Dr. Hutchison who will admit covering hospital call Was smoking cessation discussed for >3mins.? @ -No Was critical care preformed (if so, how long)? @ -No Were there social determinants of health that impacted care today? How? (Homelessness, low income, unemployed, alcoholism, drug addiction, transportation, low edu. Level, literacy, decrease access to med. care, fpc, rehab)? @ -No Was there de-escalation of care discussed even if they declined (Discuss DNR or withdrawal of care, Hospice)? DNR status @ -No What co-morbidities impacted this encounter? (DM, HTN, Smoking, COPD, CAD, Cancer, CVA, ARF, Chemo, Hep., AIDS, mental health diagnosis, sleep apnea, morbid obesity)? @ -None Was patient admitted / discharged? Hospital course, mention meds given and route, prescriptions, significant lab abnormalities, going to OR and other pertinent info. @ -Patient presents with nonspecific generalized weakness. Patient does have mild elevation of liver enzymes and lactic acidosis. On reevaluation patient does feel somewhat better after fluids however still has concerns and does not feel safe at home. In addition patient has continued elevated lactic acid. No concerns for infection at this time. Patient will be admitted, admission orders written. Patient was reevaluated and updated. Undiagnosed new problem with uncertain prognosis? @ -No Drug Therapy requiring intensive monitoring for toxicity (Heparin, Nitro, Insulin, Cardizem)? @ -No Were any procedures done? @ -No Diagnosis/symptom? @ -Lactic acidosis Acute, or Chronic, or Acute on Chronic? @ -Acute Uncomplicated (without systemic symptoms) or Complicated (systemic symptoms)? @ -Default Side effects of treatment? @ -No Exacerbation, Progression, or Severe Exacerbation? @ -No Poses a threat to life or bodily function? How? (Chest pain, USA, LA, pneumonia, PE, COPD, DKA, ARF, appy, cholecystitis, CVA, Diverticulitis, Homicidal, Suicidal, threat to staff... and all critical care pts) @ -No (Bryce Trevino) - Lab Data Lab Results 10/01/24 10/01/24 10/01/24 Range/Units 12:30 12:30 12:30 WBC 9.3 (3.8-10.6) k/uL RBC 5.16 (3.80-5.40) m/uL Hgb 14.5 (11.4-16.0) gm/dL Hct 46.2 H (34.0-46.0) % MCV 89.5 (80.0-100.0) fL MCH 28.1 (25.0-35.0) pg MCHC 31.4 (31.0-37.0) g/dL RDW 14.8 (11.5-15.5) % Plt Count 152 (150-450) k/uL MPV 9.6 Neutrophils % 80 % Lymphocytes % 9 % Monocytes % 5 % Eosinophils % 4 % Basophils % 0 % Neutrophils # 7.4 (1.3-7.7) k/uL Lymphocytes # 0.9 L (1.0-4.8) k/uL Monocytes # 0.5 (0-1.0) k/uL Eosinophils # 0.4 (0-0.7) k/uL Basophils # 0.0 (0-0.2) k/uL PT 11.3 (10.0-12.5) sec INR 1.0 (<1.2) APTT 22.9 (22.0-30.0) sec Sodium 138 (137-145) mmol/L Potassium 4.2 (3.5-5.1) mmol/L Chloride 99 (98-107) mmol/L Carbon Dioxide 27 (22-30) mmol/L Anion Gap 12 mmol/L BUN 15 (7-17) mg/dL Creatinine 0.45 L (0.52-1.04) mg/dL Est GFR (CKD-EPI)AfAm >90 (>60 ml/min/1.73 sqM) Est GFR (CKD-EPI)NonAf >90 (>60 ml/min/1.73 sqM) Glucose 221 H (74-99) mg/dL Lactic Ac Sepsis Rflx Plasma Lactic Acid Zhang (0.7-2.0) mmol/L Calcium 9.2 (8.4-10.2) mg/dL Total Bilirubin 1.0 (0.2-1.3) mg/dL AST 459 H (14-36) U/L ALT 172 H (4-34) U/L Alkaline Phosphatase 100 (38-126) U/L Troponin I (0.000-0.034) ng/mL Total Protein 6.5 (6.3-8.2) g/dL Albumin 3.6 (3.5-5.0) g/dL Urine Color Urine Appearance (Clear) Urine pH (5.0-8.0) Ur Specific [place] (1.001-1.035) Urine Protein (Negative) Urine Glucose (UA) (Negative) Urine Ketones (Negative) Urine Blood (Negative) Urine Nitrite (Negative) Urine Bilirubin (Negative) Urine Urobilinogen (<2.0) mg/dL Ur Leukocyte Esterase (Negative) Urine RBC (0-5) /hpf Urine WBC (0-5) /hpf Ur Squamous Epith Cells (0-4) /hpf Urine Bacteria (None) /hpf Urine Mucus (None) /hpf Influenza Type A (PCR) (Not Detectd) Influenza Type B (PCR) (Not Detectd) RSV (PCR) (Not Detectd) SARS-CoV-2 (PCR) (Not Detectd) 10/01/24 10/01/24 10/01/24 Range/Units 12:30 12:30 13:14 WBC (3.8-10.6) k/uL RBC (3.80-5.40) m/uL Hgb (11.4-16.0) gm/dL Hct (34.0-46.0) % MCV (80.0-100.0) fL MCH (25.0-35.0) pg MCHC (31.0-37.0) g/dL RDW (11.5-15.5) % Plt Count (150-450) k/uL MPV Neutrophils % % Lymphocytes % % Monocytes % % Eosinophils % % Basophils % % Neutrophils # (1.3-7.7) k/uL Lymphocytes # (1.0-4.8) k/uL Monocytes # (0-1.0) k/uL Eosinophils # (0-0.7) k/uL Basophils # (0-0.2) k/uL PT (10.0-12.5) sec INR (<1.2) APTT (22.0-30.0) sec Sodium (137-145) mmol/L Potassium (3.5-5.1) mmol/L Chloride (98-107) mmol/L Carbon Dioxide (22-30) mmol/L Anion Gap mmol/L BUN (7-17) mg/dL Creatinine (0.52-1.04) mg/dL Est GFR (CKD-EPI)AfAm (>60 ml/min/1.73 sqM) Est GFR (CKD-EPI)NonAf (>60 ml/min/1.73 sqM) Glucose (74-99) mg/dL Lactic Ac Sepsis Rflx Y Plasma Lactic Acid Zhang 4.5 H* (0.7-2.0) mmol/L Calcium (8.4-10.2) mg/dL Total Bilirubin (0.2-1.3) mg/dL AST (14-36) U/L ALT (4-34) U/L Alkaline Phosphatase (38-126) U/L Troponin I 0.024 (0.000-0.034) ng/mL Total Protein (6.3-8.2) g/dL Albumin (3.5-5.0) g/dL Urine Color Urine Appearance (Clear) Urine pH (5.0-8.0) Ur Specific [place] (1.001-1.035) Urine Protein (Negative) Urine Glucose (UA) (Negative) Urine Ketones (Negative) Urine Blood (Negative) Urine Nitrite (Negative) Urine Bilirubin (Negative) Urine Urobilinogen (<2.0) mg/dL Ur Leukocyte Esterase (Negative) Urine RBC (0-5) /hpf Urine WBC (0-5) /hpf Ur Squamous Epith Cells (0-4) /hpf Urine Bacteria (None) /hpf Urine Mucus (None) /hpf Influenza Type A (PCR) (Not Detectd) Influenza Type B (PCR) (Not Detectd) RSV (PCR) (Not Detectd) SARS-CoV-2 (PCR) (Not Detectd) 10/01/24 10/01/24 10/01/24 Range/Units 13:21 14:18 15:24 WBC (3.8-10.6) k/uL RBC (3.80-5.40) m/uL Hgb (11.4-16.0) gm/dL Hct (34.0-46.0) % MCV (80.0-100.0) fL MCH (25.0-35.0) pg MCHC (31.0-37.0) g/dL RDW (11.5-15.5) % Plt Count (150-450) k/uL MPV Neutrophils % % Lymphocytes % % Monocytes % % Eosinophils % % Basophils % % Neutrophils # (1.3-7.7) k/uL Lymphocytes # (1.0-4.8) k/uL Monocytes # (0-1.0) k/uL Eosinophils # (0-0.7) k/uL Basophils # (0-0.2) k/uL PT (10.0-12.5) sec INR (<1.2) APTT (22.0-30.0) sec Sodium (137-145) mmol/L Potassium (3.5-5.1) mmol/L Chloride (98-107) mmol/L Carbon Dioxide (22-30) mmol/L Anion Gap mmol/L BUN (7-17) mg/dL Creatinine (0.52-1.04) mg/dL Est GFR (CKD-EPI)AfAm (>60 ml/min/1.73 sqM) Est GFR (CKD-EPI)NonAf (>60 ml/min/1.73 sqM) Glucose (74-99) mg/dL Lactic Ac Sepsis Rflx Plasma Lactic Acid Zhang 4.0 H* (0.7-2.0) mmol/L Calcium (8.4-10.2) mg/dL Total Bilirubin (0.2-1.3) mg/dL AST (14-36) U/L ALT (4-34) U/L Alkaline Phosphatase (38-126) U/L Troponin I (0.000-0.034) ng/mL Total Protein (6.3-8.2) g/dL Albumin (3.5-5.0) g/dL Urine Color Colorless Urine Appearance Clear (Clear) Urine pH 5.0 (5.0-8.0) Ur Specific [place] 1.026 (1.001-1.035) Urine Protein Negative (Negative) Urine Glucose (UA) 4+ H (Negative) Urine Ketones Negative (Negative) Urine Blood Small H (Negative) Urine Nitrite Negative (Negative) Urine Bilirubin Negative (Negative) Urine Urobilinogen <2.0 (<2.0) mg/dL Ur Leukocyte Esterase Moderate H (Negative) Urine RBC 5 (0-5) /hpf Urine WBC 5 (0-5) /hpf Ur Squamous Epith Cells <1 (0-4) /hpf Urine Bacteria Rare H (None) /hpf Urine Mucus Rare H (None) /hpf Influenza Type A (PCR) Not Detected (Not Detectd) Influenza Type B (PCR) Not Detected (Not Detectd) RSV (PCR) Not Detected (Not Detectd) SARS-CoV-2 (PCR) Not Detected (Not Detectd) Disposition <Gilda Salas - Last Filed: 10/01/24 12:31> Is patient prescribed a controlled substance at d/c from ED?: No Time of Disposition: 17:57 <Bryce Trevino - Last Filed: 10/01/24 17:57> Clinical Impression: Lactic acidosis Disposition: ADMITTED IP TO THIS HOSP Referrals: None,Stated [REFERRING] - 1-2 days
[2024-10-01 13:04] LABS: ALT 172 U/L (4-34); AST 459 U/L (14-36); African American GFR (CKD) >90 (>60 ml/min/1.73 sqM); Albumin 3.6 g/dL (3.5-5.0); Alkaline Phosphatase 100 U/L (38-126); Anion Gap 12 mmol/L; Blood Urea Nitrogen 15 mg/dL (7-17); Calcium 9.2 mg/dL (8.4-10.2); Carbon Dioxide 27 mmol/L (22-30); Chloride 99 mmol/L (98-107); Glucose 221 mg/dL (74-99); Non-African American GFR(CKD) >90 (>60 ml/min/1.73 sqM); Potassium 4.2 mmol/L (3.5-5.1); Sodium 138 mmol/L (137-145); Total Protein 6.5 g/dL (6.3-8.2)
--- NOTE | 2024-10-01 13:10 | XR ---
EXAMINATION TYPE: XR chest 2V DATE OF EXAM: 10/01/2024 1:02 PM COMPARISON: None. CLINICAL INDICATION: Female, 69 years old with history of Weakness, TECHNIQUE: XR chest 2V view(s) obtained. FINDINGS: The heart size is normal. The pulmonary vasculature is normal. The lungs are clear. On lateral projection two safety pins are present presumably external to the pa tient. Not identified on the frontal projection. IMPRESSION: 1. No acute pulmonary process. [facility], , 10/01/2024 1:07 PM
[2024-10-01 13:26] LABS: Basophils % (A) 0 %; Eosinophils # (A) 0.4 k/uL (0-0.7); Eosinophils % (A) 4 %; HCT 46.2 % (34.0-46.0); HGB 14.5 gm/dL (11.4-16.0); Lymphocytes # (A) 0.9 k/uL (1.0-4.8); Lymphocytes % (A) 9 %; MCH 28.1 pg (25.0-35.0); MCHC 31.4 g/dL (31.0-37.0); MCV 89.5 fL (80.0-100.0); Mean Platelet Volume 9.6; Monocytes # (A) 0.5 k/uL (0-1.0); Monocytes % (A) 5 %; Neutrophils # (A) 7.4 k/uL (1.3-7.7); Neutrophils % (A) 80 %; Partial Thromboplastin Time 22.9 sec (22.0-30.0); Platelet Count 152 k/uL (150-450); Prothrombin Time 11.3 sec (10.0-12.5); RBC 5.16 m/uL (3.80-5.40); RDW 14.8 % (11.5-15.5); WBC 9.3 k/uL (3.8-10.6)
[2024-10-01 14:07] LABS: Appearance,Urine Clear (Clear); Bacteria,Urine Rare /hpf; Bilirubin,Urine Negative (Negative); Blood,Urine Small (Negative); Color,Urine Colorless; Glucose,Urine (UA) 4+ (Negative); Ketones,Urine Negative (Negative); Leukocyte Esterase,Urine Moderate (Negative); Mucus,Urine Rare /hpf; Nitrite,Urine Negative (Negative); Protein,Urine Negative (Negative); RBC,Urine 5 /hpf (0-5); Specific Gravity,Urine 1.026 (1.001-1.035); Squamous Epithelial Cell,Urine <1 /hpf (0-4); Urobilinogen,Urine <2.0 mg/dL (<2.0); WBC,Urine 5 /hpf (0-5)
--- NOTE | 2024-10-01 14:48 | CT ---
EXAMINATION TYPE: CT brain wo con DATE OF EXAM: 10/01/2024 COMPARISON: None CLINICAL INDICATION: Female, 69 years old with history of weak; PHH, Increased weakness x2days. Fall yesterday, No LOC no thinners. CT DLP: 1184.4 mGycm Automated exposure control for dose reduction was used. Findings: The ventricles, basal cisterns and sulci over the convexities are within normal limits for the patien t's age and there is no mass effect or shift of midline structures. No abnormal density is seen throughout the brain parenchyma and there is no acute intra or extra-axia l hemorrhage. The posterior fossa including the brainstem, fourth ventricle and cerebellar pontine angles appear no rmal. Intraorbital contents appear normal and symmetric. Visualized paranasal sinuses and mastoid air cells are well aerated. The calvarium is intact. IMPRESSION: No acute bleed or mass effect. Mild age-appropriate atrophy. [facility], , 10/01/2024 2:46 PM
[2024-10-01] MEDS: SODIUM CHLORIDE 0.9% 1,000 ML IV STA (15:03)
[2024-10-01 15:12] LABS: Influenza A Not Detected (Not Detectd); Influenza B Not Detected (Not Detectd); RSV Not Detected (Not Detectd)
[2024-10-01] MEDS ORDERED: NALOXONE 0.4 MG/ML 1 ML VIAL IV PRN (17:58)
[2024-10-01] MEDS: SODIUM CHLORIDE 0.9% 1,000 ML IV SCH (18:19)
[2024-10-01] MEDS: ATORVASTATIN 20 MG TAB PO SCH (22:37)
[2024-10-01] MEDS: INSULIN GLARGINE (LANTUS) 100 UNIT/ML SYR SQ SCH (22:45)
[2024-10-01 22:46] LABS: Glucose,Whole Blood 176 mg/dL (70-110)
[2024-10-01] MEDS: INSULIN LISPRO (HumaLOG) 100 UNIT/ML 10 mL VL SQ SCH (23:10)
[2024-10-02 03:01] LABS: Basophils % (A) 0 %; Eosinophils # (A) 0.8 k/uL (0-0.7); Eosinophils % (A) 7 %; HCT 41.7 % (34.0-46.0); HGB 13.2 gm/dL (11.4-16.0); Hypochromasia Slight; Lymphocytes # (A) 1.6 k/uL (1.0-4.8); Lymphocytes % (A) 15 %; MCH 28.7 pg (25.0-35.0); MCHC 31.7 g/dL (31.0-37.0); MCV 90.6 fL (80.0-100.0); Mean Platelet Volume 9.2; Monocytes # (A) 0.8 k/uL (0-1.0); Monocytes % (A) 7 %; Neutrophils # (A) 7.3 k/uL (1.3-7.7); Neutrophils % (A) 69 %; Platelet Count 139 k/uL (150-450); RDW 14.8 % (11.5-15.5); WBC 10.6 k/uL (3.8-10.6)
[2024-10-02 03:16] LABS: ALT 169 U/L (4-34); AST 316 U/L (14-36); African American GFR (CKD) >90 (>60 ml/min/1.73 sqM); Albumin 3.2 g/dL (3.5-5.0); Alkaline Phosphatase 68 U/L (38-126); Anion Gap 3 mmol/L; Blood Urea Nitrogen 17 mg/dL (7-17); Calcium 8.8 mg/dL (8.4-10.2); Carbon Dioxide 34 mmol/L (22-30); Chloride 99 mmol/L (98-107); Glucose 91 mg/dL (74-99); Non-African American GFR(CKD) >90 (>60 ml/min/1.73 sqM); Potassium 4.1 mmol/L (3.5-5.1); Sodium 136 mmol/L (137-145); Total Bilirubin 0.7 mg/dL (0.2-1.3); Total Protein 5.8 g/dL (6.3-8.2)
[2024-10-02] MEDS: ACETAMINOPHEN TAB 325 MG TAB PO PRN (06:11)
[2024-10-02 07:42] LABS: Glucose,Whole Blood 163 mg/dL (70-110)
[2024-10-02] MEDS: LOSARTAN 50 MG TAB PO SCH (09:04)
[2024-10-02] MEDS: PARoxetine 20 MG TAB PO SCH (09:04)
[2024-10-02] MEDS: NON FORMULARY DRUG (Liraglutide [Victoza 3-Pak] 0.6 MG/0.1 ML Ml) SQ SCH (09:04)
[2024-10-02] MEDS: hydroCHLOROthiazide 25 MG TAB PO SCH (09:04)
[2024-10-02] MEDS: DAPAGLIFLOZIN PROPANEDIOL 10 MG TABLET PO SCH (09:04)
[2024-10-02 12:13] LABS: Glucose,Whole Blood 130 mg/dL (70-110)
--- NOTE | 2024-10-02 14:32 | P.HPIM ---
History of Present Illness H&P Date: 10/02/24 Chief Complaint: Weakness 69-year-old female, history of hypertension, hyperlipidemia, diabetes mellitus, present to the emergency department with concern for general weakness. Onset of symptoms was a couple days ago. Patient did have a fall yesterday without injury. No head injury. No loss of consciousness. No syncope. Patient states she has weakness that is general, not isolated to any area. No confusion or speech problems. No history of similar symptoms previously. Patient has mild cough however that is chronic. Workup in ED, including a CT of the head is unremarkable Lab review shows WBC of 9.3, hemoglobin of 4.5 and platelet count of 152, sodium 138, potassium 4.2, BUNs/creatinine of 15/0.45, blood glucose elevated at 221, lactic acid of 2.2, AST/ALT elevated at well 459/172 Review of Systems REVIEW OF SYSTEMS: CONSTITUTIONAL: No fever, no malaise, no fatigue. HEENT: No recent visual problems or hearing problems. Denied any sore throat. CARDIOVASCULAR: No chest pain, orthopnea, PND, no palpitations, no syncope. PULMONARY: No shortness of breath, no cough, no hemoptysis. GASTROINTESTINAL: No diarrhea, no nausea, no vomiting, no abdominal pain. NEUROLOGICAL: No headaches, no weakness, no numbness. HEMATOLOGICAL: Denies any bleeding or petechiae. GENITOURINARY: Denies any burning micturition, frequency, or urgency. MUSCULOSKELETAL/RHEUMATOLOGICAL: Denies any joint pain, swelling, or any muscle pain. ENDOCRINE: Denies any polyuria or polydipsia. The rest of the 14-point review of systems is negative. Past Medical History Past Medical History: Heart Failure, Diabetes Mellitus, Hyperlipidemia, Hypertension History of Any Multi-Drug Resistant Organisms: None Reported Past Surgical History: Cholecystectomy, Heart Catheterization Past Anesthesia/Blood Transfusion Reactions: No Reported Reaction Smoking Status: Never smoker - Past Family History Father Family Medical History: Congestive Heart Failure (CHF), Diabetes Mellitus Mother Family Medical History: Congestive Heart Failure (CHF), Diabetes Mellitus Son(s) Family Medical History: Diabetes Mellitus Sister(s) Family Medical History: Diabetes Mellitus Medications and Allergies Home Medications Medication Instructions Recorded Confirmed Type Dapagliflozin Propanediol [Farxiga] 10 mg PO DAILY 05/28/23 10/01/24 History INSULIN ASPART (NovoLOG) [NovoLOG 20 unit SQ TID-W/MEALS 05/28/23 10/01/24 Hi story (formulary)] Insulin Degludec [Tresiba 140 units SQ HS 05/28/23 10/01/24 History Flextouch U-200 Pen] Liraglutide [Victoza 3-Luca] 1.8 mg SQ DAILY 05/28/23 10/01/24 History Lovastatin [Mevacor] 80 mg PO HS 05/28/23 10/01/24 History PARoxetine HCL [Paxil] 20 mg PO DAILY 05/28/23 10/01/24 History hydroCHLOROthiazide [Hydrodiuril] 25 mg PO DAILY 05/28/23 10/01/24 History metFORMIN HCL [Glucophage] 1,000 mg PO BID 05/28/23 10/01/24 History Losartan [Cozaar] 50 mg PO DAILY 10/01/24 10/01/24 History Allergies Allergy/AdvReac Type Severity Reaction Status Date / Time No Known Allergies Allergy Verified 10/01/24 18:49 Physical Exam Vitals: Vital Signs Temp Pulse Pulse Pulse Resp BP BP 10/02/24 07:06 98.6 F 80 18 127/66 10/02/24 02:00 98 F 81 176/73 10/01/24 20:00 96.6 F L 90 147/68 10/01/24 17:57 87 18 112/59 10/01/24 14:52 86 18 138/72 10/01/24 14:46 72 10/01/24 12:22 97.9 F 104 H 18 162/71 Pulse Ox 10/02/24 07:06 96 10/02/24 02:00 97 10/01/24 20:00 96 10/01/24 17:57 94 L 10/01/24 14:52 95 10/01/24 14:46 10/01/24 12:22 97 Intake and Output 10/01/24 10/02/24 10/02/24 22:59 06:59 14:59 Intake Total 240 Balance 240 Intake: Oral 240 Other: # Voids 1 2 Weight 88.904 kg General appearance: alert, in no apparent distress; patient is awake and alert and oriented x 4 Head exam: Present: atraumatic Eye exam: Present: normal appearance, PERRL, EOMI Neck exam: Present: normal inspection Respiratory exam: Present: normal lung sounds bilaterally Cardiovascular Exam: Present: regular rate, normal rhythm, systolic murmur (Patient states chronic) GI/Abdominal exam: Present: soft. Absent: tenderness Extremities exam: Present: normal inspection. Absent: pedal edema, calf tenderness Neurological exam: Present: alert, oriented X3, CN II-XII intact. Absent: motor sensory deficit Neurological exam: Present: protecting the airway Speech: Present: fluid speech Cranial nerves: EOM's Intact: Normal Motor strength exam: RUE: 5, LUE: 5, RLE: 5, LLE: 5 Eye Response: (4) open spontaneously Motor Response: (6) obeys commands Psychiatric exam: Present: normal affect, normal mood Skin exam: Present: normal color Results CBC & Chem 7: 10/02/24 02:26 10/02/24 02:26 Labs: Abnormal Lab Results - Last 24 Hours (Table) 10/01/24 10/01/24 10/01/24 Range/Units 12:30 12:30 12:30 Hct 46.2 H (34.0-46.0) % Plt Count (150-450) k/uL Lymphocytes # 0.9 L (1.0-4.8) k/uL Eosinophils # (0-0.7) k/uL Sodium (137-145) mmol/L Carbon Dioxide (22-30) mmol/L Creatinine 0.45 L (0.52-1.04) mg/dL Glucose 221 H (74-99) mg/dL POC Glucose (mg/dL) (70-110) mg/dL Plasma Lactic Acid Zhang 4.5 H* (0.7-2.0) mmol/L AST 459 H (14-36) U/L ALT 172 H (4-34) U/L Total Protein (6.3-8.2) g/dL Albumin (3.5-5.0) g/dL Urine Glucose (UA) (Negative) Urine Blood (Negative) Ur Leukocyte Esterase (Negative) Urine Bacteria (None) /hpf Urine Mucus (None) /hpf 10/01/24 10/01/24 10/01/24 Range/Units 13:21 15:24 19:09 Hct (34.0-46.0) % Plt Count (150-450) k/uL Lymphocytes # (1.0-4.8) k/uL Eosinophils # (0-0.7) k/uL Sodium (137-145) mmol/L Carbon Dioxide (22-30) mmol/L Creatinine (0.52-1.04) mg/dL Glucose (74-99) mg/dL POC Glucose (mg/dL) (70-110) mg/dL Plasma Lactic Acid Zhang 4.0 H* 2.6 H* (0.7-2.0) mmol/L AST (14-36) U/L ALT (4-34) U/L Total Protein (6.3-8.2) g/dL Albumin (3.5-5.0) g/dL Urine Glucose (UA) 4+ H (Negative) Urine Blood Small H (Negative) Ur Leukocyte Esterase Moderate H (Negative) Urine Bacteria Rare H (None) /hpf Urine Mucus Rare H (None) /hpf 10/01/24 10/01/24 10/02/24 Range/Units 21:41 22:45 02:26 Hct (34.0-46.0) % Plt Count 139 L (150-450) k/uL Lymphocytes # (1.0-4.8) k/uL Eosinophils # 0.8 H (0-0.7) k/uL Sodium (137-145) mmol/L Carbon Dioxide (22-30) mmol/L Creatinine (0.52-1.04) mg/dL Glucose (74-99) mg/dL POC Glucose (mg/dL) 176 H (70-110) mg/dL Plasma Lactic Acid Zhang 2.2 H* (0.7-2.0) mmol/L AST (14-36) U/L ALT (4-34) U/L Total Protein (6.3-8.2) g/dL Albumin (3.5-5.0) g/dL Urine Glucose (UA) (Negative) Urine Blood (Negative) Ur Leukocyte Esterase (Negative) Urine Bacteria (None) /hpf Urine Mucus (None) /hpf 10/02/24 10/02/24 Range/Units 02:26 07:41 Hct (34.0-46.0) % Plt Count (150-450) k/uL Lymphocytes # (1.0-4.8) k/uL Eosinophils # (0-0.7) k/uL Sodium 136 L (137-145) mmol/L Carbon Dioxide 34 H (22-30) mmol/L Creatinine (0.52-1.04) mg/dL Glucose (74-99) mg/dL POC Glucose (mg/dL) 163 H (70-110) mg/dL Plasma Lactic Acid Zhang (0.7-2.0) mmol/L AST 316 H (14-36) U/L ALT 169 H (4-34) U/L Total Protein 5.8 L (6.3-8.2) g/dL Albumin 3.2 L (3.5-5.0) g/dL Urine Glucose (UA) (Negative) Urine Blood (Negative) Ur Leukocyte Esterase (Negative) Urine Bacteria (None) /hpf Urine Mucus (None) /hpf Thrombosis Risk Factor Assmnt - Choose All That Apply Any of the Below Risk Factors Present?: Yes Each Factor Represents 1 point: Obesity (BMI >25) Other Risk Factors: Yes Each Risk Factor Represents 2 Points: Age 61-74 years Other congenital or acquired thrombophilia - If yes, enter type in comment: No Thrombosis Risk Factor Assessment Total Risk Factor Score: 3 Thrombosis Risk Factor Assessment Level: Moderate Risk Assessment and Plan Assessment: 1. Lactic acidosis; likely dehydration; resolved -Metformin remains on hold -Will repeat lactic acid levels 2. Transaminitis; etiology unclear; patient denies alcohol abuse or excessive Tylenol or any other [id number] medications; patient has been placed on IV fluid Liver enzymes are trending down -We will order acute hepatitis profile and hepatic function panel; recommendations once test results are available 3. Possible UTI; UA is positive for rare bacteria, moderate leukocyte esterase and small amount of blood; given no urinary symptoms, normal WBC and no reports of fever, we will hold off on antibiotic therapy and make further recommendations once urine cultures available 4. Weakness; likely related to UTI versus dehydration; will consult PT for further evaluation 5. Hyperglycemia; diabetes mellitus with long-term insulin use -- We will continue with long-acting insulin and Premeal scheduled coverage; monitor Accu-Cheks q. ACH S with insulin sliding scale; hold metformin given lactic acidosis 6. Hypertension; losartan 50 mg daily 7. Hyperlipidemia; patient takes Lipitor 20 mg nightly; will hold for next few days and trend liver enzymes VT prophylaxis; SCDs CODE STATUS; full code
[2024-10-02 16:44] LABS: Glucose,Whole Blood 80 mg/dL (70-110)
[2024-10-02 21:22] LABS: Glucose,Whole Blood 185 mg/dL (70-110)
[2024-10-02] MEDS ORDERED: traZODone HCL 50 MG TAB PO PRN (22:18)
[2024-10-03 06:13] LABS: Glucose,Whole Blood 98 mg/dL (70-110)
[2024-10-03 07:46] VITALS: BP 138/69; PULSE 80; RESP 16; TEMP 97.8
[2024-10-03 09:52] LABS: Basophils # (A) 0.07 X 10*3/uL (0.00-0.10); Basophils % (A) 0.7 %; Eosinophils # (A) 0.63 X 10*3/uL (0.04-0.35); Eosinophils % (A) 6.7 %; HCT 43.9 % (37.2-46.3); HGB 13.8 g/dL (12.0-15.0); Lymphocytes # (A) 1.22 X 10*3/uL (0.90-5.00); Lymphocytes % (A) 12.9 %; MCH 28.2 pg (27.0-32.0); MCHC 31.4 g/dL (32.0-37.0); MCV 89.8 FL (80.0-97.0); Mean Platelet Volume 12.5 FL (9.5-12.2); Monocytes # (A) 0.93 X 10*3/uL (0.20-1.00); Monocytes % (A) 9.9 %; NRBC Per 100 WBC 0 X 10*3/uL (0.00-0.01); Neutrophils # (A) 6.55 X 10*3/uL (1.80-7.70); Neutrophils % (A) 69.4 %; Platelet Count 132 X 10*3/uL (140-440); RBC 4.89 X 10*6/uL (4.10-5.20); RDW 14.7 % (11.5-14.5); WBC 9.44 X 10*3/uL (4.50-10.00)
[2024-10-03 10:16] LABS: Hepatitis A Antibody IgM Nonreactive (Nonreactive); Hepatitis B Core IgM Nonreactive (Nonreactive); Hepatitis B Surface Antigen Nonreactive (Nonreactive); Hepatitis C IgG Antibody Nonreactive (Nonreactive)
[2024-10-03 10:25] LABS: ALT 165 U/L (8-44); AST 229 U/L (13-35); Albumin 3.5 g/dL (3.8-4.9); Albumin/Globulin Ratio 1.46 Ratio (1.60-3.17); Alkaline Phosphatase 73 U/L (41-126); Bilirubin, Conjugated 0.32 mg/dL (0.20-0.40); Bilirubin,Unconjugated 0.38 mg/dL (0.20-1.00); Blood Urea Nitrogen 13.2 mg/dL (9.0-27.0); Calcium 9.2 mg/dL (8.7-10.3); Carbon Dioxide 27.7 mmol/L (21.6-31.8); Chloride 103 mmol/L (96-109); Globulin 2.4 g/dL (1.6-3.3); Glucose 101 mg/dL (70-110); Potassium 4.1 mmol/L (3.5-5.5); Sodium 140 mmol/L (135-145); Total Bilirubin 0.7 mg/dL (0.3-1.2); Total Protein 5.9 g/dL (6.2-8.2)
[2024-10-03 12:14] LABS: Glucose,Whole Blood 149 mg/dL (70-110)
== END 2024-10-03 14:12 | disposition home or self-care (01) ==
LOC: EC 12:15 → 1SOBS 17:58 → 6NMEDSUR 10-02 18:19
PROVIDERS: ADMIT Internal Medicine; ATTEND Internal Medicine
DX: E87.20 Acidosis, unspecified (principal); R74.01 Elevation of levels of liver transaminase levels; E11.65 Type 2 diabetes mellitus with hyperglycemia; E78.5 Hyperlipidemia, unspecified; I11.0 Hypertensive heart disease with heart failure; I50.9 Heart failure, unspecified; Z79.4 Long term (current) use of insulin; Z79.82 Long term (current) use of aspirin; Z79.84 Long term (current) use of oral hypoglycemic drugs; Z79.899 Other long term (current) drug therapy
CPT/HCPCS: 96360; 96361; 99285; 36415; 93005; 97161; 80053 ×2; 80048; 80076; 80074; 83605 ×3; 84484; 85025 ×3; 85610; 85730; 81001; 87636; 71046; 70450; G0378 ×3

== ENCOUNTER 2025-02-05 13:47 | Inpatient (IN) | payer MEDICARE ==
--- NOTE | 2025-02-05 14:15 | ED ---
General Adult HPI - General Chief complaint: Shortness of Breath Stated complaint: SOB Time Seen by Provider: 02/05/25 13:57 Source: patient, EMS Mode of arrival: EMS Limitations: no limitations - History of Present Illness Initial comments: Dictation was produced using [employer] dictation software. please excuse any grammatical, word or spelling errors. Chief Complaint: 69-year-old female heart failure presents with dyspnea History of Present Illness: Patient is 69-year-old female presents to the emergency with dyspnea and 20 pound weight gain he has a history of heart failure. States that over the week and half she has been having worsening shor tness of breath. She states that her shortness of breath is accompanied with orthopnea, leg swelling and worsening dyspnea with exertion and laying flat. States that is typical of her usual heart failure symptoms. She does take diuretics. The ROS documented in this emergency department record has been reviewed and confirmed by me. Those systems with pertinent positive or negative responses h ave been documented in the HPI. All other systems are other negative and/or noncontributory. - Related Data Home Medications Medication Instructions Recorded Confirmed INSULIN ASPART (NovoLOG) [NovoLOG 20 unit SQ TID-W/MEALS 05/28/23 02/05/25 (formulary)] PARoxetine HCL [Paxil] 20 mg PO DAILY 05/28/23 02/05/25 hydroCHLOROthiazide [Hydrodiuril] 25 mg PO DAILY 05/28/23 02/05/25 metFORMIN HCL [Glucophage] 1,000 mg PO BID 05/28/23 02/05/25 Losartan [Cozaar] 50 mg PO HS 10/01/24 02/05/25 Insulin Glargine,Hum.rec.anlog 140 units SQ HS 02/05/25 02/05/25 [Toujeo Max Solostar] Lovastatin [Mevacor] 80 mg PO DAILY 02/05/25 02/05/25 Allergies Allergy/AdvReac Type Severity Reaction Status Date / Time No Known Allergies Allergy Verified 02/05/25 16:28 Review of Systems ROS Statement: Those systems with pertinent positive or pertinent negative responses have been documented in the HPI. ROS Other: All systems not noted in ROS Statement are negative. Past Medical History Past Medical History: Heart Failure, Diabetes Mellitus, Hyperlipidemia, Hypertension History of Any Multi-Drug Resistant Organisms: None Reported Past Surgical History: Cholecystectomy, Heart Catheterization Past Anesthesia/Blood Transfusion Reactions: No Reported Reaction Past Psychological History: Anxiety Smoking Status: Never smoker Past Alcohol Use History: Rare Past Drug Use History: None Reported - Past Family History Father Family Medical History: Congestive Heart Failure (CHF), Diabetes Mellitus Mother Family Medical History: Congestive Heart Failure (CHF), Diabetes Mellitus Son(s) Family Medical History: Diabetes Mellitus Sister(s) Family Medical History: Diabetes Mellitus General Exam - General Exam Comments Initial Comments: PHYSICAL EXAM: General Impression: Alert and oriented x3, not in acute distress HEENT: Normocephalic atraumatic, extra-ocular movements intact, pupils equal and reactive to light bilaterally, mucous membranes moist. Cardiovascular: Heart regular rate and rhythm Chest: Able to complete full sentences, no retractions, no tachypnea, mild diffuse wheezing Abdomen: abdomen soft, non-tender, non-distended, no organomegaly Musculoskeletal: Pulses present and equal in all extremities, no peripheral edema Motor: no focal deficits noted Neurological: CN II-XII grossly intact, no focal motor or sensory deficits noted Skin: Intact with no visualized rashes Psych: Normal affect and mood Limitations: no limitations Course Vital Signs 02/05/25 02/05/25 02/05/25 13:53 13:55 14:00 Temperature 98.5 F Pulse Rate 58 L 56 L Pulse Rate [ 56 L Educational Aid ] Respiratory 16 20 17 Rate Blood Pressure 139/58 136/55 O2 Sat by Pulse 100 97 Oximetry 02/05/25 15:00 Temperature 98.2 F Pulse Rate 55 L Pulse Rate [ Educational Aid ] Respiratory 31 H Rate Blood Pressure 139/58 O2 Sat by Pulse 97 Oximetry EKG Findings - EKG Comments: EKG Findings:: My EKG interpretation: Ventricular rate 60, A-V dissociation, QRS 102, QTc 4 9. No [place] prolongation, no QTC prolongation, no ST or T-wave changes noted. Medical Decision Making - Medical Decision Making Was pt. sent in by a medical professional or institution (, PA, WAREHOUSE PRODUCTION WORKER, urgent care, hospital, or [place] health care facility...) When possible be specific @ -No Did you speak to anyone other than the patient for history (EMS, parent, family, police, friend...)? What history was obtained from this source @ -No Did you review nursing and triage notes (agree or disagree)? Why? @ -I reviewed and agree with nursing and triage notes Were old charts reviewed (outside hosp., previous admission, EMS record, old EKG, old radiological studies, urgent care reports/EKG's, [place] health care facility records)? Report findings @ -No old charts were reviewed Differential Diagnosis (chest pain, altered mental status, abdominal pain women, abdominal pain men, vaginal bleeding, musculoskeletal, weakness, fever, dyspnea, syncope, headache, dizziness, GI bleed, back pain, seizure, CVA, palpatations, mental health)? @ -Differential Dyspnea: Coronary syndrome, arrhythmia, tamponade, asthma, COPD, pulmonary embolism, pneumonia, pneumothorax, pulmonary effusion, anaphylaxis, diabetic ketoacidosis, flailed chest, pulmonary contusion, diaphragmatic rupture, anemia, neuromuscular, this is not meant to be an all-inclusive list. EKG interpreted by me (3pts min.). @ -See above X-rays interpreted by me (1pt min.). @ -Chest x-ray shows heart failure CT interpreted by me (1pt min.). @ -None done U/S interpreted by me (1pt. min.). @ -None done What testing was considered but not performed or refused? (CT, X-rays, U/S, labs)? Why? @ -None What meds were considered but not given or refused? Why? @ -None Was smoking cessation discussed for >3mins.? @ -No Were there social determinants of health that impacted care today? How? (Homelessness, low income, unemployed, alcoholism, drug addiction, transportation, low edu. Level, literacy, decrease access to med. care, fci, rehab)? @ -No Was there de-escalation of care discussed even if they declined (Discuss DNR or withdrawal of care, Hospice)? DNR status @ -No What co-morbidities impacted this encounter? (DM, HTN, Smoking, COPD, CAD, C ancer, CVA, ARF, Chemo, Hep., AIDS, mental health diagnosis, sleep apnea, morbid obesity)? @ -Heart failure Was patient admitted / discharged? Hospital course, mention meds given and route, prescriptions, significant lab abnormalities, going to OR and other pertinent info. @ -69-year-old female presents to the emergency department with worsening dyspnea. She does not have a history of A-fib. She states she has extensive history of heart failure takes diuretics. EKG shows A-V dissociation. Laboratory evaluation obtained. Glucose of initially 46 corrected with dextrose. Lactic acidosis 4.3. Elevated troponin 0.109. BNP 1800. Chest x- ray shows heart failure. Case discussed with project technician regarding abnormal EKG. Case discussed with hospitalist for admission. Did you discuss the management of the patient with other professionals (professionals i.e. , PA, WAREHOUSE PRODUCTION WORKER, lab, RT, psych nurse, social security specialist, information operator, teacher, patrol officer, case loader operator)? Give summary @ -See above Was critical care preformed (if so, how long)? @ -Yes, 33 minutes for hypoglycemia, A-V dissociation Undiagnosed new problem with uncertain prognosis? @ -No Drug Therapy requiring intensive monitoring for toxicity (Heparin, Nitro, Insulin, Cardizem)? @ -No Were any procedures done? @ -No Diagnosis/symptom? Acute, or Chronic, or Acute on Chronic? Uncomplicated (without systemic symptoms) or Complicated (systemic symptoms)? @ -A-V dissociation Side effects of treatment? @ -No Exacerbation, Progression, or Severe Exacerbation? @ -No Poses a threat to life or bodily function? How? (Chest pain, USA, AR, pneumonia, PE, COPD, DKA, ARF, appy, cholecystitis, CVA, Diverticulitis, Homicidal, Suic idal, threat to staff... and all critical care pts) @ -yes - Lab Data Result diagrams: 02/05/25 14:07 02/05/25 14:07 Lab Results 02/05/25 02/05/25 02/05/25 Range/Units 14:07 14:07 14:07 WBC 8.28 (4.50-10.00) 10*3/uL RBC 4.24 (4.10-5.20) 10*6/uL Hgb 12.1 (12.0-15.0) g/dL Hct 39.0 (37.2-46.3) % MCV 92.0 (80.0-97.0) fL MCH 28.5 (27.0-32.0) pg MCHC 31.0 L (32.0-37.0) g/dL Plt Count 145 (140-440) 10*3/uL MPV 12.0 (9.5-12.2) fL Immature Gran % (Auto) 0.5 % Neutrophils % 75.1 % Lymphocytes % 9.7 % Monocytes % 12.3 % Eosinophils % 1.8 % Basophils % 0.6 % Immature Gran # 0.04 (0.00-0.04) 10*3/uL Neutrophils # 6.22 (1.80-7.70) 10*3/uL Lymphocytes # 0.80 L (0.90-5.00) 10*3/uL Monocytes # 1.02 H (0.20-1.00) 10*3/uL Eosinophils # 0.15 (0.04-0.35) 10*3/uL Basophils # 0.05 (0.00-0.10) 10*3/uL PT (10.0-12.5) sec INR (<1.2) APTT (22.0-30.0) sec Sodium 141 (137-145) mmol/L Potassium 4.5 (3.5-5.1) mmol/L Chloride 102 (98-107) mmol/L Carbon Dioxide 25 (22-30) mmol/L Anion Gap 14 mmol/L BUN 49 H (7-17) mg/dL Creatinine 1.26 H (0.52-1.04) mg/dL Est GFR (CKD-EPI)AfAm 50 (>60 ml/min/1.73 sqM) Est GFR (CKD-EPI)NonAf 43 (>60 ml/min/1.73 sqM) Glucose 46 L* (74-99) mg/dL POC Glucose (mg/dL) (70-110) mg/dL POC Glu Barrel Endshake Adjuster ID Lactic Ac Sepsis Rflx Plasma Lactic Acid Zhang 4.3 H* (0.7-2.0) mmol/L Calcium 9.1 (8.4-10.2) mg/dL Magnesium 1.6 (1.6-2.3) mg/dL Total Bilirubin 0.7 (0.2-1.3) mg/dL AST 40 H (14-36) U/L ALT 26 (4-34) U/L Alkaline Phosphatase 84 (38-126) U/L Troponin I (0.000-0.034) ng/mL NT-Pro-B Natriuret Pep 1800 pg/mL Total Protein 6.6 (6.3-8.2) g/dL Albumin 3.6 (3.5-5.0) g/dL 02/05/25 02/05/25 02/05/25 Range/Units 14:07 14:45 15:29 WBC (4.50-10.00) 10*3/uL RBC (4.10-5.20) 10*6/uL Hgb (12.0-15.0) g/dL Hct (37.2-46.3) % MCV (80.0-97.0) fL MCH (27.0-32.0) pg MCHC (32.0-37.0) g/dL Plt Count (140-440) 10*3/uL MPV (9.5-12.2) fL Immature Gran % (Auto) % Neutrophils % % Lymphocytes % % Monocytes % % Eosinophils % % Basophils % % Immature Gran # (0.00-0.04) 10*3/uL Neutrophils # (1.80-7.70) 10*3/uL Lymphocytes # (0.90-5.00) 10*3/uL Monocytes # (0.20-1.00) 10*3/uL Eosinophils # (0.04-0.35) 10*3/uL Basophils # (0.00-0.10) 10*3/uL PT (10.0-12.5) sec INR (<1.2) APTT (22.0-30.0) sec Sodium (137-145) mmol/L Potassium (3.5-5.1) mmol/L Chloride (98-107) mmol/L Carbon Dioxide (22-30) mmol/L Anion Gap mmol/L BUN (7-17) mg/dL Creatinine (0.52-1.04) mg/dL Est GFR (CKD-EPI)AfAm (>60 ml/min/1.73 sqM) Est GFR (CKD-EPI)NonAf (>60 ml/min/1.73 sqM) Glucose (74-99) mg/dL POC Glucose (mg/dL) 138 H (70-110) mg/dL POC Glu Barrel Endshake Adjuster ID [place]ore Carmelina Lactic Ac Sepsis Rflx Y Plasma Lactic Acid Zhang (0.7-2.0) mmol/L Calcium (8.4-10.2) mg/dL Magnesium (1.6-2.3) mg/dL Total Bilirubin (0.2-1.3) mg/dL AST (14-36) U/L ALT (4-34) U/L Alkaline Phosphatase (38-126) U/L Troponin I 0.119 H* (0.000-0.034) ng/mL NT-Pro-B Natriuret Pep pg/mL Total Protein (6.3-8.2) g/dL Albumin (3.5-5.0) g/dL 02/05/25 02/05/25 Range/Units 15:46 15:46 WBC (4.50-10.00) 10*3/uL RBC (4.10-5.20) 10*6/uL Hgb (12.0-15.0) g/dL Hct (37.2-46.3) % MCV (80.0-97.0) fL MCH (27.0-32.0) pg MCHC (32.0-37.0) g/dL Plt Count (140-440) 10*3/uL MPV (9.5-12.2) fL Immature Gran % (Auto) % Neutrophils % % Lymphocytes % % Monocytes % % Eosinophils % % Basophils % % Immature Gran # (0.00-0.04) 10*3/uL Neutrophils # (1.80-7.70) 10*3/uL Lymphocytes # (0.90-5.00) 10*3/uL Monocytes # (0.20-1.00) 10*3/uL Eosinophils # (0.04-0.35) 10*3/uL Basophils # (0.00-0.10) 10*3/uL PT 12.7 H (10.0-12.5) sec INR 1.2 H (<1.2) APTT 24.9 (22.0-30.0) sec Sodium (137-145) mmol/L Potassium (3.5-5.1) mmol/L Chloride (98-107) mmol/L Carbon Dioxide (22-30) mmol/L Anion Gap mmol/L BUN (7-17) mg/dL Creatinine (0.52-1.04) mg/dL Est GFR (CKD-EPI)AfAm (>60 ml/min/1.73 sqM) Est GFR (CKD-EPI)NonAf (>60 ml/min/1.73 sqM) Glucose (74-99) mg/dL POC Glucose (mg/dL) (70-110) mg/dL POC Glu Barrel Endshake Adjuster ID Lactic Ac Sepsis Rflx Plasma Lactic Acid Zhang 3.5 H* (0.7-2.0) mmol/L Calcium (8.4-10.2) mg/dL Magnesium (1.6-2.3) mg/dL Total Bilirubin (0.2-1.3) mg/dL AST (14-36) U/L ALT (4-34) U/L Alkaline Phosphatase (38-126) U/L Troponin I (0.000-0.034) ng/mL NT-Pro-B Natriuret Pep pg/mL Total Protein (6.3-8.2) g/dL Albumin (3.5-5.0) g/dL Disposition Clinical Impression: AV dissociation Disposition: ADMITTED IP TO THIS [facility] Condition: Fair Decision Time: 15:59
[2025-02-05 14:17] LABS: Basophils # (A) 0.05 10*3/uL (0.00-0.10); Basophils % (A) 0.6 %; Eosinophils # (A) 0.15 10*3/uL (0.04-0.35); Eosinophils % (A) 1.8 %; HCT 39.0 % (37.2-46.3); HGB 12.1 g/dL (12.0-15.0); Lymphocytes # (A) 0.80 10*3/uL (0.90-5.00); Lymphocytes % (A) 9.7 %; MCH 28.5 pg (27.0-32.0); MCHC 31.0 g/dL (32.0-37.0); MCV 92.0 fL (80.0-97.0); Monocytes # (A) 1.02 10*3/uL (0.20-1.00); Monocytes % (A) 12.3 %; Neutrophils # (A) 6.22 10*3/uL (1.80-7.70); Neutrophils % (A) 75.1 %; RBC 4.24 10*6/uL (4.10-5.20); RDW 16.7 % (11.5-14.5); WBC 8.28 10*3/uL (4.50-10.00)
[2025-02-05 14:29] LABS: ALT 26 U/L (4-34); AST 40 U/L (14-36); African American GFR (CKD) 50 (>60 ml/min/1.73 sqM); Albumin 3.6 g/dL (3.5-5.0); Alkaline Phosphatase 84 U/L (38-126); Anion Gap 14 mmol/L; Blood Urea Nitrogen 49 mg/dL (7-17); Calcium 9.1 mg/dL (8.4-10.2); Carbon Dioxide 25 mmol/L (22-30); Chloride 102 mmol/L (98-107); Magnesium 1.6 mg/dL (1.6-2.3); Non-African American GFR(CKD) 43 (>60 ml/min/1.73 sqM); Potassium 4.5 mmol/L (3.5-5.1); Sodium 141 mmol/L (137-145); Total Protein 6.6 g/dL (6.3-8.2)
[2025-02-05 14:37] LABS: NT-Pro-B-Type Natriuretic Pept 1800 pg/mL
[2025-02-05 14:45] LABS: Glucose 46 mg/dL (74-99)
[2025-02-05 14:51] LABS: Platelet Count 145 10*3/uL (140-440)
--- NOTE | 2025-02-05 14:55 | XR ---
EXAMINATION TYPE: XR chest 2V DATE OF EXAM: 02/05/2025 2:30 PM COMPARISON: Chest radiographs from 10/01/2024. CLINICAL INDICATION: Female, 69 years old with history of difficulty breathing; [facility] TECHNIQUE: XR chest 2V Frontal and lateral views of the chest. FINDINGS: Lungs/Pleura: There is no evidence of pleural effusion, focal consolidation, or pneumothorax. Pulmonary vascularity: Unremarkable. Heart/mediastinum: Cardiomediastinal silhouette is enlarged. Musculoskeletal: No acute osseous pathology. IMPRESSION: Cardiomegaly and mild pulmonary vascular congestion. Correlate with BNP for congestive heart failure. [facility], , 02/05/2025 2:53 PM
[2025-02-05] MEDS: DEXTROSE 50% SYRINGE 50 ML IVP STA (14:57)
[2025-02-05 15:31] LABS: Glucose,Whole Blood 138 mg/dL (70-110)
[2025-02-05 16:12] LABS: INR 1.2 (<1.2); Partial Thromboplastin Time 24.9 sec (22.0-30.0); Prothrombin Time 12.7 sec (10.0-12.5)
[2025-02-05] MEDS: ASPIRIN 81 MG PO STA (16:48)
[2025-02-05] MEDS: FUROSEMIDE 10 MG/ML 4 ML VIAL IV STA (16:50)
[2025-02-05 20:33] LABS: Glucose,Whole Blood 110 mg/dL (70-110)
[2025-02-05 21:01] LABS: Glucose,Whole Blood 111 mg/dL (70-110)
[2025-02-05] MEDS: metFORMIN 500 MG TAB PO SCH (22:08)
[2025-02-05] MEDS: LOSARTAN 50 MG TAB PO SCH (22:08)
[2025-02-06 07:48] LABS: Glucose,Whole Blood 107 mg/dL (70-110)
[2025-02-06] MEDS: INSULIN LISPRO (HumaLOG) 100 UNIT/ML 10 mL VL SQ SCH ×3 (07:52→18:51)
[2025-02-06] MEDS: hydroCHLOROthiazide 25 MG TAB PO SCH (08:31)
[2025-02-06] MEDS: ATORVASTATIN 20 MG TAB PO SCH (08:31)
[2025-02-06] MEDS: PARoxetine 20 MG TAB PO SCH (08:31)
[2025-02-06 12:21] LABS: Glucose,Whole Blood 194 mg/dL (70-110)
--- NOTE | 2025-02-06 12:40 | P.HPIM ---
History of Present Illness Patient came with complaints of shortness of breath exertional dyspnea has been going on for a week and a half along with orthopnea denied any paroxysmal nocturnal dyspnea. Patient is on oxygen here requiring about 2 L saturating at 97% does not use oxygen at home. Patient denied any fever chills nausea vomiting dysuria. Patient does have bilateral lower extremity edema and complaints of weight gain about 20 pounds. Chest x-ray is suspicious for CHF although patient is obese interfering with the interpretation. Patient's proBNP is not very high at around 1800 but again patient is obese. Patient has elevated serum creatinine to 1.26 baseline is within normal limits. Patient had an echocardiogram which showed normal ejection fraction in the past. Patient does not take any Lasix or any loop diuretic but is on hydrochlorothiazide. Patient has mildly elevated troponins of 0.119 and 0.074. Patient blood glucose was low as well. EKG was atrial fibrillation some nonspecific ST-T wave changes. REVIEW OF SYSTEMS: All other systems are negative except those mentioned in the HPI PHYSICAL EXAMINATION: GENERAL: The patient is alert and oriented x3, not in any acute distress. Well developed, well nourished. HEENT: Pupils are round and equally reacting to light. EOMI. No scleral icterus. No conjunctival pallor. Normocephalic, atraumatic. No pharyngeal erythema. No thyromegaly. CARDIOVASCULAR: S1 and S2 present. No murmurs, rubs, or gallops. PULMONARY: Chest is clear to auscultation, no wheezing or crackles. ABDOMEN: Soft, nontender, nondistended, normoactive bowel sounds. No palpable organomegaly. MUSCULOSKELETAL: No joint swelling or deformity. EXTREMITIES: No cyanosis, clubbing, or pedal edema. NEUROLOGICAL: Gross neurological examination did not reveal any focal deficits. SKIN: No rashes. Assessment and plan -Possible CHF exacerbation patient had a normal ejection fraction in the past ma y be diastolic dysfunction. Will need a repeat echocardiogram which was ordered. Patient's hydrochlorothiazide will be discontinued will be started on Lasix 40 twice daily patient is any A-fib may have contributed to her heart failure cardiology will evaluate the patient - Elevated troponin possibility of NSTEMI: Unknown whether it is type I or type II -Atrial fibrillation unknown whether patient has chronic A-fib or paroxysmal A- fib patient will need anticoagulation with heparin at this time. - Acute renal failure. Prerenal azotemia from heart failure exacerbation - Hypertension -type 2 diabetes mellitus with hypoglycemia: Will obtain hemoglobin A1c will cut down long-acting as well as short acting insulin patient will be started on sliding scale as well metformin will be discontinued because of acute renal failure -Depression/anxiety disorder patient will resume SSRI DVT prophylaxis: Will be started on IV heparin Past Medical History Past Medical History: Heart Failure, Diabetes Mellitus, Hyperlipidemia, Hypertension History of Any Multi-Drug Resistant Organisms: None Reported Past Surgical History: Cholecystectomy, Heart Catheterization Past Anesthesia/Blood Transfusion Reactions: No Reported Reaction Past Psychological History: Anxiety Smoking Status: Never smoker Past Alcohol Use History: Rare Past Drug Use History: None Reported - Past Family History Father Family Medical History: Congestive Heart Failure (CHF), Diabetes Mellitus Mother Family Medical History: Congestive Heart Failure (CHF), Diabetes Mellitus Son(s) Family Medical History: Diabetes Mellitus Sister(s) Family Medical History: Diabetes Mellitus Medications and Allergies Home Medications Medication Instructions Recorded Confirmed Type INSULIN ASPART (NovoLOG) [NovoLOG 20 unit SQ TID-W/MEALS 05/28/23 02/05/25 History (formulary)] PARoxetine HCL [Paxil] 20 mg PO DAILY 05/28/23 02/05/25 History hydroCHLOROthiazide [Hydrodiuril] 25 mg PO DAILY 05/28/23 02/05/25 History metFORMIN HCL [Glucophage] 1,000 mg PO BID 05/28/23 02/05/25 History Losartan [Cozaar] 50 mg PO HS 10/01/24 02/05/25 History Insulin Glargine,Hum.rec.anlog 140 units SQ HS 02/05/25 02/05/25 History [Toujeo Max Solostar] Lovastatin [Mevacor] 80 mg PO DAILY 02/05/25 02/05/25 History Allergies Allergy/AdvReac Type Severity Reaction Status Date / Time No Known Allergies Allergy Verified 02/05/25 16:28 Physical Exam Vitals: Vital Signs Temp Pulse Pulse Pulse Resp BP BP 02/06/25 07:15 97.7 F 50 L 16 02/06/25 02:00 98.0 F 70 17 137/72 02/05/25 20:53 98.1 F 76 17 127/67 02/05/25 20:35 98.0 F 52 L 20 126/72 02/05/25 20:00 98.0 F 52 L 20 129/69 02/05/25 19:00 98.3 F 55 L 15 146/72 02/05/25 18:00 54 L 16 158/67 02/05/25 17:00 80 19 142/63 02/05/25 16:00 64 20 139/73 02/05/25 15:00 98.2 F 55 L 31 H 139/58 02/05/25 14:00 56 L 17 136/55 02/05/25 13:55 56 L 20 02/05/25 13:53 98.5 F 58 L 16 139/58 BP Pulse Ox 02/06/25 07:15 106/55 96 02/06/25 02:00 97 02/05/25 20:53 98 02/05/25 20:35 98 02/05/25 20:00 97 02/05/25 19:00 96 02/05/25 18:00 97 02/05/25 17:00 99 02/05/25 16:00 99 02/05/25 15:00 97 02/05/25 14:00 97 02/05/25 13:55 02/05/25 13:53 100 Intake and Output 02/05/25 02/06/25 02/06/25 22:59 06:59 14:59 Intake Total 240 Output Total 750 350 Balance -750 -110 Intake: Oral 240 Output: Urine 750 350 Other: # Voids 1 400 Weight 103.782 kg Results CBC & Chem 7: 02/05/25 14:07 02/05/25 14:07 Labs: Abnormal Lab Results - Last 24 Hours (Table) 02/05/25 02/05/25 02/05/25 Range/Units 14:07 14:07 14:07 MCHC 31.0 L (32.0-37.0) g/dL Lymphocytes # 0.80 L (0.90-5.00) 10*3/uL Monocytes # 1.02 H (0.20-1.00) 10*3/uL PT (10.0-12.5) sec INR (<1.2) BUN 49 H (7-17) mg/dL Creatinine 1.26 H (0.52-1.04) mg/dL Glucose 46 L* (74-99) mg/dL POC Glucose (mg/dL) (70-110) mg/dL Plasma Lactic Acid Zhang 4.3 H* (0.7-2.0) mmol/L AST 40 H (14-36) U/L Troponin I (0.000-0.034) ng/mL 02/05/25 02/05/25 02/05/25 Range/Units 14:07 15:29 15:46 MCHC (32.0-37.0) g/dL Lymphocytes # (0.90-5.00) 10*3/uL Monocytes # (0.20-1.00) 10*3/uL PT 12.7 H (10.0-12.5) sec INR 1.2 H (<1.2) BUN (7-17) mg/dL Creatinine (0.52-1.04) mg/dL Glucose (74-99) mg/dL POC Glucose (mg/dL) 138 H (70-110) mg/dL Plasma Lactic Acid Zhang (0.7-2.0) mmol/L AST (14-36) U/L Troponin I 0.119 H* (0.000-0.034) ng/mL 02/05/25 02/05/25 02/05/25 Range/Units 15:46 19:27 20:58 MCHC (32.0-37.0) g/dL Lymphocytes # (0.90-5.00) 10*3/uL Monocytes # (0.20-1.00) 10*3/uL PT (10.0-12.5) sec INR (<1.2) BUN (7-17) mg/dL Creatinine (0.52-1.04) mg/dL Glucose (74-99) mg/dL POC Glucose (mg/dL) 111 H (70-110) mg/dL Plasma Lactic Acid Zhang 3.5 H* 3.1 H* (0.7-2.0) mmol/L AST (14-36) U/L Troponin I (0.000-0.034) ng/mL 02/06/25 02/06/25 Range/Units 09:53 12:20 MCHC (32.0-37.0) g/dL Lymphocytes # (0.90-5.00) 10*3/uL Monocytes # (0.20-1.00) 10*3/uL PT (10.0-12.5) sec INR (<1.2) BUN (7-17) mg/dL Creatinine (0.52-1.04) mg/dL Glucose (74-99) mg/dL POC Glucose (mg/dL) 194 H (70-110) mg/dL Plasma Lactic Acid Zhang (0.7-2.0) mmol/L AST (14-36) U/L Troponin I 0.074 H* (0.000-0.034) ng/mL
--- NOTE | 2025-02-06 13:26 | P.CRDCN ---
History of Present Illness Consult date: 02/06/25 Consult reason: congestive heart failure, shortness of breath Chief complaint: shortness of breath, edema History of present illness: History of present illness: Patient is a pleasant 69-year-old female with significant past medical history of heart failure, mild CAD, moderate aortic stenosis, diabetes type 2, psoriasi s, who presented for worsening shortness of breath and leg swelling. She has not followed up with cardiology since 05/2023. She has worsening shortness of breath with exertion or laying falt for the past 1.5 weeks. She feels ok at rest. No chest pain or pressure. She has put on 20lb weight, legs are swelling. Labs reviewed: WBC 8.2, Hgb 12.1, d-dimer 0.79, K+ 4.5, creat 1.26, trop 0.119, trop 0.074, BNP 1800, TSH normal. Chest x-ray shows cardiomegaly and mild pulmonary vascular congestion. EKG shows sinus rhythm with secondary heart block type 2, similar to prior EKG from 2022, appears [place] with similar episodes in past. Possible isorhythmic AV disassociation, eval for higher degree block. She did have prior heart catheterization 05/2023 which showed mild CAD 20-30% of the LAD, moderate aortic stenosis. REVIEW OF SYSTEMS: No fever or chills. No cough or expectoration. No diaph oresis. Patient denies headache, dizziness, blurred vision, double vision. Patient denies any stomach discomfort. No nausea, vomiting. No hematochezia. No hematemesis. Denies any black stools or blood in his stools. Denies dysuria or hematuria. No muscle weakness or numbness. No chest pain or pressure. PHYSICAL EXAMINATION: This is a 69-year-old female in no apparent distress at the time of my examination. HEENT: Head is atraumatic, normocephalic. Pupils are equal, round. Sclerae anicteric. Conjunctivae are clear. Mucous membranes of the mouth are moist. Neck is supple. There is no jugular venous distention. No carotid bruit is heard. CHEST EXAMINATION: Lungs are clear to auscultation. No chest wall tenderness is noted on palpation or with deep breathing. HEART EXAMINATION: Heart regular rate and rhythm. S1, S2 heard with some irregularity, 3/6 systolic murmur. No gallops or rub. ABDOMEN: Soft, nontender. Bowel sounds are heard. EXTREMITIES: 2+ peripheral pulses with 2+peripheral edema and no calf tenderness noted. NEUROLOGIC EXAMINATION: Patient is awake, alert and oriented x3. IMPRESSION AND PLAN: Mild CAD, 20-30% LAD stenosis on [facility] 05/2023 Moderate aortic stenosis Diabetes type 2 Acute on chornic diastolic heart failure Abnormal EKG, second-degree heart block type II similar to previous Lower extremity edema NSTEMI PLAN: We will check ECHO to eval heart function and structure. Heparin drip for 24 hours. Monitor telemetry, no clear high AV block, similar to prior, monitor for need for pacemaker. Continue with IV lasix. Monitor kidney function and electrolytes. Check lamda and kappa light chains. Further recommendations pending clinical course. I am dictating on behalf of Dr. Varun Taylor's history/physical and assessment/plan. Past Medical History Past Medical History: Heart Failure, Diabetes Mellitus, Hyperlipidemia, Hypertension History of Any Multi-Drug Resistant Organisms: None Reported Past Surgical History: Cholecystectomy, Heart Catheterization Past Anesthesia/Blood Transfusion Reactions: No Reported Reaction Past Psychological History: Anxiety Smoking Status: Never smoker Past Alcohol Use History: Rare Past Drug Use History: None Reported - Past Family History Father Family Medical History: Congestive Heart Failure (CHF), Diabetes Mellitus Mother Family Medical History: Congestive Heart Failure (CHF), Diabetes Mellitus Son(s) Family Medical History: Diabetes Mellitus Sister(s) Family Medical History: Diabetes Mellitus Medications and Allergies Home Medications Medication Instructions Recorded Confirmed Type INSULIN ASPART (NovoLOG) [NovoLOG 20 unit SQ TID-W/MEALS 05/28/23 02/05/25 History (formulary)] PARoxetine HCL [Paxil] 20 mg PO DAILY 05/28/23 02/05/25 History hydroCHLOROthiazide [Hydrodiuril] 25 mg PO DAILY 05/28/23 02/05/25 History metFORMIN HCL [Glucophage] 1,000 mg PO BID 05/28/23 02/05/25 History Losartan [Cozaar] 50 mg PO HS 10/01/24 02/05/25 History Insulin Glargine,Hum.rec.anlog 140 units SQ HS 02/05/25 02/05/25 History [Toujeo Max Solostar] Lovastatin [Mevacor] 80 mg PO DAILY 02/05/25 02/05/25 History Allergies Allergy/AdvReac Type Severity Reaction Status Date / Time No Known Allergies Allergy Verified 02/05/25 16:28 Physical Exam Vitals: Vital Signs Temp Pulse Pulse Pulse Resp BP BP 02/06/25 07:15 97.7 F 50 L 16 02/06/25 02:00 98.0 F 70 17 137/72 02/05/25 20:53 98.1 F 76 17 127/67 02/05/25 20:35 98.0 F 52 L 20 126/72 02/05/25 20:00 98.0 F 52 L 20 129/69 02/05/25 19:00 98.3 F 55 L 15 146/72 02/05/25 18:00 54 L 16 158/67 02/05/25 17:00 80 19 142/63 02/05/25 16:00 64 20 139/73 02/05/25 15:00 98.2 F 55 L 31 H 139/58 02/05/25 14:00 56 L 17 136/55 02/05/25 13:55 56 L 20 02/05/25 13:53 98.5 F 58 L 16 139/58 BP Pulse Ox 02/06/25 07:15 106/55 96 02/06/25 02:00 97 02/05/25 20:53 98 02/05/25 20:35 98 02/05/25 20:00 97 02/05/25 19:00 96 02/05/25 18:00 97 02/05/25 17:00 99 02/05/25 16:00 99 02/05/25 15:00 97 02/05/25 14:00 97 02/05/25 13:55 02/05/25 13:53 100 Intake and Output 02/05/25 02/06/25 02/06/25 22:59 06:59 14:59 Output Total 750 350 Balance -750 -350 Output: Urine 750 350 Other: # Voids 1 400 Weight 103.782 kg Results 02/05/25 14:07 02/05/25 14:07 Cardiac Enzymes 02/05/25 02/05/25 Range/Units 14:07 14:07 AST 40 H (14-36) U/L Troponin I 0.119 H* (0.000-0.034) ng/mL Coagulation 02/05/25 Range/Units 15:46 PT 12.7 H (10.0-12.5) sec APTT 24.9 (22.0-30.0) sec CBC 02/05/25 Range/Units 14:07 WBC 8.28 (4.50-10.00) 10*3/uL RBC 4.24 (4.10-5.20) 10*6/uL Hgb 12.1 (12.0-15.0) g/dL Hct 39.0 (37.2-46.3) % Plt Count 145 (140-440) 10*3/uL Comprehensive Metabolic Panel 02/05/25 Range/Units 14:07 Sodium 141 (137-145) mmol/L Potassium 4.5 (3.5-5.1) mmol/L Chloride 102 (98-107) mmol/L Carbon Dioxide 25 (22-30) mmol/L BUN 49 H (7-17) mg/dL Creatinine 1.26 H (0.52-1.04) mg/dL Glucose 46 L* (74-99) mg/dL Calcium 9.1 (8.4-10.2) mg/dL AST 40 H (14-36) U/L ALT 26 (4-34) U/L Alkaline Phosphatase 84 (38-126) U/L Total Protein 6.6 (6.3-8.2) g/dL Albumin 3.6 (3.5-5.0) g/dL Current Medications Generic Name Dose Route Start Last Admin Trade Name Freq PRN Reason Stop Dose Admin Acetaminophen 500 mg 02/06/25 10:26 Acetaminophen Tab 500 Mg Tab PO Q6HR PRN Fever and/ or Pain Atorvastatin Calcium 20 mg 02/06/25 09:00 02/06/25 08:31 Atorvastatin 20 Mg Tab PO 20 mg DAILY ISAÍAS Administration Hydrochlorothiazide 25 mg 02/06/25 09:00 02/06/25 08:31 Hydrochlorothiazide 25 Mg Tab PO 25 mg DAILY ISAÍAS Administration Insulin Glargine 140 unit 02/06/25 21:00 Insulin Glargine (Lantus) 100 Unit/Ml Syr SQ HS [facility] Insulin Human Lispro 20 unit 02/06/25 07:30 02/06/25 07:52 Insulin Lispro (Humalog) 100 Unit/Ml 10 Ml Vl SQ Not Given TID-W/MEALS ISAÍAS Losartan Potassium 50 mg 02/05/25 22:00 02/05/25 22:08 Losartan 50 Mg Tab PO 50 mg HS ISAÍAS Administration Metformin HCl 1,000 mg 02/05/25 22:00 02/06/25 08:31 Metformin 500 Mg Tab PO 1,000 mg BID ISAÍAS Administration Paroxetine HCl 20 mg 02/06/25 09:00 02/06/25 08:31 Paroxetine 20 Mg Tab PO 20 mg DAILY ISAÍAS Administration Intake and Output 02/05/25 02/06/25 02/06/25 22:59 06:59 14:59 Output Total 750 350 Balance -750 -350 Output: Urine 750 350 Other: # Voids 1 400 Weight 103.782 kg 02/05/25 14:07 02/05/25 14:07
[2025-02-06 13:27] LABS: INR 1.1 (<1.2); Partial Thromboplastin Time 25.4 sec (22.0-30.0); Prothrombin Time 12.2 sec (10.0-12.5)
[2025-02-06] MEDS: HEPARIN SOD,PORK IN 0.45% NACL 25,000 UNIT in 0.45% NACL 1 250ML.BAG IV SCH (13:33)
[2025-02-06 17:06] LABS: Glucose,Whole Blood 173 mg/dL (70-110)
[2025-02-06] MEDS: HEPARIN SODIUM 1,000 UN/ML (10ML VL) IV PRN (19:23)
[2025-02-06 20:18] LABS: Glucose,Whole Blood 172 mg/dL (70-110)
[2025-02-06] MEDS ORDERED: INSULIN GLARGINE (LANTUS) 100 UNIT/ML SYR SQ SCH (21:00)
[2025-02-06] MEDS: INSULIN GLARGINE (LANTUS) 100 UNIT/ML SYR SQ SCH (21:20)
[2025-02-06] MEDS: FUROSEMIDE 10 MG/ML 4 ML VIAL IV SCH (21:20)
[2025-02-07 02:27] LABS: INR 1.2 (<1.2); Partial Thromboplastin Time 47.8 sec (22.0-30.0); Prothrombin Time 12.7 sec (10.0-12.5)
[2025-02-07] MEDS: ACETAMINOPHEN TAB 500 MG TAB PO PRN (02:33)
[2025-02-07 06:14] LABS: Glucose,Whole Blood 130 mg/dL (70-110)
[2025-02-07 08:53] LABS: HCT 39.0 % (37.2-46.3); HGB 11.8 g/dL (12.0-15.0); MCH 27.6 pg (27.0-32.0); MCHC 30.3 g/dL (32.0-37.0); MCV 91.1 FL (80.0-97.0); NRBC Per 100 WBC 0 X 10*3/uL (0.00-0.01); Platelet Count 165 X 10*3/uL (140-440); RBC 4.28 X 10*6/uL (4.10-5.20); RDW 16.4 % (11.5-14.5); WBC 7.69 X 10*3/uL (4.50-10.00)
[2025-02-07 09:04] LABS: Anion Gap 13.70 mmol/L (4.00-12.00); BUN/Creat Ratio 38.70 Ratio (12.00-20.00); Blood Urea Nitrogen 38.7 mg/dL (9.0-27.0); Calcium 9.1 mg/dL (8.7-10.3); Carbon Dioxide 26.3 mmol/L (21.6-31.8); Chloride 105 mmol/L (96-109); Glucose 110 mg/dL (70-110); Magnesium 1.5 mg/dL (1.5-2.4); Potassium 4.1 mmol/L (3.5-5.5); Sodium 145 mmol/L (135-145)
[2025-02-07 12:30] LABS: Glucose,Whole Blood 123 mg/dL (70-110)
--- NOTE | 2025-02-07 13:34 | P.PN ---
Subjective Progress Note Date: 02/07/25 History of present illness: Patient is a pleasant 69-year-old female with significant past medical history of heart failure, mild CAD, moderate aortic stenosis, diabetes type 2, psoriasis, who presented for worsening shortness of breath and leg swelling. She has not followed up with cardiology since 05/2023. She has worsening shortness of breath with exertion or laying falt for the past 1.5 weeks. She feels ok at rest. No chest pain or pressure. She has put on 20lb weight, legs are swelling. Labs reviewed: WBC 8.2, Hgb 12.1, d-dimer 0.79, K+ 4.5, creat 1.26, trop 0.119, trop 0.074, BNP 1800, TSH normal. Chest x-ray shows cardiomegaly and mild pulmonary vascular congestion. EKG shows sinus rhythm with secondary heart block type 2, similar to prior EKG from 2022, appears [place] with similar e pisodes in past. Possible isorhythmic AV disassociation, eval for higher degree block. She did have prior heart catheterization 05/2023 which showed mild CAD 20-30% of the LAD, moderate aortic stenosis. 02/07/25 Denies any chest pain or pressure. Her shortness of breath has been stable and beginning to improve. No dizziness or lightheadedness. She is ambulatory to the restroom without difficulty. Heart rates on telemetry have been 4060s. Creatinine 1.0, potassium 4.1. PHYSICAL EXAMINATION: This is a 69-year-old female in no apparent distress at the time of my examination. HEENT: Head is atraumatic, normocephalic. Pupils are equal, round. Sclerae anicteric. Conjunctivae are clear. Mucous membranes of the mouth are moist. Neck is supple. There is no jugular venous distention. No carotid bruit is heard. CHEST EXAMINATION: Lungs are clear to auscultation. No chest wall tenderness is noted on palpation or with deep breathing. HEART EXAMINATION: Heart regular rate and rhythm. S1, S2 heard with some irregularity, 3/6 systolic murmur. No gallops or rub. ABDOMEN: Soft, nontender. Bowel sounds are heard. EXTREMITIES: 2+ peripheral pulses with 2+peripheral edema and no calf tenderness noted. NEUROLOGIC EXAMINATION: Patient is awake, alert and oriented x3. IMPRESSION AND PLAN: Mild CAD, 20-30% LAD stenosis on [facility] 05/2023 Moderate aortic stenosis Diabetes type 2 Acute on chornic diastolic heart failure Abnormal EKG, second-degree heart block type II similar to previous Lower extremity edema NSTEMI PLAN: We will check ECHO to eval heart function and structure. Monitor tel emetry, no clear high AV block, similar to prior, monitor for need for pacemaker. Continue with IV lasix. Monitor kidney function and electrolytes. Check lamda and kappa light chains- PENDING. Further recommendations pending clinical course. I am dictating on behalf of Dr. Varun Taylor's history/physical and assessment/plan. Objective - Vital Signs Vital signs: Vital Signs Temp 97.3 F L 02/07/25 07:34 Pulse 50 L 02/07/25 07:34 Resp 16 02/07/25 07:34 BP 109/55 02/07/25 07:34 Pulse Ox 96 02/07/25 07:34 FiO2 Intake & Output 02/06/25 02/07/25 02/07/25 18:59 06:59 18:59 Intake Total 480 57.667 240 Output Total 1300 3250 1000 Balance -820 -3192.333 -760 Intake: Intake, IV Titration 57.667 Amount Heparin Sod,Pork in 0.45% 57.667 NaCl 25,000 unit In 0.45 % NaCl 1 250ml.bag @ 9. 636 UNITS/KG/HR 10 mls/hr IV .Q24H ISAÍAS Rx#: [id number] Oral 480 240 Output: Urine 1300 3250 1000 - Labs CBC & Chem 7: 02/07/25 01:00 02/07/25 01:00 Labs: Abnormal Lab Results - Last 24 Hours (Table) 02/05/25 02/06/25 02/06/25 Range/Units 14:07 12:20 17:04 Hgb (12.0-15.0) g/dL MCHC (32.0-37.0) g/dL RDW (11.5-14.5) % MPV (9.5-12.2) FL PT (10.0-12.5) sec INR (<1.2) APTT (22.0-30.0) sec Anion Gap (4.00-12.00) mmol/L BUN (9.0-27.0) mg/dL BUN/Creatinine Ratio (12.00-20.00) Ratio POC Glucose (mg/dL) 194 H 173 H (70-110) mg/dL Hemoglobin A1c 6.8 H (<=6.0) % 02/06/25 02/06/25 02/07/25 Range/Units 18:28 20:17 01:00 Hgb 11.8 L (12.0-15.0) g/dL MCHC 30.3 L (32.0-37.0) g/dL RDW 16.4 H (11.5-14.5) % MPV 12.4 H (9.5-12.2) FL PT (10.0-12.5) sec INR (<1.2) APTT 35.3 H (22.0-30.0) sec Anion Gap (4.00-12.00) mmol/L BUN (9.0-27.0) mg/dL BUN/Creatinine Ratio (12.00-20.00) Ratio POC Glucose (mg/dL) 172 H (70-110) mg/dL Hemoglobin A1c (<=6.0) % 02/07/25 02/07/25 02/07/25 Range/Units 01:00 01:20 06:12 Hgb (12.0-15.0) g/dL MCHC (32.0-37.0) g/dL RDW (11.5-14.5) % MPV (9.5-12.2) FL PT 12.7 H (10.0-12.5) sec INR 1.2 H (<1.2) APTT 47.8 H (22.0-30.0) sec Anion Gap 13.70 H (4.00-12.00) mmol/L BUN 38.7 H (9.0-27.0) mg/dL BUN/Creatinine Ratio 38.70 H (12.00-20.00) Ratio POC Glucose (mg/dL) 130 H (70-110) mg/dL Hemoglobin A1c (<=6.0) %
--- NOTE | 2025-02-07 14:02 | P.PN ---
Subjective Patient came with complaints of shortness of breath exertional dyspnea has been going on for a week and a half along with orthopnea denied any paroxysmal nocturnal dyspnea. Patient is on oxygen here requiring about 2 L saturating at 97% does not use oxygen at home. Patient denied any fever chills nausea vomiting dysuria. Patient does have bilateral lower extremity edema and complaints of weight gain about 20 pounds. Chest x-ray is suspicious for CHF although patient is obese interfering with the interpretation. Patient's proBNP is not very high at around 1800 but again patient is obese. Patient has elevated serum creatinine to 1.26 baseline is within normal limits. Patient had an echocardiogram which showed normal ejection fraction in the past. Patient does not take any Lasix or any loop diuretic but is on hydrochlorothiazide. Patient has mildly elevated troponins of 0.119 and 0.074. Patient blood glucose was low as well. EKG was atrial fibrillation some nonspecific ST-T wave changes. 02/07/2025 Patient shortness of breath significantly improved pedal edema improved slightly serum creatinine improved to 1. Patient has good urine output. Remains on IV Lasix. Patient was eval by cardiology. Cardiology does not believe patient is in atrial fibrillation hide IV heparin was continued for a day because of el evated troponins and will be discontinued today. Patient will be started on Lovenox for DVT prophylaxis awaiting echocardiogram. REVIEW OF SYSTEMS: All other systems are negative except those mentioned in the HPI PHYSICAL EXAMINATION: GENERAL: The patient is alert and oriented x3, not in any acute distress. Well developed, well nourished. HEENT: Pupils are round and equally reacting to light. EOMI. No scleral icterus. No conjunctival pallor. Normocephalic, atraumatic. No pharyngeal erythema. No thyromegaly. CARDIOVASCULAR: S1 and S2 present. No murmurs, rubs, or gallops. PULMONARY: Chest is clear to auscultation, no wheezing or crackles. ABDOMEN: Soft, nontender, nondistended, normoactive bowel sounds. No palpable organomegaly. MUSCULOSKELETAL: No joint swelling or deformity. EXTREMITIES: No cyanosis, clubbing, or pedal edema. NEUROLOGICAL: Gross neurological examination did not reveal any focal deficits. SKIN: No rashes. Assessment and plan -Possible CHF exacerbation patient had a normal ejection fraction in the past may be diastolic dysfunction. Pending t echocardiogram . Continue IV Lasix 40 mg twice a day - Elevated troponin possibility of NSTEMI: Possibly type II -Atrial fibrillation ruled out patient has second-degree heart block as per cardiology - Acute renal failure. Prerenal azotemia from heart failure exacerbation - Hypertension -type 2 diabetes mellitus with hypoglycemia: Hypoglycemia resolved continue to hold metformin continue with present insulin regimen -Depression/anxiety disorder patient will resume SSRI DVT prophylaxis: Lovenox subcutaneous to lower dose Objective - Vital Signs Vital signs: Vital Signs Temp 97.3 F L 02/07/25 07:34 Pulse 50 L 02/07/25 07:34 Resp 16 02/07/25 07:34 BP 109/55 02/07/25 07:34 Pulse Ox 96 02/07/25 07:34 FiO2 Intake & Output 02/06/25 02/07/25 02/07/25 18:59 06:59 18:59 Intake Total 480 57.667 432.333 Output Total 1300 3250 1500 Balance -820 -3192.333 -1067.667 Intake: Intake, IV Titration 57.667 192.333 Amount Heparin Sod,Pork in 0.45% 57.667 192.333 NaCl 25,000 unit In 0.45 % NaCl 1 250ml.bag @ 9. 636 UNITS/KG/HR 10 mls/hr IV .Q24H [facility] Rx#: [id number] Oral 480 240 Output: Urine 1300 3250 1500 - Labs CBC & Chem 7: 02/07/25 01:00 02/07/25 01:00 Labs: Abnormal Lab Results - Last 24 Hours (Table) 02/05/25 02/06/25 02/06/25 Range/Units 14:07 17:04 18:28 Hgb (12.0-15.0) g/dL MCHC (32.0-37.0) g/dL RDW (11.5-14.5) % MPV (9.5-12.2) FL PT (10.0-12.5) sec INR (<1.2) APTT 35.3 H (22.0-30.0) sec Anion Gap (4.00-12.00) mmol/L BUN (9.0-27.0) mg/dL BUN/Creatinine Ratio (12.00-20.00) Ratio POC Glucose (mg/dL) 173 H (70-110) mg/dL Hemoglobin A1c 6.8 H (<=6.0) % 02/06/25 02/07/25 02/07/25 Range/Units 20:17 01:00 01:00 Hgb 11.8 L (12.0-15.0) g/dL MCHC 30.3 L (32.0-37.0) g/dL RDW 16.4 H (11.5-14.5) % MPV 12.4 H (9.5-12.2) FL PT (10.0-12.5) sec INR (<1.2) APTT (22.0-30.0) sec Anion Gap 13.70 H (4.00-12.00) mmol/L BUN 38.7 H (9.0-27.0) mg/dL BUN/Creatinine Ratio 38.70 H (12.00-20.00) Ratio POC Glucose (mg/dL) 172 H (70-110) mg/dL Hemoglobin A1c (<=6.0) % 02/07/25 02/07/25 02/07/25 Range/Units 01:20 06:12 12:29 Hgb (12.0-15.0) g/dL MCHC (32.0-37.0) g/dL RDW (11.5-14.5) % MPV (9.5-12.2) FL PT 12.7 H (10.0-12.5) sec INR 1.2 H (<1.2) APTT 47.8 H (22.0-30.0) sec Anion Gap (4.00-12.00) mmol/L BUN (9.0-27.0) mg/dL BUN/Creatinine Ratio (12.00-20.00) Ratio POC Glucose (mg/dL) 130 H 123 H (70-110) mg/dL Hemoglobin A1c (<=6.0) %
[2025-02-07 17:32] LABS: Glucose,Whole Blood 208 mg/dL (70-110)
[2025-02-07 19:58] LABS: Glucose,Whole Blood 153 mg/dL (70-110)
[2025-02-08 05:31] LABS: Glucose,Whole Blood 169 mg/dL (70-110)
[2025-02-08 08:39] LABS: Anion Gap 12.20 mmol/L (4.00-12.00); BUN/Creat Ratio 33.40 Ratio (12.00-20.00); Blood Urea Nitrogen 33.4 mg/dL (9.0-27.0); Calcium 8.8 mg/dL (8.7-10.3); Carbon Dioxide 26.8 mmol/L (21.6-31.8); Chloride 102 mmol/L (96-109); Glucose 152 mg/dL (70-110); Magnesium 1.5 mg/dL (1.5-2.4); Potassium 4.4 mmol/L (3.5-5.5); Sodium 141 mmol/L (135-145)
[2025-02-08] MEDS: ENOXAPARIN 40 MG/0.4 ML SYRINGE SQ SCH (09:28)
--- NOTE | 2025-02-08 11:26 | P.PN ---
Subjective Progress Note Date: 02/08/25 History of present illness: Patient is a pleasant 69-year-old female with significant past medical history of heart failure, mild CAD, moderate aortic stenosis, diabetes type 2, psoriasis, who presented for worsening shortness of breath and leg swelling. She has not followed up with cardiology since 05/2023. She has worsening shortness of breath with exertion or laying falt for the past 1.5 weeks. She feels ok at rest. No chest pain or pressure. She has put on 20lb weight, legs are swelling. Labs reviewed: WBC 8.2, Hgb 12.1, d-dimer 0.79, K+ 4.5, creat 1.26, trop 0.119, trop 0.074, BNP 1800, TSH normal. Chest x-ray shows cardiomegaly and mild pulmonary vascular congestion. EKG shows sinus rhythm with secondary heart block type 2, similar to prior EKG from 2022, appears [place] with similar e pisodes in past. Possible isorhythmic AV disassociation, eval for higher degree block. She did have prior heart catheterization 05/2023 which showed mild CAD 20-30% of the LAD, moderate aortic stenosis. 02/07/25 Denies any chest pain or pressure. Her shortness of breath has been stable and beginning to improve. No dizziness or lightheadedness. She is ambulatory to the restroom without difficulty. Heart rates on telemetry have been 4060s. Creatinine 1.0, potassium 4.1. 02/08/2025 Patient seen and examined. EKGs reviewed by Dr. Wu finding A-V dissociation. Blood pressure 127/55, heart rate 60, pulse ox 91% on room air. Repeat blood work reveals sodium 141, potassium 4.4, BUN 33 creatinine 1.0, magnesium 1.5. Patient is currently maintained on IV Lasix 40 mg every 12 hours. Free kappa and free lambda are pending. Echocardiogram is pending. PHYSICAL EXAMINATION: This is a 69-year-old female in no apparent distress at the time of my examination. HEENT: Head is atraumatic, normocephalic. Pupils are equal, round. Sclerae anicteric. Conjunctivae are clear. Mucous membranes of the mouth are moist. Neck is supple. There is no jugular venous distention. No carotid bruit is heard. CHEST EXAMINATION: Lungs are clear to auscultation. No chest wall tenderness is noted on palpation or with deep breathing. HEART EXAMINATION: Heart regular rate and rhythm. S1, S2 heard with some irregularity, 3/6 systolic murmur. No gallops or rub. ABDOMEN: Soft, nontender. Bowel sounds are heard. EXTREMITIES: 2+ peripheral pulses with 2+peripheral edema and no calf tenderness noted. NEUROLOGIC EXAMINATION: Patient is awake, alert and oriented x3. IMPRESSION AND PLAN: Mild CAD, 20-30% LAD stenosis on [facility] 05/2023 Moderate aortic stenosis Diabetes type 2 Acute on chornic diastolic heart failure Abnormal EKG, A-V dissociation versus second-degree heart block type II similar to previous Lower extremity edema NSTEMI PLAN: We will check ECHO to eval heart function and structure. Monitor telemetry, no clear high AV block, similar to prior, monitor for need for pacemaker. Continue with IV lasix. Monitor kidney function and electrolytes. Check lamda and kappa light chains- PENDING. Further recommendations pending clinical course. Nurse practitioner note has been reviewed, I agree with documented findings and plan of care. Patient was seen and examined. Objective - Vital Signs Vital signs: Vital Signs Temp 98.1 F 02/08/25 06:48 Pulse 60 02/08/25 06:48 Resp 15 02/08/25 06:48 BP 127/55 02/08/25 06:48 Pulse Ox 91 L 02/08/25 06:48 FiO2 Intake & Output 02/07/25 02/08/25 02/08/25 18:59 06:59 18:59 Intake Total 938.498 Output Total 1920 1800 Balance -981.502 -1800 Intake: Intake, IV Titration 218.498 Amount Heparin Sod,Pork in 0.45% 218.498 NaCl 25,000 unit In 0.45 % NaCl 1 250ml.bag @ 9. 636 UNITS/KG/HR 10 mls/hr IV .Q24H ISAÍAS Rx#: [id number] Oral 720 Output: Urine 1920 1800 Other: # Voids 700 - Labs CBC & Chem 7: 02/07/25 01:00 02/08/25 05:51 Labs: Abnormal Lab Results - Last 24 Hours (Table) 02/07/25 02/07/25 02/07/25 Range/Units 01:00 01:00 12:29 Hgb 11.8 L (12.0-15.0) g/dL MCHC 30.3 L (32.0-37.0) g/dL RDW 16.4 H (11.5-14.5) % MPV 12.4 H (9.5-12.2) FL Anion Gap 13.70 H (4.00-12.00) mmol/L BUN 38.7 H (9.0-27.0) mg/dL BUN/Creatinine Ratio 38.70 H (12.00-20.00) Ratio POC Glucose (mg/dL) 123 H (70-110) mg/dL 02/07/25 02/07/25 02/08/25 Range/Units 17:31 19:56 05:29 Hgb (12.0-15.0) g/dL MCHC (32.0-37.0) g/dL RDW (11.5-14.5) % MPV (9.5-12.2) FL Anion Gap (4.00-12.00) mmol/L BUN (9.0-27.0) mg/dL BUN/Creatinine Ratio (12.00-20.00) Ratio POC Glucose (mg/dL) 208 H 153 H 169 H (70-110) mg/dL
[2025-02-08 12:08] LABS: Glucose,Whole Blood 136 mg/dL (70-110)
[2025-02-08 12:29] VITALS: BMI 41.8
--- NOTE | 2025-02-08 13:09 | P.PN ---
Subjective Patient came with complaints of shortness of breath exertional dyspnea has been going on for a week and a half along with orthopnea denied any paroxysmal nocturnal dyspnea. Patient is on oxygen here requiring about 2 L saturating at 97% does not use oxygen at home. Patient denied any fever chills nausea vomiting dysuria. Patient does have bilateral lower extremity edema and complaints of weight gain about 20 pounds. Chest x-ray is suspicious for CHF although patient is obese interfering with the interpretation. Patient's proBNP is not very high at around 1800 but again patient is obese. Patient has elevated serum creatinine to 1.26 baseline is within normal limits. Patient had an echocardiogram which showed normal ejection fraction in the past. Patient does not take any Lasix or any loop diuretic but is on hydrochlorothiazide. Patient has mildly elevated troponins of 0.119 and 0.074. Patient blood glucose was low as well. EKG was atrial fibrillation some nonspecific ST-T wave changes. 02/08 Patient admitted with CHF Currently she is on room air Patient has minimal exertional dyspnea when she walks in the hallway She still have 2-3+ bilateral pitting leg edema Patient was consuming a lot of fluid, patient was counseled about fluid restriction and she agrees. She remains on IV Lasix Echocardiogram pending Cardiology following and metoprolol dose increased Objective - Vital Signs Vital signs: Vital Signs Temp 98.1 F 02/08/25 06:48 Pulse 60 02/08/25 06:48 Resp 15 02/08/25 09:28 BP 127/55 02/08/25 06:48 Pulse Ox 91 L 02/08/25 06:48 FiO2 Intake & Output 02/07/25 02/08/25 02/08/25 18:59 06:59 18:59 Intake Total 938.498 Output Total 1920 1800 300 Balance -981.502 -1800 -300 Weight 103.782 kg Intake: Intake, IV Titration 218.498 Amount Heparin Sod,Pork in 0.45% 218.498 NaCl 25,000 unit In 0.45 % NaCl 1 250ml.bag @ 9. 636 UNITS/KG/HR 10 mls/hr IV .Q24H ISAÍAS Rx#: [id number] Oral 720 Output: Urine 1920 1800 300 Other: Voiding Method Toilet # Voids 700 - Exam -GENERAL: The patient is alert and oriented x3, not in any acute distress. Well developed, well nourished. She is obese HEENT: Pupils are round and equally reacting to light. EOMI. No scleral icterus. No conjunctival pallor. Normocephalic, atraumatic. No pharyngeal erythema. No thyromegaly. CARDIOVASCULAR: S1 and S2 present. No murmurs, rubs, or gallops. PULMONARY: Chest is clear to auscultation, no wheezing , no crackles. ABDOMEN: Soft, nontender, nondistended, normoactive bowel sounds. No palpable o rganomegaly. MUSCULOSKELETAL: No joint swelling or deformity. -EXTREMITIES: No cyanosis, clubbing, plus bilateral pitting leg edema. NEUROLOGICAL: Gross neurological examination did not reveal any focal deficits. SKIN: No rashes. no petechiae. - Labs CBC & Chem 7: 02/07/25 01:00 02/08/25 05:51 Labs: Abnormal Lab Results - Last 24 Hours (Table) 02/06/25 02/07/25 02/07/25 Range/Units 18:28 17:31 19:56 Anion Gap (4.00-12.00) mmol/L BUN (9.0-27.0) mg/dL BUN/Creatinine Ratio (12.00-20.00) Ratio Glucose (70-110) mg/dL POC Glucose (mg/dL) 208 H 153 H (70-110) mg/dL Free [place] LC, Quant 4.12 H (0.33-1.94) mg/dL 02/08/25 02/08/25 02/08/25 Range/Units 05:29 05:51 12:08 Anion Gap 12.20 H (4.00-12.00) mmol/L BUN 33.4 H (9.0-27.0) mg/dL BUN/Creatinine Ratio 33.40 H (12.00-20.00) Ratio Glucose 152 H (70-110) mg/dL POC Glucose (mg/dL) 169 H 136 H (70-110) mg/dL Free [place] LC, Quant (0.33-1.94) mg/dL Assessment and Plan Assessment: - CHF exacerbation patient had a normal ejection fraction in the past may be diastolic dysfunction. Pending t echocardiogram . Continue IV Lasix 40 mg twice a day - Elevated troponin possibility of NSTEMI: Possibly type II - Atrial fibrillation ruled out patient has second-degree heart block as per cardiology - Acute renal failure. Prerenal azotemia from heart failure exacerbation - Hypertension -type 2 diabetes mellitus with hypoglycemia: Hypoglycemia resolved continue to hold metformin continue with present insulin regimen -Depression/anxiety disorder patient will resume SSRI DVT prophylaxis: Lovenox subcutaneous to lower dose GI prophylaxis: Pepcid
[2025-02-08 17:24] LABS: Glucose,Whole Blood 240 mg/dL (70-110)
--- NOTE | 2025-02-08 17:37 | CA ---
Transthoracic Echo Report Name: Nichelle Brooks Age: 69 Gender: F : 1955 Exam Date: 02/08/2025 07:42 Exam Location: [place] [facility] Ht (in): 62 Wt (lb): 228 Ordering Physician: Ann Ghotra Attending/Referring Phys: [id number], Brand[employer] Associate Anum Hammer RDCS Procedure CPT: Indications: sob, hx heart failure Cardiac Hx: Technical Quality: Technically difficult study Contrast 1: Definity Total Dose (mL): 2 Contrast 2: Total Dose (mL): MEASUREMENTS (Male / Female) Normal Values 2D ECHO LV Diastolic Diameter PLAX 5.6 cm 4.2 - 5.9 / 3.9 - 5.3 cm LV Systolic Diameter PLAX 4.1 cm IVS Diastolic Thickness 1.1 cm 0.6 - 1.0 / 0.6 - 0.9 cm LVPW Diastolic Thickness 1.1 cm 0.6 - 1.0 / 0.6 - 0.9 cm LV Relative Wall Thickness 0.4 RV Internal Dim ED PLAX 2.5 cm LVOT Diameter 1.5 cm LV Diastolic Volume MOD BP 89.8 cm??? 67 - 155 / 56 - 104 cm??? LV Systolic Volume MOD BP 38.1 cm??? 22 - 58 / 19 - 49 cm??? LV Ejection Fraction MOD BP 57.6 % >= 55 % LV Cardiac Index MOD BP 1229.7 cm???/min???m??? LV Diastolic Volume MOD 4C 77.2 cm??? LV Systolic Volume MOD 4C 27.7 cm??? LV Ejection Fraction MOD 4C 64.1 % LV Cardiac Index MOD 4C 1177.3 cm???/min???m??? LV Diastolic Length 4C 7.1 cm LV Systolic Length 4C 5.8 cm LV Diastolic Volume MOD 2C 105.1 cm??? LV Systolic Volume MOD 2C 49.0 cm??? LV Ejection Fraction MOD 2C 53.3 % LV Cardiac Index MOD 2C 1334.6 cm???/min???m??? LV Diastolic Length 2C 7.1 cm LV Systolic Length 2C 6.3 cm LA Volume 144.1 cm??? 18 - 58 / 22 - 52 cm??? LA Volume Index 66.0 cm???/m??? 16 - 28 cm???/m??? DOPPLER AV Peak Velocity 273.9 cm/s AV Peak Gradient 30.0 mmHg AV Mean Velocity 157.6 cm/s AV Mean Gradient 18.9 mmHg AV Velocity Time Integral 42.2 cm MV Peak Velocity 229.7 cm/s MV Peak Gradient 21.1 mmHg MV Mean Velocity 103.8 cm/s MV Mean Gradient 6.1 mmHg MV Velocity Time Integral 53.5 cm MV Area PHT 1.8 cm??? Mitral E Point Velocity 161.8 cm/s Mitral A Point Velocity 135.8 cm/s Mitral E to A Ratio 1.2 MV Deceleration Time 413.8 ms TR Peak Velocity 305.3 cm/s TR Peak Gradient 37.3 mmHg FINDINGS Left Ventricle Left ventricular ejection fraction is estimated at 60-65%. Mildly increased septal wall thickness. Mildly increased posterior wall thickness. Mildly increased left ventricular diastolic diameter. No obvious regional wall motion abnormalities. LVOT obstruction Right Ventricle Right ventricle not well visualized. Unable to estimate the right ventricular systolic pressure. Right Atrium Severe right atrial dilatation. Left Atrium Severely increased left atrial volume. Moderately increased left atrial area. Mitral Valve Mitral valve thickened. Mitral annular calcification. Moderate mitral stenosis. Trace to mild mitral regurgitation. Aortic Valve Aortic valve not well visualized. [id number] aortic stenosis with a peak gradient of 56 mmHg and a mean gradient of 48 mmHg. No aortic regurgitation. Tricuspid Valve Tricuspid valve not well visualized. No tricuspid stenosis. Mild tricuspid regurgitation. Pulmonic Valve Pulmonic valve not well visualized. No pulmonic stenosis. No pulmonic regurgitation. Pericardium No pericardial effusion. Aorta Aortic annulus normal. CONCLUSIONS Reason: Shortness of breath history of heart failure LVH with preserved systolic function Aortic valve not well-visualized but increased gradients across the aortic valve noted with peak gradient of greater than 50 mmHg Previewed by: Dr. Ricky Wu MD (Electronically Signed) Final Date: 08 February 2025 17:37
[2025-02-08 20:16] LABS: Glucose,Whole Blood 225 mg/dL (70-110)
[2025-02-08] MEDS: FAMOTIDINE 20 MG/2 ML VIAL IV SCH (21:10)
[2025-02-09 06:06] LABS: Glucose,Whole Blood 67 mg/dL (70-110)
[2025-02-09 06:32] LABS: Glucose,Whole Blood 116 mg/dL (70-110)
[2025-02-09 07:25] VITALS: BP 109/65; PULSE 70; RESP 16; TEMP 97.6
--- NOTE | 2025-02-09 12:08 | P.PN ---
Subjective Progress Note Date: 02/09/25 History of present illness: Patient is a pleasant 69-year-old female with significant past medical history of heart failure, mild CAD, moderate aortic stenosis, diabetes type 2, psoriasis, who presented for worsening shortness of breath and leg swelling. She has not followed up with cardiology since 05/2023. She has worsening shortness of breath with exertion or laying falt for the past 1.5 weeks. She feels ok at rest. No chest pain or pressure. She has put on 20lb weight, legs are swelling. Labs reviewed: WBC 8.2, Hgb 12.1, d-dimer 0.79, K+ 4.5, creat 1.26, trop 0.119, trop 0.074, BNP 1800, TSH normal. Chest x-ray shows cardiomegaly and mild pulmonary vascular congestion. EKG shows sinus rhythm with secondary heart block type 2, similar to prior EKG from 2022, appears [place] with similar e pisodes in past. Possible isorhythmic AV disassociation, eval for higher degree block. She did have prior heart catheterization 05/2023 which showed mild CAD 20-30% of the LAD, moderate aortic stenosis. 02/07/25 Denies any chest pain or pressure. Her shortness of breath has been stable and beginning to improve. No dizziness or lightheadedness. She is ambulatory to the restroom without difficulty. Heart rates on telemetry have been 4060s. Creatinine 1.0, potassium 4.1. 02/08/2025 Patient seen and examined. EKGs reviewed by Dr. Wu finding A-V dissociation. Blood pressure 127/55, heart rate 60, pulse ox 91% on room air. Repeat blood work reveals sodium 141, potassium 4.4, BUN 33 creatinine 1.0, magnesium 1.5. Patient is currently maintained on IV Lasix 40 mg every 12 hours. Free kappa and free lambda are pending. Echocardiogram is pending. 02/09/2025 Patient seen and examined. There was concern yesterday that patient had episode of atrial fibrillation but upon review it appeared to be AV dissociation. Patient is not currently on anticoagulation. She has been maintained on IV Lasix which will be switched to oral today. Echocardiogram reveals LVH with preserved systolic function. Aortic valve not well-visualized but increased gradients across the aortic valve noted with peak gradient of greater than [address] Wu discussed with the patient the need for EMEKA and then cardiac catheterization and then permanent pacemaker. Patient did have breakfast this m orning and she is agreeable to go home today and follow-up in the office with Dr. Taylor to be scheduled for the additional testing as discussed. PHYSICAL EXAMINATION: This is a 69-year-old female in no apparent distress at the time of my examination. HEENT: Head is atraumatic, normocephalic. Pupils are equal, round. Sclerae anicteric. Conjunctivae are clear. Mucous membranes of the mouth are moist. Neck is supple. There is no jugular venous distention. No carotid bruit is heard. CHEST EXAMINATION: Lungs are clear to auscultation. No chest wall tenderness is noted on palpation or with deep breathing. HEART EXAMINATION: Heart regular rate and rhythm. S1, S2 heard with some irregularity, 3/6 systolic murmur. No gallops or rub. ABDOMEN: Soft, nontender. Bowel sounds are heard. EXTREMITIES: 2+ peripheral pulses with 1+peripheral edema and no calf tenderness noted. NEUROLOGIC EXAMINATION: Patient is awake, alert and oriented x3. IMPRESSION AND PLAN: Mild CAD, 20-30% LAD stenosis on [facility] 05/2023 Moderate aortic stenosis Diabetes type 2 Acute on chornic diastolic heart failure Abnormal EKG, A-V dissociation versus second-degree heart block type II similar to previous Lower extremity edema NSTEMI PLAN: Transition IV Lasix to oral 40 mg daily Continue atorvastatin Abnormal free kappa at 4.12, free lambda normal 2.62 Patient is cleared for discharge from a cardiology perspective and will follow- up in the next week with Dr. Taylor to be scheduled for EMEKA. Nurse practitioner note has been reviewed, I agree with documented findings and plan of care. Patient was seen and examined. Objective - Vital Signs Vital signs: Vital Signs Temp 97.6 F 02/09/25 07:24 Pulse 70 02/09/25 07:24 Resp 16 02/09/25 07:24 BP 109/65 02/09/25 07:24 Pulse Ox 97 02/09/25 07:24 FiO2 Intake & Output 02/08/25 02/09/25 02/09/25 18:59 06:59 18:59 Intake Total 322 0 Output Total 900 900 Balance -578 -900 Weight 103.782 kg Intake: Oral 322 0 Output: Urine 900 900 Other: Voiding Method Toilet Toilet - Labs CBC & Chem 7: 02/07/25 01:00 02/08/25 05:51 Labs: Abnormal Lab Results - Last 24 Hours (Table) 02/06/25 02/08/25 02/08/25 Range/Units 18:28 12:08 17:22 POC Glucose (mg/dL) 136 H 240 H (70-110) mg/dL Free [place] LC, Quant 4.12 H (0.33-1.94) mg/dL 02/08/25 02/09/25 02/09/25 Range/Units 20:14 06:04 06:30 POC Glucose (mg/dL) 225 H 67 L 116 H (70-110) mg/dL Free [place] LC, Quant (0.33-1.94) mg/dL
[2025-02-09 12:17] LABS: Glucose,Whole Blood 204 mg/dL (70-110)
--- NOTE | 2025-02-10 06:53 | P.DS ---
Providers Date of admission: 02/05/25 15:55 Attending physician: Rona Melgoza Consults: 02/05/25 15:54 Consult Physician Routine Consulting Provider: Varun Taylor Consult Reason/Comments: heart failure, trop elevation Do you want consulting provider notified?: Yes Primary care physician: Tomasz Singh [facility] Course: Diagnoses: - CHF exacerbation patient had a normal ejection fraction in the past may be diastolic dysfunction. - Elevated troponin possibility of NSTEMI: Possibly type II - Atrial fibrillation ruled out patient has second-degree heart block as per cardiology - Acute renal failure. Prerenal azotemia from heart failure exacerbation, resolved - Hypertension -type 2 diabetes mellitus with hypoglycemia: -Depression/anxiety disorder, not an active issue Hospital course: Patient came with complaints of shortness of breath exertional dyspnea has been going on for a week and a half along with orthopnea denied any paroxysmal nocturnal dyspnea. Patient evaluated by special education superintendent and found to have acute CHF exacerbation she was treated with IV Lasix she had good urine output and her symptoms improved. Patient denies any chest pain or dyspnea any other new complaint upon discharge Echocardiogram showed ejection fraction 60 to 65% Patient was cleared for discharge by special education superintendent Problems and management plan were discussed with the patient and he verbalized understanding and acceptance Patient was found stable and can be discharged home in guarded prognosis however he needs follow-up as an outpatient. Patient was instructed to follow up with PCP within one week and patient agrees Patient was instructed to follow-up with special education superintendent Dr. Taylor in 1 week and she agrees Physical exam Gen: patient is a AAOx3, no distress CVS: S1-S2, RRR, no murmur Lungs: B/L CTA, no wheezing Abdomen: soft, no distention, no tenderness, positive bowel sounds Extremity: no leg edema or induration Time spent more than 35 minutes Patient Condition at Discharge: Fair Plan - Discharge Summary Discharge Rx Participant: No New Discharge Prescriptions: New Furosemide [Lasix] 40 mg PO DAILY #30 tab Continue metFORMIN HCL [Glucophage] 1,000 mg PO BID INSULIN ASPART (NovoLOG) [NovoLOG (formulary)] 20 unit SQ TID-W/MEALS PARoxetine HCL [Paxil] 20 mg PO DAILY Lovastatin [Mevacor] 80 mg PO DAILY Insulin Glargine,Hum.rec.anlog [Toujeo Max Solostar] 140 units SQ HS Discontinued hydroCHLOROthiazide [Hydrodiuril] 25 mg PO DAILY Losartan [Cozaar] 50 mg PO HS Discharge Medication List INSULIN ASPART (NovoLOG) [NovoLOG (formulary)] 20 unit SQ TID-W/MEALS 05/28/23 [History] PARoxetine HCL [Paxil] 20 mg PO DAILY 05/28/23 [History] metFORMIN HCL [Glucophage] 1,000 mg PO BID 05/28/23 [History] Insulin Glargine,Hum.rec.anlog [Toujeo Max Solostar] 140 units SQ HS 02/05/25 [History] Lovastatin [Mevacor] 80 mg PO DAILY 02/05/25 [History] Furosemide [Lasix] 40 mg PO DAILY #30 tab 02/09/25 [Rx] Follow up Appointment(s)/Referral(s): Varun Taylor DO [STAFF PHYSICIAN] - 02/12/25 10:45 am ( follow-up in the next week with Dr. Taylor to be scheduled for EMEKA.) Tomasz Singh DO [Primary Care Provider] - 1-2 days Patient Instructions/Handouts: Heart Failure (DC) Activity/Diet/Wound Care/Special Instructions: Herat healthy diet activity is restricted till you see your doctor Discharge Disposition: HOME SELF-CARE
[2025-02-10] MEDS ORDERED: FUROSEMIDE 40 MG TAB PO SCH (09:00)
[2025-02-10] MEDS ORDERED: FAMOTIDINE 20 MG/2 ML VIAL IV SCH (09:00)
== END 2025-02-09 14:27 | disposition home or self-care (01) | DRG 280 ==
LOC: EC 13:47 → 6NMEDSUR 15:54 → OBSVTOIN 15:55 → 6NMEDSUR 20:06
PROVIDERS: ADMIT Hospitalist; ATTEND Hospitalist
DX: I11.0 Hypertensive heart disease with heart failure (principal); I50.33 Acute on chronic diastolic (congestive) heart failure; I21.A1 Myocardial infarction type 2; N17.9 Acute kidney failure, unspecified; I45.89 Other specified conduction disorders; E11.649 Type 2 diabetes mellitus with hypoglycemia without coma; E66.9 Obesity, unspecified; F32.A Depression, unspecified; I35.0 Nonrheumatic aortic (valve) stenosis; Z79.4 Long term (current) use of insulin; I48.91 Unspecified atrial fibrillation; I44.1 Atrioventricular block, second degree; E78.5 Hyperlipidemia, unspecified; F41.9 Anxiety disorder, unspecified; I25.10 Atherosclerotic heart disease of native coronary artery without angina pectoris; Z79.84 Long term (current) use of oral hypoglycemic drugs; Z79.899 Other long term (current) drug therapy; Z82.49 Family history of ischemic heart disease and other diseases of the circulatory system; Z90.49 Acquired absence of other specified parts of digestive tract
CPT/HCPCS: 36415; 71046; 80048; 80053; 83036; 83605; 83735; 83880; 83883; 84443; 84484; 85025; 85027; 85610; 85730; 93005; 93306; 96374; 96375; 99291

== ENCOUNTER 2025-03-03 05:33 | Day surgery (SDC) | payer MEDICARE ==
[2025-03-03] MEDS ORDERED: ALPRAZolam 0.25 MG TAB PO PRN (06:16)
[2025-03-03] MEDS ORDERED: NITROGLYCERIN SL TABS 0.4 MG TAB SUBLINGUAL PRN (06:16)
[2025-03-03] MEDS ORDERED: ALPRAZolam 0.5 MG TAB PO PRN (06:16)
[2025-03-03] MEDS: ASPIRIN 325 MG TAB PO STA (06:20)
[2025-03-03] MEDS: SODIUM CHLORIDE 0.9% 1,000 ML in EMPTY BAG 1 BAG IV SCH (06:20)
[2025-03-03] MEDS: IV FLUID CONTINUATION 1,000 ML IV ONE (06:21)
[2025-03-03 06:45] VITALS: RESP 16; TEMP 98.7
[2025-03-03 06:48] LABS: Glucose,Whole Blood 45 mg/dL (70-110)
[2025-03-03 06:58] LABS: Glucose,Whole Blood 57 mg/dL (70-110)
[2025-03-03 07:25] LABS: Glucose,Whole Blood 62 mg/dL (70-110)
[2025-03-03] MEDS: BENZOCAINE SPRAY 1 EACH MUCOUS MEM ONE ×2 (07:25→07:32)
[2025-03-03] MEDS: MIDAZOLAM 2 MG/2 ML VIAL IVP ONE (07:31)
[2025-03-03] MEDS: fentaNYL (PF) 50 MCG/ML 2 ML AMP IVP ONE (07:31)
[2025-03-03] MEDS: HEPARIN SODIUM,PORCINE 10,000 UNIT in SODIUM CHLORIDE 0.9% 1,000 ML IRRIGATION PRN (07:36)
[2025-03-03] MEDS: HEPARIN SODIUM,PORCINE (1 ML) 2,500 UNIT in SODIUM CHLORIDE 0.9% 250 ML IRRIGATION PRN (07:36)
[2025-03-03] MEDS: VERAPAMIL SYRINGE (5 MG/10 ML) INTRAARTER ONE (08:13)
[2025-03-03] MEDS: LIDOCAINE 1% INJ 10MG/ML (20 ML MDV) SQ ONE (08:13)
[2025-03-03] MEDS: HEPARIN SODIUM 1,000 UN/ML (10ML VL) IVP ONE (08:17)
[2025-03-03] MEDS: IOPAMIDOL-370 100ML BTL INJ ONE (08:47)
--- NOTE | 2025-03-03 08:59 | P.TEE ---
Description of Procedure(s): Procedure performed: Transesophageal Echocardiogram with color flow doppler, pulsed wave doppler and continuous wave doppler, moderate conscious sedation Moderate conscious sedation: Moderate conscious sedation was supplied with direct supervision of myself using Versed and Fentanyl. Complications: none Indications: Aortic stenosis PROCEDURE: After the risks, benefits and alternatives of the above mentioned procedure was explained in detail with the patient, informed consent was obtained. Patient was brought to the lab in a fasting state. Patient was given IV Versed and Fentanyl for sedation. The throat was sprayed with Hurricane to anesthetize the throat. A lubricated Omni probe was then introduced into the esophagus and stomach and multiple views were obtained. 2D echo with color flow doppler, pulsed wave doppler and continuous wave doppler was utilized. Agitated saline bubbles were injected to assess for any intra-atrial shunt. The probe was then removed. Patient tolerated the procedure well. Patient was transferred to the post procedure area in stable and satisfactory condition. FINDINGS: 1. The aortic valve is tricuspid with severe aortic stenosis with JOSE LUIS 0.7cm2 and mild aortic insufficiency. 2. The mitral valve appears be normal with mild to moderate regurgitation. 3. Tricuspid valve appears to be normal with severe tricuspid regurgitation. 4. The interatrial septum is intact. No evidence of PFO. 5. Left atrial appendage is free of clot. 6. Left ventricular EF 50-55%
--- NOTE | 2025-03-03 09:05 | P.CARDCATH ---
Description of Procedure: PROCEDURES PERFORMED: Bilateral coronary angiography, ultrasound guided arterial access INDICATION: Severe aortic stenosis CONSENT:I have discussed the risks, benefits and alternative therapies for the above-mentioned procedure and for both sedation/analgesia as well as necessary blood product administration, if indicated, as they pertain to this patient. The patient has indicated understanding and acceptance of the risks and procedures discussed. PROCEDURE: After the risks, benefits and alternatives of the above mentioned p rocedure explained in detail with the patient, informed consent was obtained. Patient was taken to the catheterization lab and prepped and draped in usual fashion. Ultrasound guidance was used to assess for arterial access. 1% lidocaine was used to anesthetize the right radial artery. A 6-[place] sheath was placed in the right radial artery using modified Seldinger technique and ultrasound guidance. Left coronary angiography was performed with a 5-[place] JL 3.5 catheter. Right coronary angiography had previously been noted to be extremely difficult and therefore a 6FR AL 0.75 guide was used with the help of a guideliner and a 0.014 BMW wire to engage and angiography was performed of the RCA in various views. The right radial sheath was removed and a TR band was placed with hemostasis achieved. The patient tolerated the procedure well. Patient was transported back to the post catheterization holding area in stable condition. Conscious Sedation: Patient was monitored under the direct supervision of myself for conscious sedation using Versed and fentanyl for a total duration of 19 minutes HEMODYNAMICS: Ao: 146/71 SELECTIVE CORONARY ARTERIOGRAPHY: LEFT MAIN: The left main is a large caliber vessel which bifurcates into the LAD and circumflex. There is no significant stenosis. LEFT ANTERIOR DESCENDING CORONARY ARTERY: LAD is a large caliber vessel which wraps around to the apex. There is is 20-30% proximal and mid LAD 30% stenosis. LEFT CIRCUMFLEX CORONARY ARTERY: Left circumflex is a moderate caliber vessel without significant stenosis. RIGHT CORONARY ARTERY: The right coronary artery is a large caliber vessel which gives off a PDA and PLV branch and is the dominant vessel. There are mild luminal irregularities FINAL IMPRESSION: 1. Mild CAD as described above inclulding 20-30% LAD stenosis and mild luminal irregularities of the RCA PLAN: 1. Aggressive risk factor modification per most recent ACC/AHA guidelines. 2. Evaluate for AVR
[2025-03-03 10:36] LABS: Glucose,Whole Blood 70 mg/dL (70-110)
[2025-03-03 13:39] VITALS: BP 128/76; PULSE 64
== END 2025-03-03 12:34 | disposition home or self-care (01) ==
LOC: CATHCVL 05:33
PROVIDERS: ATTEND Internal Medicine
DX: I08.3 Combined rheumatic disorders of mitral, aortic and tricuspid valves (principal); I25.10 Atherosclerotic heart disease of native coronary artery without angina pectoris; E11.9 Type 2 diabetes mellitus without complications; E78.2 Mixed hyperlipidemia; I11.0 Hypertensive heart disease with heart failure; I44.1 Atrioventricular block, second degree; I25.2 Old myocardial infarction; I50.42 Chronic combined systolic (congestive) and diastolic (congestive) heart failure; Z79.82 Long term (current) use of aspirin; Z79.84 Long term (current) use of oral hypoglycemic drugs; Z79.4 Long term (current) use of insulin; Z79.899 Other long term (current) drug therapy
CPT/HCPCS: 99152; 93312; 93320; 93325; 93454; C1769 ×2; C1887 ×2; C1894; J2250; J1644 ×3; J2003; J3010; Q9967